=== PATIENT | male | born 1960 | race Caucasian/White ===

== ENCOUNTER → 2016-08-29 | Outpatient (CLI) | payer BC ==
[~2016-08-29] MED LIST: LOSA100T65 PO; ONDA4TAB10 SL; PANT1TAB48 PO; VTMD1000 PO
[2016-08-29 14:16] LABS: ESTIMATED AVERAGE GLUCOSE 148 mg/dl; HA1C FLAG Normal (Normal)
[2016-08-29 14:20] LABS: ALT/SGPT 33 U/L (12-78); BLOOD UREA NITROGEN 11 mg/dl (7-18); BUN/CREATININE RATIO 13.6 (10-20); CALCIUM 9.1 mg/dl (8.5-10.1); CARBON DIOXIDE 24 mmol/L (21-32); CHLORIDE 107 mmol/L (98-107); CREATININE 0.84 mg/dl (0.60-1.40); GLUCOSE 114 mg/dl (70-99); POTASSIUM 3.9 mmol/L (3.5-5.1); SODIUM 141 mmol/L (136-145)
[2016-08-29 14:23] LABS: ALB/GLOB RATIO 0.9 (0.9-2); ALKALINE PHOSPHATASE 73 U/L (45-117); AST/SGOT 21 U/L (15-37)
== END | disposition home or self-care (01) ==
LOC: C.LABBC 09:14
PROVIDERS: ATTEND Family Medicine
DX: I10 Essential (primary) hypertension (principal); E11.9 Type 2 diabetes mellitus without complications

== ENCOUNTER → 2017-01-16 | Outpatient (CLI) | payer BC ==
[~2017-01-16] MED LIST changes: -ONDA4TAB10 SL
[2017-01-16 13:39] LABS: BASO % 0.4 %; BASO ABS # 0.03 K/uL (0-0.2); COMPLETE YES; EOS % 4.8 %; HEMATOCRIT 41.3 % (42-52); IG% 0.5 %; LYMPH % 28.1 %; LYMPH ABS # 2.33 K/uL (1.2-3.4); MEAN CELL VOLUME 90.8 fL (80-100); MEAN CORPUSCULAR HEMOGLOBIN 30.3 pg (25-34); MEAN CORPUSCULAR HGB CONC 33.4 g/dl (32-36); MEAN PLATELET VOLUME 10.6 fL (7.4-10.4); MONO % 11.6 %; NEUT % 54.6 %; PLATELET COUNT 254 K/uL (130-400); RED BLOOD COUNT 4.55 M/uL (4.7-6.1); WHITE BLOOD COUNT 8.29 K/uL (4.8-10.8)
[2017-01-16 13:52] LABS: ESTIMATED AVERAGE GLUCOSE 137 mg/dl; HA1C FLAG Normal (Normal)
[2017-01-16 13:55] LABS: BLOOD UREA NITROGEN 13 mg/dl (7-18); BUN/CREATININE RATIO 13.9 (10-20); C-REACTIVE PROTEIN < 0.29 mg/dl (0-0.29); CALCIUM 8.8 mg/dl (8.5-10.1); CARBON DIOXIDE 26 mmol/L (21-32); CHLORIDE 106 mmol/L (98-107); CREATININE 0.94 mg/dl (0.60-1.40); GLUCOSE 106 mg/dl (70-99); POTASSIUM 3.8 mmol/L (3.5-5.1); SODIUM 139 mmol/L (136-145)
[2017-01-16 13:58] LABS: ALKALINE PHOSPHATASE 72 U/L (45-117); ALT/SGPT 41 U/L (12-78); AST/SGOT 26 U/L (15-37)
== END | disposition home or self-care (01) ==
LOC: C.LABBC 09:28
PROVIDERS: ATTEND Physician Assistant
DX: K50.90 Crohn's disease, unspecified, without complications (principal)

== ENCOUNTER → 2017-03-13 | Outpatient (CLI) | payer BC ==
[2017-03-13 16:49] LABS: BASO % 0.3 %; BASO ABS # 0.03 K/uL (0-0.2); COMPLETE YES; IG% 0.3 %; LYMPH % 28.6 %; MEAN CELL VOLUME 90.1 fL (80-100); MEAN CORPUSCULAR HEMOGLOBIN 31.1 pg (25-34); MEAN CORPUSCULAR HGB CONC 34.5 g/dl (32-36); MEAN PLATELET VOLUME 10.7 fL (7.4-10.4); NEUT % 57.8 %; PLATELET COUNT 279 K/uL (130-400); RED BLOOD COUNT 4.44 M/uL (4.7-6.1); WHITE BLOOD COUNT 8.73 K/uL (4.8-10.8)
[2017-03-13 17:08] LABS: ALT/SGPT 32 U/L (12-78); BLOOD UREA NITROGEN 17 mg/dl (7-18); BUN/CREATININE RATIO 19.3 (10-20); C-REACTIVE PROTEIN 0.41 mg/dl (0-0.29); CARBON DIOXIDE 26 mmol/L (21-32); CHLORIDE 108 mmol/L (98-107); CREATININE 0.89 mg/dl (0.60-1.40); GLUCOSE 157 mg/dl (70-99); POTASSIUM 3.6 mmol/L (3.5-5.1); SODIUM 140 mmol/L (136-145)
[2017-03-13 17:16] LABS: ALB/GLOB RATIO 0.9 (0.9-2); ALKALINE PHOSPHATASE 77 U/L (45-117); AST/SGOT 21 U/L (15-37)
[2017-03-13 17:20] LABS: URINE PROTIEN/CREAT RATIO 0.1 (0-0.2); URINE TOTAL PROTEIN 17.5 mg/dl (0-11.9)
--- NOTE | 2017-03-26 14:00 | CODING QUERY MEDICAL NECESSITY ---
CQSUPPORTING DIAGNOSIS NEEDED A supporting diagnosis is required for the test/procedure performed on this patient in order for us to be reimbursed by the patient's insurance. Please provide a supporting diagnosis for the following test/procedure listed below next to the test name along with your signature. *If there is no additional diagnosis for this patient that would support the following test/procedure please document that below next to the test/procedure. Test(s)/Procedure(s) that require a supporting diagnosis: DOS 03/13/17 PROSTATE SPECIFIC TEST ORDERED BY DIEGO BERNABE Provider Signature: Date: Thank you Mamta Felton Health Information Management Once completed, please kindly fax back to [phone] For questions please call [phone]
== END | disposition home or self-care (01) ==
LOC: C.LABBC 14:03
PROVIDERS: ATTEND Pediatrics Pediatric Hematology-Oncology
DX: Z00.00 Encounter for general adult medical examination without abnormal findings (principal); E11.9 Type 2 diabetes mellitus without complications; K50.90 Crohn's disease, unspecified, without complications

== ENCOUNTER → 2017-06-22 | Outpatient (CLI) | payer BC ==
[~2017-06-22] MED LIST changes: +ADAL40KI SC; +ATOR-24 PO; +CHOL2000 PO; -PANT1TAB48 PO; +PRT/20 PO; -VTMD1000 PO
--- NOTE | 2017-06-22 12:14 | DIAGNOSTIC IMAGING REPORT ---
CHEST 2 VIEWS ROUTINE HISTORY: 57 years-old Male CROHN'S DISEASE, K50.90 follow-up study. No acute chest complaints. COMPARISON: Portable chest radiograph 02/18/2016 TECHNIQUE: PA and lateral views of the chest FINDINGS: Cardiomediastinal and hilar silhouettes are within normal limits. No pneumothorax, pleural effusion, focal airspace consolidation or overt pulmonary edema. Bones of the chest are grossly intact. Mild multilevel endplate spurring of the spine. IMPRESSION: No acute cardiopulmonary process. The above report was generated using voice recognition software. It may contain grammatical, syntax or spelling errors. Electronically signed by: Nahum Concepcion M.D. 06/22/2017 12:13 PM Dictated Date/Time: 06/22/2017 12:12 PM
[2017-06-22 13:55] LABS: BASO % 0.4 %; BASO ABS # 0.03 K/uL (0-0.2); COMPLETE YES; EOS % 4.7 %; HEMATOCRIT 40.3 % (42-52); IG% 0.5 %; LYMPH % 30.2 %; LYMPH ABS # 2.53 K/uL (1.2-3.4); MEAN CELL VOLUME 92.2 fL (80-100); MEAN CORPUSCULAR HEMOGLOBIN 30.4 pg (25-34); MEAN PLATELET VOLUME 10.8 fL (7.4-10.4); MONO % 9.3 %; NEUT % 54.9 %; PLATELET COUNT 274 K/uL (130-400); RED BLOOD COUNT 4.37 M/uL (4.7-6.1); WHITE BLOOD COUNT 8.38 K/uL (4.8-10.8)
[2017-06-22 14:43] LABS: ALT/SGPT 39 U/L (12-78); AST/SGOT 19 U/L (15-37); BLOOD UREA NITROGEN 13 mg/dl (7-18); BUN/CREATININE RATIO 11.8 (10-20); CALCIUM 9.2 mg/dl (8.5-10.1); CARBON DIOXIDE 24 mmol/L (21-32); CHLORIDE 109 mmol/L (98-107); CREATININE 1.08 mg/dl (0.60-1.40); GLUCOSE 182 mg/dl (70-99); POTASSIUM 3.9 mmol/L (3.5-5.1); SODIUM 141 mmol/L (136-145)
[2017-06-22 14:46] LABS: ALB/GLOB RATIO 0.9 (0.9-2); ALKALINE PHOSPHATASE 79 U/L (45-117); C-REACTIVE PROTEIN < 0.29 mg/dl (0-0.29)
== END | disposition home or self-care (01) ==
LOC: C.RADBC 11:47
PROVIDERS: ATTEND Physician Assistant
DX: K50.90 Crohn's disease, unspecified, without complications (principal)

== ENCOUNTER → 2017-09-21 | Outpatient (CLI) | payer BC ==
[2017-09-21 13:56] LABS: HEMOGLOBIN A1C 6.5 % (4.5-5.6)
[2017-09-21 14:55] LABS: ALBUMIN 3.4 gm/dl (3.4-5.0); BLOOD UREA NITROGEN 14 mg/dl (7-18); CALCIUM 9.1 mg/dl (8.5-10.1); CARBON DIOXIDE 26 mmol/L (21-32); CREATININE 0.85 mg/dl (0.60-1.40); GLUCOSE 107 mg/dl (70-99); POTASSIUM 4.1 mmol/L (3.5-5.1); SODIUM 140 mmol/L (136-145)
[2017-09-21 14:59] LABS: ALKALINE PHOSPHATASE 73 U/L (45-117); ALT/SGPT 37 U/L (12-78); AST/SGOT 23 U/L (15-37); CHOLESTEROL 100 mg/dl (0-200); LDL CHOLESTEROL CALCULATED 27 mg/dl; TOTAL PROTEIN 7.1 gm/dl (6.4-8.2)
== END | disposition home or self-care (01) ==
LOC: C.LABBC 11:30
PROVIDERS: ATTEND Physician Assistant Medical
DX: I10 Essential (primary) hypertension (principal); E11.9 Type 2 diabetes mellitus without complications; E78.5 Hyperlipidemia, unspecified

== ENCOUNTER → 2017-10-20 | Outpatient (CLI) | payer BC ==
[2017-10-20 16:49] LABS: BASO % 0.4 %; BASO ABS # 0.03 K/uL (0-0.2); EOS % 3.4 %; EOS ABS # 0.27 K/uL (0-0.5); HEMATOCRIT 41.4 % (42-52); IG# 0.02 K/uL (0.00-0.02); LYMPH % 26.8 %; LYMPH ABS # 2.11 K/uL (1.2-3.4); MEAN CELL VOLUME 91.4 fL (80-100); MEAN CORPUSCULAR HEMOGLOBIN 30.9 pg (25-34); MEAN CORPUSCULAR HGB CONC 33.8 g/dl (32-36); MEAN PLATELET VOLUME 11.1 fL (7.4-10.4); MONO % 9.8 %; MONO ABS # 0.77 K/uL (0.11-0.59); NEUT % 59.3 %; NEUT ABS # 4.68 K/uL (1.4-6.5); PLATELET COUNT 265 K/uL (130-400); RED CELL DISTRIBUTION WIDTH CV 12.5 % (11.5-14.5); RED CELL DISTRIBUTION WIDTH SD 41.8 fL (36.4-46.3); WHITE BLOOD COUNT 7.88 K/uL (4.8-10.8)
[2017-10-20 16:58] LABS: ALBUMIN 3.6 gm/dl (3.4-5.0); ALT/SGPT 40 U/L (12-78); AST/SGOT 27 U/L (15-37); BLOOD UREA NITROGEN 15 mg/dl (7-18); CALCIUM 8.8 mg/dl (8.5-10.1); CARBON DIOXIDE 23 mmol/L (21-32); CREATININE 0.95 mg/dl (0.60-1.40); GLUCOSE 136 mg/dl (70-99); POTASSIUM 3.8 mmol/L (3.5-5.1); SODIUM 139 mmol/L (136-145)
[2017-10-20 17:06] LABS: ALKALINE PHOSPHATASE 86 U/L (45-117); TOTAL PROTEIN 7.6 gm/dl (6.4-8.2)
[2017-10-23 13:07] LABS: QUANTIF MITOGEN-NIL >10.00 IU/ML; QUANTIFERON NEGATIVE (NEGATIVE); QUANTIFERON NIL 0.02 IU/ML
== END | disposition home or self-care (01) ==
LOC: C.LABBC 14:25
PROVIDERS: ATTEND Physician Assistant
DX: K50.90 Crohn's disease, unspecified, without complications (principal)

== ENCOUNTER → 2017-11-16 | Outpatient (CLI) | payer BC | END | disposition home or self-care (01) | LOC: C.MAMM 07:54 | PROVIDERS: ATTEND Physician Assistant | DX: M85.852 Other specified disorders of bone density and structure, left thigh (principal); K50.90 Crohn's disease, unspecified, without complications ==

== ENCOUNTER 2019-01-09 11:23 | Inpatient (IN) ==
[2019-01-09] MEDS ORDERED: ONDANSETRON INJ 2 MG/ML 2 ML VIAL IV STA (11:56)
[2019-01-09 12:29] LABS: Hematocrit (blood only) 43.5 % (42-52); Hemoglobin 15.4 g/dL (14.0-18.0); Mean Corpuscular Hgb Conc 35.4 g/dL (32-36); Mean Corpuscular Volume 87.7 fL (80-100); Mean Platelet Volume 10.2 fL (7.4-10.4); Platelet Count 361 K/uL (130-400); RDW Coefficient of Variation 12.1 % (11.5-14.5); RDW Standard Deviation 39.3 fL (36.4-46.3); Red Blood Count 4.96 M/uL (4.7-6.1); White Blood Count 22.17 K/uL (4.8-10.8)
[2019-01-09] MEDS: SODIUM CHLORIDE 0.9% 1000ML 1,000 ML IV SCH ×3 (12:38→18:13)
[2019-01-09 12:47] LABS: Albumin Level 3.2 gm/dl (3.4-5.0); BUN Creatinine Ratio 18.5 (10-20); C Reactive Protein 7.84 mg/dl (0-0.29); Calcium 9.3 mg/dl (8.5-10.1); Creatinine Clr Calc Pharmacy 57.5 ml/min; Est GFR (African American) 61.6; Est GFR (Non-African American) 53.1; Potassium 3.7 mmol/L (3.5-5.1)
[2019-01-09 12:49] LABS: Albumin Globulin Ratio 0.7 (0.9-2); Bilirubin,Total 0.6 mg/dl (0.2-1); Globulin 4.8 gm/dl (2.5-4.0)
[2019-01-09 13:28] LABS: Basophils # (auto) 0.08 K/uL (0-0.2); Basophils % (auto) 0.4 %; Eosinophils % (auto) 1.4 %; Immature Granulocytes # (auto) 1.38 K/uL (0.00-0.02); Immature Granulocytes % (auto) 6.2 %; Lymphocytes # (auto) 2.51 K/uL (1.2-3.4); Lymphocytes % (auto) 11.3 %; Monocytes # (auto) 2.49 K/uL (0.11-0.59); Monocytes % (auto) 11.2 %; Neutrophils # (auto) 15.41 K/uL (1.4-6.5); Neutrophils % (auto) 69.5 %
--- NOTE | 2019-01-09 14:01 | Emergency Department Note ---
Entered by Heladio Yuan acting as a scribe for Emmett Henriquez M.D. History of Present Illness General Chief complaint: Diarrhea Stated complaint: DIARRHEA,BLOODY STOOL,CRAMPING Source: patient History of Present Illness Onset (ago): week(s) 1 Location: abdomen (lower) Pain Consistency: + other (persistent) Quality: + other (abdominal cramping, diarrhea with occasional blood) Relieved By: not by medication (Cipro, Flagyl) Associated symptoms: + other (nausea without vomiting) The patient is a 58 year old male with a history of Crohns disease who presents to the Emergency Room with complaints of persistent lower abdominal cramping and diarrhea for the past week. The patient reports that he was evaluated in the ER four days ago for his symptoms. He was hydrated with fluids and was started on Cipro and Flagyl. He reports that there has been no improvement with the antibiotics, and his diarrhea has been worsening. He states that he has had diarrhea about 20 times daily, and he has now developed blood in his bowel movements. He reports that this morning he had 3 bloody bowel movements, and upon arrival to the ER he had another without blood. The patient also reports lower abdominal cramping as well as nausea and dry-heaving without vomiting. He states that he is having difficulty staying hydrated. He notes that he was lightheaded four days ago. He denies any fevers. He states that his last Crohns flare was in 2015. He reports that there was a 10-week period earlier this year when he was unable to take his usual Humira. He states that he has a colonoscopy scheduled for tomorrow. Home Medications Home Medications Medication Instructions Recorded Confirmed Type adalimumab [Humira] 40 mg SUBCUT WK 01/05/19 01/09/19 History atorvastatin [Lipitor] 40 mg PO QAM 01/05/19 01/09/19 History cholecalciferol (vitamin D3) 1,000 unit PO QAM 01/05/19 01/09/19 History [Vitamin D3] ciprofloxacin HCl [Cipro] 500 mg PO BID 10 Days #20 tab 01/05/19 01/09/19 Rx pantoprazole [Protonix] 40 mg PO QAM 01/05/19 01/09/19 History telmisartan 80 mg PO QAM 01/05/19 01/09/19 History metformin 500 mg PO QPM 01/09/19 01/09/19 History Allergies Allergy/AdvReac Type Severity Reaction Status Date / Time aspirin Allergy Unknown "DOES NOT Verified 01/09/19 12:19 TAKE BECAUSE OF BLEEDING" banana Allergy Unknown itching Verified 01/09/19 12:19 metformin Allergy STOMACH Verified 01/09/19 12:19 CRAMPS AND DIARRHEA lisinopril AdvReac Mild dry Verified 01/09/19 12:19 scratchy throat with cough ramipril AdvReac Mild dry Verified 01/09/19 12:19 scratchy throat with cough Past Med/Surg History Medical History Obesity (BMI 30.0-34.9) Crohns disease CURRENTLY HAVING DIARRHEA GERD (gastroesophageal reflux disease) History of renal stone Hx of Guillain-Kingsland syndrome RESIDUAL EFFECT BALANCE ISSUES AND CANNOT STAND STILL Hyperlipidemia Hypertension Surgical History Hx of abdominal surgery X3 - CURRENTLY HAS "J POUCH" Hx of appendectomy Hx of tonsillectomy Family History Other No significant family history Social History Preferred Language: Citizen Of [place] Communication Ability: Effective 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 and A total of 10 systems reviewed and were otherwise negative Physical Exam Vital Signs Vital Signs - 24 hr 01/09/19 11:26 01/09/19 14:01 Temperature 36.9 C Temperature Source Oral Sepsis Recent Fever Within 48 Hours No Sepsis New/Unexplained Change in Mental Status No Sepsis Action Taken by Nursing No Action Required Pulse Rate 100 H Pulse Rate [Apical] 91 H Respiratory Rate 16 18 Respiratory Effort / Characteristics Non-Labored Respiratory Depth Normal Blood Pressure 117/79 Blood Pressure [Left Arm] 95/66 L Blood Pressure Mean 91 Blood Pressure Mean [Left Arm] 75 Pulse Oximetry 96 98 Oxygen Delivery Method Room Air GENERAL: Awake, alert, in no distress HENT: Normocephalic, atraumatic. Mucous membranes are dry. EYES: Normal conjunctiva. Sclera non-icteric. NECK: Supple. No nuchal rigidity. RESPIRATORY: Clear to auscultation. Normal respiratory effort. CARDIAC: Normal rate. Normal rhythm. Extremities warm and well perfused. GI: Soft, non-distended. Minimal lower abdominal tenderness to palpation. No rebound or guarding. RECTAL: Hemoccult positive. MUSCULOSKELETAL: Atraumatic. Chest examination reveals no tenderness. LOWER EXTREMITIES: Calves are equal size bilaterally and non-tender. No edema NEURO: Normal sensorium. No sensory or motor deficits noted. No facial droop. SKIN: Warm and dry. No rash or jaundice noted. Course 1148: The patient was evaluated in room A9B. A complete history and physical examination were performed. 1348: I consulted Dr. Jerrell MORALES, who is in agreement with IV steroids. 1353: I consulted Dr. Manuel [facility] Hospitalist. The patient will be reevaluated for hospitalization. Administered Medications Discontinued Medications Sodium Chloride (Nss 1000ml) 1,000 mls @ 999 mls/hr IV .Q1H1M JACOB Stop: 01/09/19 14:00 Last Infusion: 01/09/19 13:33 Dose: 0 mls/hr Documented by: [id number] Admin: 01/09/19 12:38 Dose: 999 mls/hr Documented by: [id number] Methylprednisolone (Solumedrol) 40 mg IV NOW STA Stop: 01/09/19 13:51 Last Admin: 01/09/19 14:00 Dose: 40 mg Documented by: [id number] Ondansetron HCl (Zofran) 4 mg IV NOW STA Stop: 01/09/19 11:57 Last Admin: 01/09/19 12:37 Dose: 4 mg Documented by: [id number] Medical Decision Making Differential Diagnosis Differential diagnosis includes: appendicitis, diverticulitis, PUD, biliary pathology, UTI, pancreatitis, obstruction, mesenteric ischemia, aortic pathology, infections, inflammatory bowel disease, renal colic, as well as others were entertained. Medical Records Attestation: I reviewed the patient's medical records. Home Medications Current Medication List: was personally reviewed by me Laboratory Data Attestation: I reviewed the patient's lab results. Result diagrams: 01/09/19 12:15 06/23/19 12:15 Lab Results 01/09/19 01/09/19 01/09/19 Range/Units 12:15 12:15 12:15 WBC 22.17 H (4.8-10.8) K/uL RBC 4.96 (4.7-6.1) M/uL Hgb 15.4 (14.0-18.0) g/dL Hct 43.5 (42-52) % MCV 87.7 (80-100) fL MCH 31.0 (25-34) pg MCHC 35.4 (32-36) g/dL RDW Std Deviation 39.3 (36.4-46.3) fL RDW Coeff of Selina 12.1 (11.5-14.5) % Plt Count 361 (130-400) K/uL MPV 10.2 (7.4-10.4) fL Immature Gran % (Auto) 6.2 % Neut % (Auto) 69.5 % Lymph % (Auto) 11.3 % [place] % (Auto) 11.2 % Eos % (Auto) 1.4 % Baso % (Auto) 0.4 % Immature Gran # (Auto) 1.38 H (0.00-0.02) K/uL Neut # (Auto) 15.41 H (1.4-6.5) K/uL Lymph # (Auto) 2.51 (1.2-3.4) K/uL [place] # (Auto) 2.49 H (0.11-0.59) K/uL Eos # (Auto) 0.30 (0-0.5) K/uL Baso # (Auto) 0.08 (0-0.2) K/uL ESR 75 H (0-14) mm/hr Sodium 132 L (136-145) mmol/L Potassium 3.7 (3.5-5.1) mmol/L Chloride 99 (98-107) mmol/L Carbon Dioxide 22 (21-32) mmol/L Anion Gap 11.0 (3-11) BUN 27 H (7-18) mg/dl Creatinine 1.44 H (0.6-1.4) mg/dl Est Cr Clr Drug Dosing 57.5 ml/min Est GFR ( Amer) 61.6 Est GFR (Non-Af Amer) 53.1 BUN/Creatinine Ratio 18.5 (10-20) Glucose 157 H (70-99) mg/dl POC Lactic Acid Dave (0.90-1.70) mmol/L Calcium 9.3 (8.5-10.1) mg/dl Total Bilirubin 0.6 (0.2-1) mg/dl AST 20 (15-37) U/L ALT 31 (12-78) U/L Alkaline Phosphatase 94 (45-117) U/L C-Reactive Protein 7.84 H (0-0.29) mg/dl Total Protein 8.0 (6.4-8.2) gm/dl Albumin 3.2 L (3.4-5.0) gm/dl Globulin 4.8 H (2.5-4.0) gm/dl Albumin/Globulin Ratio 0.7 L (0.9-2) Lipase 162 (73-393) U/L Urine Color Urine Appearance (Clear) Urine pH (4.5-7.5) Ur Specific [place] (1.000-1.030) Urine Protein (Negative) Urine Glucose (UA) (Negative) Urine Ketones (Negative) Urine Blood (Negative) Urine Nitrite (Negative) Urine Bilirubin (Negative) Urine Urobilinogen (Negative) Ur Leukocyte Esterase (Negative) Urine WBC (Auto) (0-5) /hpf Urine RBC (Auto) (0-4) /hpf U Hyaline Cast (Auto) (0-5) /lpf U Epithel Cells (Auto) (0-5) /lpf Urine Bacteria (Auto) (Negative) Ur Renal Epithelial Cell 01/09/19 01/09/19 Range/Units 12:23 14:00 WBC (4.8-10.8) K/uL RBC (4.7-6.1) M/uL Hgb (14.0-18.0) g/dL Hct (42-52) % MCV (80-100) fL MCH (25-34) pg MCHC (32-36) g/dL RDW Std Deviation (36.4-46.3) fL RDW Coeff of Selina (11.5-14.5) % Plt Count (130-400) K/uL MPV (7.4-10.4) fL Immature Gran % (Auto) % Neut % (Auto) % Lymph % (Auto) % [place] % (Auto) % Eos % (Auto) % Baso % (Auto) % Immature Gran # (Auto) (0.00-0.02) K/uL Neut # (Auto) (1.4-6.5) K/uL Lymph # (Auto) (1.2-3.4) K/uL [place] # (Auto) (0.11-0.59) K/uL Eos # (Auto) (0-0.5) K/uL Baso # (Auto) (0-0.2) K/uL ESR (0-14) mm/hr Sodium (136-145) mmol/L Potassium (3.5-5.1) mmol/L Chloride (98-107) mmol/L Carbon Dioxide (21-32) mmol/L Anion Gap (3-11) BUN (7-18) mg/dl Creatinine (0.6-1.4) mg/dl Est Cr Clr Drug Dosing ml/min Est GFR ( Amer) Est GFR (Non-Af Amer) BUN/Creatinine Ratio (10-20) Glucose (70-99) mg/dl POC Lactic Acid Dave 1.61 (0.90-1.70) mmol/L Calcium (8.5-10.1) mg/dl Total Bilirubin (0.2-1) mg/dl AST (15-37) U/L ALT (12-78) U/L Alkaline Phosphatase (45-117) U/L C-Reactive Protein (0-0.29) mg/dl Total Protein (6.4-8.2) gm/dl Albumin (3.4-5.0) gm/dl Globulin (2.5-4.0) gm/dl Albumin/Globulin Ratio (0.9-2) Lipase (73-393) U/L Urine Color Yellow Urine Appearance Cloudy A (Clear) Urine pH 5.5 (4.5-7.5) Ur Specific [place] 1.014 (1.000-1.030) Urine Protein 1+ H (Negative) Urine Glucose (UA) Negative (Negative) Urine Ketones Negative (Negative) Urine Blood Negative (Negative) Urine Nitrite Negative (Negative) Urine Bilirubin Negative (Negative) Urine Urobilinogen Negative (Negative) Ur Leukocyte Esterase Negative (Negative) Urine WBC (Auto) 5-10 H (0-5) /hpf Urine RBC (Auto) 0-4 (0-4) /hpf U Hyaline Cast (Auto) 1-5 (0-5) /lpf U Epithel Cells (Auto) 5-10 H (0-5) /lpf Urine Bacteria (Auto) 1+ H (Negative) Ur Renal Epithelial Cell Not Reportable ECG Data Attestation: I personally reviewed and interpreted this ECG as follows: Indication: other (GI bleeding) Rate (beats per minute): 97 Rhythm: normal sinus Findings: + other (normal intervals); no PVC, no ST depression and no ST elevation Blood Pressure Blood Pressure Findings: Normal blood pressure Blood Pressure Disposition: did not require urgent referral MDM Narrative Patient is a 58-year-old gentleman with a history of Crohn's disease prior proctocolectomy with J-pouch evaluated here on Thursday for diarrheal symptoms. Imaging at that point showed some evidence of bowel thickening concerning for possible pouchitis or enteritis. This was discussed with his telephone solicitor. He received IV fluids and started on Cipro and Flagyl. No steroids were started at that time. Patient states that he continues to have significant abdominal cramping and diarrhea has noticed redness of blood when he has bowel movements. Afebrile upon arrival here. Prior stool testing and C. difficile testing was negative. Patient denies fever or trauma. Denies syncope. States that having several episodes of bloody bowel movements this morning. Last bowel movement was not bloody. Patient states he is scheduled for a colonoscopy tomorrow. There was a break in his compliance with Humira to be getting a year secondary to insurance issues that resolved several months ago. Patient's lactate not significant elevated but leukocytosis worsening today from 16 -> 22. No significant anemia or thrombocytopenia but evidence of Hemoccult positive stool. Not on anticoagulants or antiplatelet medication. P atient declined initial pain medication. Patient has had prior admission for acute blood loss anemia requiring transfusion proximal he 4 years ago. Hemoglobin stable today but plantar markers elevated consistent with Crohn's flare. 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 Patient later related that his GI doctor ordered 40 mg of prednisone from Thursday but he was unable to make it to the pharmacy until today due to his illness and has not taken any yet. Patient is requesting IV steroids. Discussed with the GI doctor welding machine operator electron beam. Patient also states he is scheduled to have a outpatient colonoscopy done tomorrow afternoon. Patient is very concerned about going home given given the bleeding and he weakness he is feeling. Discussed with the on-call GI doctor and hospitalist. We will put on 40 mg of methylprednisone at this time. Should do bowel prep tonight. Hydrated via IV. Impression & Plan Crohn's disease, DULCE MARIA (acute kidney injury) Discharge Plan Visit Data Chief Complaint: Diarrhea Stated Complaint: DIARRHEA,BLOODY STOOL,CRAMPING ED Provider: Emmett Henriquez Discharge Problem: Crohn's disease, DULCE MARIA (acute kidney injury) Patient Disposition: Being Evaluated by Hospitalist Forms Stand Alone Forms: My [facility] Prescriptions Prescriptions: No Action atorvastatin [Lipitor] 40 mg Tablet 40 mg PO QAM RF: 0 pantoprazole [Protonix] 20 mg Tablet,Delayed Release (Dr/Ec) 40 mg PO QAM RF: 0 cholecalciferol (vitamin D3) [Vitamin D3] 1,000 unit Capsule 1,000 unit PO QAM RF: 0 Humira 10 mg/0.2 mL Syringe Kit 40 mg subcut WK RF: 0 telmisartan 20 mg Tablet 80 mg PO QAM RF: 0 ciprofloxacin HCl [Cipro] 500 mg tablet 500 mg PO BID 10 Days Qty: 20 RF: 0 metformin 500 mg 500 mg PO QPM RF: 0 Referrals Referrals: Emiliana Osborn PA-C [Primary Care Provider] - Discharge Problem: Crohn's disease Qualifiers: Gastrointestinal tract location: unspecified location Digestive disease complication type: with rectal bleeding Qualified Code(s): K50.911 - Crohn's disease, unspecified, with rectal bleeding The scribe's documentation has been prepared under my direction and personally reviewed by me in its entirety. I confirm that the note above accurately reflects all work, treatment, procedures, and medical decision making performed by me.
--- NOTE | 2019-01-09 14:08 | History & Physical Report ---
Date of Service January 09, 2019 Assessment & Plan (1) Crohn's colitis: (2) Crohn's disease: - Admit to med surg - GI consultation Had planned on outpatient colonoscopy tomorrow Pt brought bowel prep with him - Clear liquid diet until seen by GI, Case will defer colonoscopy and bowel prep to their team - will make NPO after midnight in the event colonoscopy tomorrow - Pt pain tolerable currently, can use IV ms for pain if needed. - Was administered Solu-Medrol 40 mg IV in the ER, will continue on prednisone 40 mg daily and taper down gradually over next 4 weeks. - Uses Humira 40 mg subcu weekly as outpatient, last taken this morning. He has been using Humira for past 3 years per report and works well. Insurance denied coverage in July where he missed approximately 10 weeks of medication however did not have relapse of sx. Resumed in September with weekly injections. (3) DULCE MARIA (acute kidney injury): - Creatinine = 1.44, baseline appears to be ~0.8 - Follow a.m. PRP - NSS at 125 ml/hr (4) HTN (hypertension): - Hold telmisartan 80 mg QAm for now, can resume per day team. BP borderline low currently, likely secondary to volume depletion. (5) Hyponatremia: - Sodium 132, likely to improve with normal saline - Follow am prp (6) Obesity (BMI 30.0-34.9): - Diet and exercise to be encouraged - BMI of 32.8 (7) DVT prophylaxis: -Teds, no chemical ppx secondary to above, ambulatory History of Present Illness Primary Care Provider: Emiliana Osborn PA-C This is a 58 yo male with past medical history of Crohn's disease, Guillain Santiago, ulcerative colitis, HTN, hyponatremia, and DULCE MARIA who presents to the hospital with acute onset of diarrhea and abdominal pain. The sx initially started on 01/02/19. He was evaluated in the ER on He was here in the ER on 12/18 04/07 for similar complaints and underwent CT of the abd/pelvis which showed extensive small bowel wall thickening, interestingly it also showed a solid 7 mm LLL pulmonary nodule (which can be followed up upon at later date), as well as circumferential bladder wall thickening. He was given RX for cipro and flagyl. Pt was seen in GI office on 01/07/19 by Nani Portillo and was told to continue cipro but stopped flagyl due to having dry heaves, a metal taste in his mouth, and increased diarrhea which may have been due to the PO contrast he had with CT scan while in the ER. Pt had A1C checked recently which was 7.1, and was instructed to start metformin, but has not taken this due to the Crohns flare. The patient notes that Ap, 01/07/19, he began to experience more left sided abdominal pain, diarrhea more than 20x per day, and then stools went from being dark to have streaking of bright red blood. He admits to dry heaves, no vomiting. He has a bowel prep with him along which he was planning on starting tonight for colonscopy which was scheduled as an outpatient for tomorrow with Dr. Bird to determine pouchititis vs active Crohns disease. Allergies Allergy/AdvReac Type Severity Reaction Status Date / Time aspirin Allergy Unknown "DOES NOT Verified 01/09/19 12:19 TAKE BECAUSE OF BLEEDING" banana Allergy Unknown itching Verified 01/09/19 12:19 metformin Allergy STOMACH Verified 01/09/19 12:19 CRAMPS AND DIARRHEA lisinopril AdvReac Mild dry Verified 01/09/19 12:19 scratchy throat with cough ramipril AdvReac Mild dry Verified 01/09/19 12:19 scratchy throat with cough Home Medications Home Medications Medication Instructions Recorded Confirmed Type adalimumab [Humira] 40 mg SUBCUT WK 01/05/19 01/09/19 History atorvastatin [Lipitor] 40 mg PO QAM 01/05/19 01/09/19 History cholecalciferol (vitamin D3) 1,000 unit PO QAM 01/05/19 01/09/19 History [Vitamin D3] ciprofloxacin HCl [Cipro] 500 mg PO BID 10 Days #20 tab 01/05/19 01/09/19 Rx pantoprazole [Protonix] 40 mg PO QAM 01/05/19 01/09/19 History telmisartan 80 mg PO QAM 01/05/19 01/09/19 History metformin 500 mg PO QPM 01/09/19 01/09/19 History Past Med/Surg History Medical History Obesity (BMI 30.0-34.9) Crohns disease CURRENTLY HAVING DIARRHEA GERD (gastroesophageal reflux disease) History of renal stone Hx of Guillain-Rodney syndrome RESIDUAL EFFECT BALANCE ISSUES AND CANNOT STAND STILL Hyperlipidemia Hypertension Surgical History Hx of abdominal surgery X3 - CURRENTLY HAS "J POUCH" Hx of appendectomy Hx of tonsillectomy Family History Other No significant family history Social History Preferred Language: [place] Communication Ability: Effective 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 Beliefs That Will Affect Care: None Current Living Situation: Alone Other Information That Helps Us Care for You: No Feels Safe at Home: Yes Safety Concerns: Feels Safe At This Time Smoking Status: Never smoker Do You Dip or Chew Tobacco: No Second Hand Exposure: No Tobacco Cessation Education Requested by Patient: No Hx Alcohol Use: No Hx Substance Use: No Review of Systems Review of Systems: Constitutional: No fever, sweats or chills Eyes: No diplopia, no worsening or blurred vision ENT: normal hearing, no trouble swallowing Respiratory: No cough, sputum, dyspnea at rest or on exertion Cardiovascular: No chest pain, tightness or palpitations Abdomen: As per HPI. Musculoskeletal: No joint pain, calf pain, swelling Neurologic: No weakness, numbness/tingling, or balance problems Psychiatric: No anxiety or depression Skin: No rash or itch Physical Exam Physical Exam: General: awake, alert, no apparent distress, + obese Head: Normocephalic, atraumatic ENT: PERRL, EOMI, no pharyngeal exudate, mucous membranes moist Chest: Clear to auscultation, on room air, no adventitious breath sounds Cardiac: Regular rate and rhythm, no murmur, no JVD, normal peripheral pulses, good capillary refill Abdominal: NABS x 4 quadrants, soft, nondistended, + tenderness suprapubically and in the LLQ, no rebound, guarding or tenderness Extremities: Normal inspection, no peripheral edema or erythema, calfs nontender to palpation Psych: Normal mood and affect Neuro: AAO x 3, no motor deficits, speech is clear Results & Data Vital Signs (Past 12 Hours) Vital Signs Temp Pulse Pulse Resp BP BP Pulse Ox 01/09/19 14:01 91 H 18 95/66 L 98 01/09/19 11:26 36.9 C 100 H 16 117/79 96 Code Status & VTE Plan Code Status DNR- discussed with the pt at bedside. Supervising Physician Co-Signing Physician Notes The patient was seen and examined by me and I agree with the assessment and plan done by Edith Abdi PA-C. The patient is being admitted with exacerbation of Crohn's disease and acute kidney injury. Metformin is on hold. IV fluids have been ordered. Lungs are clear. Heart rhythm is regular. Abdomen is nondistended with active bowel sounds. He is tender in the lower quadrants without overt rebound or guarding. White blood cell count is elevated as expected. Recent C. difficile toxin assay is negative. Creatinine 1.4 which should improve with IV fluids. Serial labs ordered. GI consultation pending. Continue steroid therapy PG Care Time/CCT Total # of Minutes Spent Total Time Spent with Patient: Total time spent is greater than 50% in coordination of care (as documented) at patient's floor/unit and/or counseling patient: (1) Crohn's disease Digestive disease complication type: with rectal bleeding Gastrointestinal tract location: unspecified location Qualified Code(s): K50.911 - Crohn's disease, unspecified, with rectal bleeding (2) Crohn's colitis Digestive disease complication type: without complication Qualified Code(s): K50.10 - Crohn's disease of large intestine without complications
[2019-01-09 14:27] LABS: Appearance Urine Cloudy (Clear); Bilirubin Urine Negative (Negative); Blood Urine Negative (Negative); Color Urine Yellow; Glucose Urine UA Negative (Negative); Ketones Urine Negative (Negative); Leukocyte Esterase Urine Negative (Negative); Nitrite Urine Negative (Negative); Protein Urine 1+ (Negative); Specific Gravity Urine 1.014 (1.000-1.030); Urobilinogen Urine Negative (Negative); pH Urine 5.5 (4.5-7.5)
[2019-01-09 14:41] LABS: Bacteria Urine Automated 1+ (Negative); RBC Urine Automated 0-4 /hpf (0-4)
--- NOTE | 2019-01-09 15:34 | History & Physical Report ---
Date of Service January 09, 2019 History of Present Illness Chief Complaint: Diarrhea - somewhat blood tinged Primary Care Provider: Emiliana Osborn PA-C 58 yo male with crohn's colitis s/p colectomy with j pouch admitted now for diarrhea with aliyah of blood and leukocytosis. He followed with Dr. Bird's group- most recently saw Nani on Thursday after a recent ER visit one week ago. ER visit one week ago was for diarrhea- CT showed small bowel inflammation, dc'd home on cipro, flagyl which he took for 5 days, c diff was negative. He saw Nani on Thursday in follow-up, stopped Flagyl due to side effects, was to continue Cipro thru today. He was scheduled for an outpatient colon tomorrow with Dr. Bird and has his prep with him (SuPrep) Came to the er for more frequent loose stools, somewhat blood tinged. He is not willing to go home. Hemodynamically stabe in the ER. Labs sig for an elevated wbc count, mild jean. When seen on the floor, he reports he is still having diarrhea - not really increased in frequency. No other complaints. Willing to do the prep - prep is in bags at his bedside. Allergies Allergy/AdvReac Type Severity Reaction Status Date / Time aspirin Allergy Unknown "DOES NOT Verified 01/09/19 12:19 TAKE BECAUSE OF BLEEDING" banana Allergy Unknown itching Verified 01/09/19 12:19 metformin Allergy STOMACH Verified 01/09/19 12:19 CRAMPS AND DIARRHEA lisinopril AdvReac Mild dry Verified 01/09/19 12:19 scratchy throat with cough ramipril AdvReac Mild dry Verified 01/09/19 12:19 scratchy throat with cough Home Medications Home Medications Medication Instructions Recorded Confirmed Type adalimumab [Humira] 40 mg SUBCUT WK 01/05/19 01/09/19 History atorvastatin [Lipitor] 40 mg PO QAM 01/05/19 01/09/19 History cholecalciferol (vitamin D3) 1,000 unit PO QAM 01/05/19 01/09/19 History [Vitamin D3] ciprofloxacin HCl [Cipro] 500 mg PO BID 10 Days #20 tab 01/05/19 01/09/19 Rx pantoprazole [Protonix] 40 mg PO QAM 01/05/19 01/09/19 History telmisartan 80 mg PO QAM 01/05/19 01/09/19 History metformin 500 mg PO QPM 01/09/19 01/09/19 History Past Med/Surg History Medical History Obesity (BMI 30.0-34.9) Crohns disease CURRENTLY HAVING DIARRHEA GERD (gastroesophageal reflux disease) History of renal stone 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 BALANCE ISSUES AND CANNOT STAND STILL Hyperlipidemia Hypertension Surgical History Hx of abdominal surgery X3 - CURRENTLY HAS "J POUCH" Hx of appendectomy Hx of tonsillectomy Family History Other No significant family history Social History Preferred Language: Yi Communication Ability: Effective 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 Beliefs That Will Affect Care: None Current Living Situation: Alone Other Information That Helps Us Care for You: No Feels Safe at Home: Yes Safety Concerns: Feels Safe At This Time Smoking Status: Never smoker Do You Dip or Chew Tobacco: No Second Hand Exposure: No Tobacco Cessation Education Requested by Patient: No Hx Alcohol Use: No Hx Substance Use: No Review of Systems All systems reviewed & are unremarkable except as noted in HPI & below Physical Exam Physical Exam: Well nourished male in nad Eyes: PERRL, conjunctivae normal, anicteric sclerae Respiratory: Normal breathing pattern and excursion of his lungs Gastrointestinal (Abdomen): normal bowel sounds, soft, nontender, no hepatosplenomegaly Skin: naomi upper chest Neurologic: PERRL, EOMI, accommodation nl, no face palsy, no dysarthria Results & Data Vital Signs (Past 12 Hours) Vital Signs Temp Pulse Pulse Resp BP BP Pulse Ox 01/09/19 15:25 83 24 95/66 L 93 01/09/19 14:01 91 H 18 95/66 L 98 01/09/19 11:26 36.9 C 100 H 16 117/79 96 Labs reviewed - leukocytosis, slight bun/cr elevation Last CT reviewed from one week ago Supervising Physician Co-Signing Physician Notes 58 yo male with crohn's coliis s/p j pouch on outpatient [facility]. Recent ER visit with imaging suggestive of small bowel inflammation, c diff negative emilie a w few days ago, treated with cipro/flagyl. Now admitted for diarrhea- somewhat blood tinged, prior to starting bowel prep for outpatient colon tomorrow Worsening bowel movements- ? crohn's flare, check esr, crp, repeat c diff and stool culture. Would emprically start bowel prep for colon already that was scheduled for tomorrow afternoon with Dr. Bird (he has the bowel prep at his bedside- Suprep). I think it is okay for him to use this prep in accordance with hospital policies of using prep from home. If c diff returns +, then colon may have to be delayed. This consult was seen for Dr. Bird.
[2019-01-09] MEDS ORDERED: ONDANSETRON INJ 2 MG/ML 2 ML VIAL IV PRN (15:43)
[2019-01-09] MEDS ORDERED: ACETAMINOPHEN 325 MG TAB PO PRN (15:43)
[2019-01-09] MEDS ORDERED: Nursing to Pharmacy Communication ONE (18:15)
[2019-01-09] MEDS: SUPREP PO SCH (19:16)
[2019-01-10] MEDS: SODIUM CHLORIDE 0.9% 1000ML 1,000 ML IV SCH ×3 (01:12→21:25)
[2019-01-10 05:48] LABS: Hematocrit (blood only) 38.2 % (42-52); Hemoglobin 13.3 g/dL (14.0-18.0); Mean Corpuscular Hgb Conc 34.8 g/dL (32-36); Mean Corpuscular Volume 88.4 fL (80-100); Mean Platelet Volume 9.9 fL (7.4-10.4); Platelet Count 315 K/uL (130-400); RDW Coefficient of Variation 12.1 % (11.5-14.5); RDW Standard Deviation 39.2 fL (36.4-46.3); Red Blood Count 4.32 M/uL (4.7-6.1); White Blood Count 22.75 K/uL (4.8-10.8)
[2019-01-10] MEDS: SUPREP PO SCH (06:06)
[2019-01-10 06:18] LABS: Albumin Globulin Ratio 0.7 (0.9-2); Albumin Level 2.7 gm/dl (3.4-5.0); BUN Creatinine Ratio 22.1 (10-20); Bilirubin,Total 0.4 mg/dl (0.2-1); Calcium 8.5 mg/dl (8.5-10.1); Est GFR (African American) 109.2; Est GFR (Non-African American) 94.3; Globulin 4.1 gm/dl (2.5-4.0); Potassium 4.4 mmol/L (3.5-5.1); Total Protein 6.8 gm/dl (6.4-8.2)
[2019-01-10] MEDS: predniSONE 20 MG TAB PO SCH (09:00)
[2019-01-10] MEDS: ATORVASTATIN 40 MG TAB PO SCH (09:01)
[2019-01-10] MEDS: CHOLECALCIFEROL 1,000 UNITS TAB PO SCH (09:02)
[2019-01-10] MEDS: PANTOprazole 40 MG TAB PO SCH (09:02)
--- NOTE | 2019-01-10 09:03 | Anesthesiology Consultation ---
Date of Service January 10, 2019 Assessment & Plan (1) Encounter for pre-operative examination: Chart Review Chart Review: Acceptable Risk for Surgery History Surgery Operation Date: 01/10/19 15:30 Proposed Procedures p Colonoscopy Dr. Pelon Bird, DO Height/Weight Height: 5 ft 5 in Weight: 89.2 kg Allergies Allergy/AdvReac Type Severity Reaction Status Date / Time aspirin Allergy Unknown "DOES NOT Verified 01/09/19 12:19 TAKE BECAUSE OF BLEEDING" banana Allergy Unknown itching Verified 01/09/19 12:19 metformin Allergy STOMACH Verified 01/09/19 12:19 CRAMPS AND DIARRHEA lisinopril AdvReac Mild dry Verified 01/09/19 12:19 scratchy throat with cough ramipril AdvReac Mild dry Verified 01/09/19 12:19 scratchy throat with cough Medications Home Medications Medication Instructions Recorded Confirmed Last Taken adalimumab [Humira] 40 mg SUBCUT WK 01/05/19 01/09/19 01/09/19 atorvastatin [Lipitor] 40 mg PO QAM 01/05/19 01/09/19 01/05/19 cholecalciferol (vitamin D3) 1,000 unit PO QAM 01/05/19 01/09/19 01/09/19 [Vitamin D3] ciprofloxacin HCl [Cipro] 500 mg PO BID 10 Days #20 tab 01/05/19 01/09/19 01/09/19 pantoprazole [Protonix] 40 mg PO QAM 01/05/19 01/09/19 01/09/19 telmisartan 80 mg PO QAM 01/05/19 01/09/19 01/09/19 metformin 500 mg PO QPM 01/09/19 01/09/19 Unknown Active Medications Generic Name Dose Route Start Last Admin Trade Name Freq PRN Reason Stop Dose Admin Atorvastatin Calcium 40 mg 01/10/19 09:00 01/10/19 09:01 Lipitor PO 02/09/19 08:59 Not Given QAM JACOB Sodium Chloride 1,000 mls @ 125 mls/hr 01/09/19 15:45 01/10/19 08:59 Nss 1000ml IV 02/08/19 15:44 125 mls/hr .Q8H JACOB Administration Miscellaneous 1 ea 01/09/19 16:00 01/10/19 08:59 Order Awaiting Action N/A 07/23/19 15:59 Not Given QS JACOB Pantoprazole Sodium 40 mg 01/10/19 09:00 01/10/19 09:02 Protonix PO 02/09/19 08:59 40 mg QAM JACOB Administration Prednisone 40 mg 01/10/19 09:00 01/10/19 09:00 Prednisone PO 02/09/19 08:59 40 mg QAM JACOB Administration Vitamin D 1,000 units 01/10/19 09:00 01/10/19 09:02 Vitamin D3 PO 02/09/19 08:59 1,000 units QAM JACOB Administration Past Medical History Medical History Obesity (BMI 30.0-34.9) Crohns disease CURRENTLY HAVING DIARRHEA GERD (gastroesophageal reflux disease) History of renal stone Hx of Guillain-[place] syndrome RESIDUAL EFFECT BALANCE ISSUES AND CANNOT STAND STILL Hyperlipidemia Hypertension Past Family History Family History Other No significant family history Past Surgical History Surgical History Hx of abdominal surgery X3 - CURRENTLY HAS "J POUCH" Hx of appendectomy Hx of tonsillectomy Social History Smoking Status: Never smoker Do You Dip or Chew Tobacco: No Hx Alcohol Use: No Hx Substance Use: No substance use type: does not use Physical Exam Vital Signs Last Vital Signs Temp 36.6 C 01/10/19 07:08 Pulse 63 01/10/19 07:08 Resp 16 01/10/19 07:08 BP 123/79 01/10/19 07:08 Pulse Ox 94 01/10/19 07:08 Testing Laboratory Results 01/10/19 05:26 01/10/19 05:26 Urine Color Yellow 01/09/19 14:00 Urine Appearance Cloudy (Clear) A 01/09/19 14:00 Urine pH 5.5 (4.5-7.5) 01/09/19 14:00 Ur Specific [place] 1.014 (1.000-1.030) 01/09/19 14:00 Urine Protein 1+ (Negative) H 01/09/19 14:00 Urine Glucose (UA) Negative (Negative) 01/09/19 14:00 Urine Ketones Negative (Negative) 01/09/19 14:00 Urine Nitrite Negative (Negative) 01/09/19 14:00 Ur Leukocyte Esterase Negative (Negative) 01/09/19 14:00 Urine WBC (Auto) 5-10 /hpf (0-5) H 01/09/19 14:00 Urine RBC (Auto) 0-4 /hpf (0-4) 01/09/19 14:00 U Hyaline Cast (Auto) 1-5 /lpf (0-5) 01/09/19 14:00 U Epithel Cells (Auto) 5-10 /lpf (0-5) H 01/09/19 14:00 Urine Bacteria (Auto) 1+ (Negative) H 01/09/19 14:00 Electrocardiogram Date: 01/09/19 Findings: + NSR @ (97)
--- NOTE | 2019-01-10 09:55 | History & Physical Bridge Note ---
Date of Service January 10, 2019 History & Physical Bridge Note I have examined the patient, reviewed the History & Physical and in the interval since the performance of the History & Physical I have noted the following changes of clinical significance: no changes noted Patient reports rectal bleeding throughout the weekend. Completed prep. Has been NPO. Proceed with colonoscopy today to assess whether this is active Crohn's Disease of the small bowel vs pouchitis. Continue IV steroids, Continue Cipro. Further recommendations regarding long-term IBD management pending results of colonoscopy today. Supervising Physician Co-Signing Physician Notes Agree with CHRISTOPHER Arcos as above Abd: Soft, NT, ND, +BS Continue current therapy Proceed with colonoscopy
[2019-01-10] MEDS: CIPROFLOXACIN / D5W 200 MG/100 ML BAG IV SCH ×2 (10:29→21:24)
--- NOTE | 2019-01-10 13:18 | Hospitalist Progress Note ---
Date of Service January 10, 2019 Assessment & Plan (1) Crohn's disease: - Ongoing diarrhea which may be multifactorial - reports symptoms largely started after Metformin initiation which commonly causes GI upset and reports worsening symptoms with Flagyl; However also with blood stool and CT findings this could be a Crohn's exacerbation; Hgb is slightly reduced but partially could be dilution and will monitor and remains asymptomatic; C. diff negative - Placed NPO at current time pending colonoscopy - Currently no pain and will monitor - Utilizes Humira weekly with last dose on 01/09; Started Prednisone 40 mg daily and will continue pending GI input - GI following - discussed with Nani Portillo PA-C this AM - awaiting colonoscopy at this time Present on Admission?: Yes (2) DULCE MARIA (acute kidney injury): - Likely pre-renal in setting of GI losses - peaked at 1.44 and currently at baseline on 0.89 (baseline around 0.8) - Can continue IVF at current time pending diet advancement but may reduce rate down to more maintenance Present on Admission?: Yes (3) HTN (hypertension): - Can resume Telmisartan and monitor renal function/BP - did have some lower readings yesterday (systolic 90) but stable today Present on Admission?: Yes (4) Hyponatremia: - Improving - likely from losses - asymptomatic and will continue to monitor labs Present on Admission?: Yes (5) Type 2 diabetes mellitus: - Recently started on Metformin but ongoing GI symptoms - states he had this medication in the past and had GI issues - normally does improve once stabilized on it but may need to consider an alternative option - A1c is 7.1 - diet and exercise could essentially improve this as well - So far BSGs stable and will monitor (6) Obesity (BMI 30.0-34.9): - Diet and exercise to be encouraged - BMI of 32.8 (7) DVT prophylaxis: SCDs Disposition: Pending colonoscopy findings and improvement with diarrheal condition Subjective Pt reports feeling a bit better today. Not having abdominal pain. Completed his bowel prep but continues with BRBPR. Slight drop in Hgb but asymptomatic and likely some component of dilution. Remains with leukocytosis but afebrile. Sinus rhythm on monitor. Planning on colonoscopy this afternoon Review of Systems Constitutional: no fever and no chills Eyes: no worsening vision Ear, Nose, Mouth, Throat: no sore throat Respiratory: no cough and no dyspnea Cardiovascular: no chest pain, no palpitations and no edema Gastrointestinal: + diarrhea/loose stools and + blood in stools; no abdominal pain, no nausea, no vomiting and no constipation Genitourinary: no dysuria Musculoskeletal: no body aches Integumentary: no rash Physical Exam Constitutional: WD/WN, vitals as above Eyes: + anicteric sclerae ENMT: Ears: no hearing impairment Neck: trachea midline Respiratory: normal respiratory effort, lungs clear to auscultation Cardiovascular: RRR, no murmur, no edema Gastrointestinal (Abdomen): Inspection/Auscultation: + abdomen distended and normal bowel sounds Percussion/Palpation: abdomen nontender Musculoskeletal: Head/Neck/Chest: normocephalic and head atraumatic Skin: no rashes, warm and dry Neurologic: moves all extremities Psychiatric: A+Ox3, euthymic affect Results & Data Vital Signs (Past 12 Hours) Vital Signs Temp Pulse Pulse Resp BP BP Pulse Ox 01/10/19 11:24 36.7 C 75 18 122/79 95 01/10/19 07:08 36.6 C 63 16 123/79 94 01/10/19 04:38 36.5 C 65 18 124/72 96 PG Care Time/CCT Total # of Minutes Spent Total Time Spent with Patient: Total time spent is greater than 50% in coordination of care (as documented) at patient's floor/unit and/or counseling patient: (1) Crohn's disease Digestive disease complication type: with rectal bleeding Gastrointestinal tract location: unspecified location Qualified Code(s): K50.911 - Crohn's disease, unspecified, with rectal bleeding
--- NOTE | 2019-01-10 15:48 | Anesthesiology Progress Note ---
Date of Service January 10, 2019 Anesthesia Post Procedure Vital Signs Vital Signs: Temp Pulse Pulse Pulse Pulse Resp BP 01/10/19 15:35 76 16 01/10/19 14:17 36.7 C 70 16 125/69 01/10/19 11:24 36.7 C 75 18 01/10/19 07:08 36.6 C 63 16 123/79 01/10/19 04:38 36.5 C 65 18 124/72 01/09/19 23:36 36.5 C 75 20 147/95 H 01/09/19 23:14 69 01/09/19 19:43 36.9 C 93 H 20 128/74 BP Pulse Ox 01/10/19 15:35 98/55 L 95 01/10/19 14:17 93 01/10/19 11:24 122/79 95 01/10/19 07:08 94 01/10/19 04:38 96 01/09/19 23:36 95 01/09/19 23:14 01/09/19 19:43 94 Transfer of Care Handoff Completed per policy Notes Mental Status: alert / awake / arousable and participated in evaluation Nausea / Vomiting: adequately controlled Pain: adequately controlled Airway Patency, RR, SpO2: stable & adequate BP & HR: stable & adequate Hydration State: stable & adequate Anesthetic Complications: no major complications apparent and Pt Satisfied with anesthetic care
--- NOTE | 2019-01-10 16:02 | GI REPORT ---
Patient Name: Khoa Hale Procedure Date: 01/10/2019 3:07 PM Date of : 1960 Admit Type: Inpatient Age: 58 Gender: Male Attending MD: Roly Bird DO Procedure: Colonoscopy Providers: Roly Bird DO Referring MD: Raul Powell Indications: Chronic diarrhea Medicines: Monitored Anesthesia Care Complications: No immediate complications. Estimated Blood Loss: Estimated blood loss: none. Procedure: Pre-Anesthesia Assessment: - Prior to the procedure, a History and Physical was performed, and patient medications and allergies were reviewed. The patient's tolerance of previous anesthesia was also reviewed. The risks and benefits of the procedure and the sedation options and risks were discussed with the patient. All questions were answered, and informed consent was obtained. Prior Anticoagulants: The patient has taken no previous anticoagulant or antiplatelet agents. ASA Grade Assessment: III - A patient with severe systemic disease. After reviewing the risks and benefits, the patient was deemed in satisfactory condition to undergo the procedure. After I obtained informed consent, the scope was passed under direct vision. Throughout the procedure, the patient's blood pressure, pulse, and oxygen saturations were monitored continuously. The scope was introduced through the anus and advanced to the ileocolonic anastomosis. The terminal ileum was photographed. Findings: The perianal and digital rectal examinations were normal. There was evidence of a prior end-to-side ileo-anal anastomosis in the rectal pouch. This was patent and was characterized by friable mucosa, a hemorrhagic appearance and ulceration. The anastomosis was traversed. Biopsies were taken with a cold forceps for histology. A scattered area of mucosa in the terminal ileum was severely ulcerated. Biopsies were taken with a cold forceps for histology. Impression: - Patent end-to-side ileo-anal anastomosis, characterized by friable mucosa, a hemorrhagic appearance and ulceration. Biopsied. - Ulcerated mucosa in the terminal ileum. Biopsied. Recommendation: - Return patient to [facility] for ongoing care. - Clear liquid diet. - Continue present medications. - Await pathology results. Roly Bird DO 01/10/2019 4:02:18 PM This report has been signed electronically. Note Initiated On: 01/10/2019 3:07 PM Number of Addenda: 0 I attest to the content of the Intraoperative Record and orders documented therein, exceptions below {[id number]}
[2019-01-11] MEDS: SODIUM CHLORIDE 0.9% 1000ML 1,000 ML IV SCH (05:50)
[2019-01-11 05:59] LABS: Hematocrit (blood only) 35.2 % (42-52); Hemoglobin 11.7 g/dL (14.0-18.0); Mean Corpuscular Hgb Conc 33.2 g/dL (32-36); Mean Corpuscular Volume 90.7 fL (80-100); Mean Platelet Volume 9.8 fL (7.4-10.4); Platelet Count 302 K/uL (130-400); RDW Coefficient of Variation 12.2 % (11.5-14.5); RDW Standard Deviation 40.2 fL (36.4-46.3); Red Blood Count 3.88 M/uL (4.7-6.1); White Blood Count 19.04 K/uL (4.8-10.8)
[2019-01-11 06:22] LABS: Albumin Level 2.5 gm/dl (3.4-5.0); BUN Creatinine Ratio 21.4 (10-20); Calcium 8.7 mg/dl (8.5-10.1); Creatinine Clr Calc Pharmacy 92.9 ml/min; Est GFR (African American) 109.2; Est GFR (Non-African American) 94.3
[2019-01-11 06:25] LABS: Albumin Globulin Ratio 0.7 (0.9-2); Bilirubin,Total 0.3 mg/dl (0.2-1); Globulin 3.4 gm/dl (2.5-4.0); Total Protein 5.9 gm/dl (6.4-8.2)
--- NOTE | 2019-01-11 07:27 | Anesthesiology Progress Note ---
Date of Service January 11, 2019 Anesthesia Post Procedure Vital Signs Vital Signs: Temp Pulse Pulse Resp BP BP Pulse Ox 01/11/19 07:00 36.6 C 65 18 116/70 98 01/10/19 23:52 36.6 C 61 18 119/74 95 01/10/19 17:00 36.8 C 76 18 125/75 94 01/10/19 16:05 73 18 111/87 98 01/10/19 15:50 70 18 105/74 97 01/10/19 15:35 76 16 98/55 L 95 01/10/19 14:17 36.7 C 70 16 125/69 93 01/10/19 11:24 36.7 C 75 18 122/79 95 Notes Mental Status: alert / awake / arousable and participated in evaluation Patient Amnestic to Procedure: Yes Nausea / Vomiting: adequately controlled Pain: adequately controlled Airway Patency, RR, SpO2: stable & adequate BP & HR: stable & adequate Hydration State: stable & adequate Anesthetic Complications: no major complications apparent and Pt Satisfied with anesthetic care
[2019-01-11] MEDS: CHOLECALCIFEROL 1,000 UNITS TAB PO SCH (08:08)
[2019-01-11] MEDS: PANTOprazole 40 MG TAB PO SCH (08:08)
[2019-01-11] MEDS: ATORVASTATIN 40 MG TAB PO SCH (08:08)
[2019-01-11] MEDS: predniSONE 20 MG TAB PO SCH (08:09)
[2019-01-11] MEDS: TELMISARTAN 40 MG TAB PO SCH (08:10)
[2019-01-11] MEDS: CIPROFLOXACIN / D5W 200 MG/100 ML BAG IV SCH (08:10)
--- NOTE | 2019-01-11 10:19 | Gastroenterology Progress Note ---
Date of Service January 11, 2019 Assessment & Plan (1) Crohn's ileitis: -Patient can likely go home tomorrow if he remains stable -Upon discharge, will need an 8 week Prednisone taper, beginning at 40 mg daily and decreasing by 5 mg weekly x 8 weeks. -Keep outpatient appointment on 01/13 for further discussion about transition to Entyvio or Stelara. Humira will be discontinued. Patient is more interested in Stelara given the ease of injections as he travels often for work and struggled with infusions in the past when he was on Remicade. -Supportive care per primary team Thank you for allowing us to participate in the care of this patient. If you should have any further questions or concerns, do not hesitate to contact us. Present on Admission?: Yes Supervising Physician Co-Signing Physician Notes Agree with CHRISTOPHER Arcos as above Abd: Soft, NT, ND,+BS Decreased BM's approximately 6 over the past 24 hours Still passing blood though it has decreased Continue Prednisone therapy Will start Stelara in replacement of Humira Subjective Patient is a 58 yo male hospitalized with an exacerbation of his Crohn's Disease. He underwent a colonoscopy on 01/11/2019 that indicated severe ulceration of his terminal ileum. He reports his stools are forming up but he has noticed rectal bleeding. He reports 1 bowel movement every 3 hours. He understands that he will need to switch therapies for his long-term treatment. He is frustrated with his insurance company for the 10 week delay in receiving his Humira at the beginning of 2018. He denies further issues. He is up and out of bed, walking the hallways. Vitals are stable as are his labs. H/H at present is 11.7/35.2. WBC count 19.04, though he has been on steroid therapy. Review of Systems Constitutional: no fever and no chills Respiratory: no cough and no dyspnea Cardiovascular: no chest pain Gastrointestinal: + diarrhea/loose stools; no abdominal pain rectal bleeding Physical Exam Constitutional: WD/WN, vitals as above Respiratory: normal respiratory effort, lungs clear to auscultation Cardiovascular: RRR, no murmur, no edema Chest (Breasts): normal inspection/palpation of breasts Gastrointestinal (Abdomen): normal bowel sounds, soft, nontender, no hepatosplenomegaly Results & Data Vital Signs (Past 12 Hours) Vital Signs Temp Pulse Resp BP Pulse Ox 01/11/19 08:05 73 143/83 H 01/11/19 07:00 36.6 C 65 18 116/70 98 01/10/19 23:52 36.6 C 61 18 119/74 95
--- NOTE | 2019-01-11 12:43 | Hospitalist Progress Note ---
Date of Service January 11, 2019 Assessment & Plan (1) Crohn's disease: - Colonoscopy supports active crohn's flair which may have been induced due to break in Humira treatment due to insurance limitations - Continues with diarrhea but reducing in frequency; maybe some component of medications causing symptoms initially - reports symptoms largely started after Metformin initiation which commonly causes GI upset and reports worsening symptoms with Flagyl; Hgb is slightly reduced but partially could be dilution and will monitor and remains asymptomatic; C. diff negative - Will advance to low fiber/fat diet and monitor tolerance - Currently no pain and will monitor - Utilizes Humira weekly with last dose on 01/09; Started Prednisone 40 mg daily and planning on approx. 8 week taper with reduction by 5 mg weekly - GI following - discussed with Nani Portillo PA-C this AM - planning on out patient F/U on with Dr. Bird (2) DULCE MARIA (acute kidney injury): - Likely pre-renal in setting of GI losses - peaked at 1.44 and currently at baseline (baseline around 0.8) (3) HTN (hypertension): - Can resume Telmisartan and monitor renal function/BP - did have some lower readings on admission (systolic 90) but stable since (4) Hyponatremia: - Improving - likely from losses - asymptomatic and will continue to monitor labs (5) Type 2 diabetes mellitus: - Recently started on Metformin but ongoing GI symptoms - states he had this medication in the past and had GI issues - normally does improve once stabilized on it but may need to consider an alternative option - A1c is 7.1 - diet and exercise could essentially improve this as well - So far BSGs stable and will monitor (6) Obesity (BMI 30.0-34.9): - Diet and exercise to be encouraged - BMI of 32.8 (7) DVT prophylaxis: SCDs Disposition: Pending improvement with diarrheal condition; possibly home tomorrow Subjective Reports that he is doing a bit better today. Having liquid stool about every 3 hours but they are beginning to have some formed stool. Tolerating a clear liquid diet and will advance him today. Hgb slightly reduced from admission but asymptomatic and no indication for transfusion and will monitor. Verbalizes no new complaints today. Is ambulating the halls. Review of Systems Constitutional: no fever and no chills Ear, Nose, Mouth, Throat: no sore throat and no hoarseness Respiratory: no cough and no dyspnea Cardiovascular: no chest pain, no palpitations, no lightheadedness and no edema Gastrointestinal: + diarrhea/loose stools and + blood in stools; no abdominal pain, no nausea, no vomiting and no constipation Genitourinary: no dysuria Integumentary: no rash Physical Exam Constitutional: WD/WN, vitals as above Eyes: + anicteric sclerae ENMT: Ears: no hearing impairment Neck: trachea midline Respiratory: normal respiratory effort, lungs clear to auscultation Cardiovascular: RRR, no murmur, no edema Gastrointestinal (Abdomen): Inspection/Auscultation: + abdomen distended and normal bowel sounds Percussion/Palpation: abdomen nontender Musculoskeletal: Head/Neck/Chest: normocephalic and head atraumatic Skin: no rashes, warm and dry Neurologic: moves all extremities Psychiatric: A+Ox3, euthymic affect Results & Data Vital Signs (Past 12 Hours) Vital Signs Temp Pulse Resp BP Pulse Ox 01/11/19 08:05 73 143/83 H 01/11/19 07:00 36.6 C 65 18 116/70 98 PG Care Time/CCT Total # of Minutes Spent Total Time Spent with Patient: Total time spent is greater than 50% in coordination of care (as documented) at patient's floor/unit and/or counseling patient: (1) Crohn's disease Digestive disease complication type: with rectal bleeding Gastrointestinal tract location: unspecified location Qualified Code(s): K50.911 - Crohn's disease, unspecified, with rectal bleeding
[2019-01-12 05:42] LABS: Hematocrit (blood only) 34.1 % (42-52); Hemoglobin 11.6 g/dL (14.0-18.0); Mean Corpuscular Volume 90.5 fL (80-100); Mean Platelet Volume 9.7 fL (7.4-10.4); Platelet Count 305 K/uL (130-400); RDW Standard Deviation 39.8 fL (36.4-46.3); Red Blood Count 3.77 M/uL (4.7-6.1); White Blood Count 16.57 K/uL (4.8-10.8)
[2019-01-12 06:09] LABS: Albumin Level 2.7 gm/dl (3.4-5.0); BUN Creatinine Ratio 19.6 (10-20); Calcium 8.4 mg/dl (8.5-10.1); Creatinine Clr Calc Pharmacy 76.5 ml/min; Est GFR (African American) 87.2; Est GFR (Non-African American) 75.3; Potassium 4.1 mmol/L (3.5-5.1)
[2019-01-12 06:12] LABS: Albumin Globulin Ratio 0.8 (0.9-2); Bilirubin,Total 0.2 mg/dl (0.2-1); Globulin 3.5 gm/dl (2.5-4.0); Total Protein 6.2 gm/dl (6.4-8.2)
[2019-01-12] MEDS: ATORVASTATIN 40 MG TAB PO SCH (07:57)
[2019-01-12] MEDS: PANTOprazole 40 MG TAB PO SCH (07:57)
[2019-01-12] MEDS: CHOLECALCIFEROL 1,000 UNITS TAB PO SCH (07:57)
[2019-01-12] MEDS: TELMISARTAN 40 MG TAB PO SCH (07:57)
[2019-01-12] MEDS: predniSONE 20 MG TAB PO SCH (07:57)
--- NOTE | 2019-01-12 09:09 | Gastroenterology Progress Note ---
Date of Service January 12, 2019 Assessment & Plan (1) Crohn's ileitis: 1) Continue 8 week Prednisone taper upon discharge. Would begin at 40 mg daily and decrease by 5 mg per week x 8 weeks. Would recommend concurrent therapy with a calcium & vitamin D supplement due to bone health concerns while taking a long course of corticosteroid therapy. 2) Proceed with follow-up visit in our office tomorrow 01/13/19 at 9:30 AM to discuss transition of biologic therapy from [facility] to a different. Thank you for allowing us to participate in the care of this patient. If you should have any further questions or concerns, do not hesitate to contact us at [email or web address] [phone] or [phone]. Present on Admission?: Yes Supervising Physician Co-Signing Physician Notes Agree with CHRISTOPHER Arcos as above Abd: Soft, NT, ND Continue prednisone taper Will start Stelara as an outpatient Followup in our office as scheduled Subjective Patient is a 58 yo male hospitalized with an exacerbation of Crohn's Disease. He is improving. His stools are forming and decreasing in frequency. Rectal Bleeding has dramatically reduced. His H/H remained stable from yesterday at 11.6/34.1. He denies any new complaints. He is tolerating a diet well. He is currently on a Prednisone taper. Review of Systems Constitutional: no fever and no chills Respiratory: no cough and no dyspnea Cardiovascular: no chest pain Gastrointestinal: no abdominal pain and no bloating loose and formed stools, rectal bleeding reduced Musculoskeletal: no back pain Integumentary: no rash Results & Data Vital Signs (Past 12 Hours) Vital Signs Temp Pulse Resp BP Pulse Ox 01/12/19 07:20 36.4 C L 51 L 18 136/74 99 01/11/19 22:19 36.8 C 55 L 18 142/79 H 94
[2019-01-12] MEDS ORDERED: CALCIUM 600MG + VIT D 400 IU TAB PO SCH (09:15)
--- NOTE | 2019-01-12 16:16 | Discharge Summary ---
Date of Service January 12, 2019 Admission HPI Per Admitting Provider 58 yo male with crohn's colitis s/p colectomy with j pouch admitted now for diarrhea with aliyah of blood and leukocytosis. He followed with Dr. Bird's group- most recently saw Nani on Thursday after a recent ER visit one week ago. ER visit one week ago was for diarrhea- CT showed small bowel inflammation, dc'd home on cipro, flagyl which he took for 5 days, c diff was negative. He saw Nani on Thursday in follow-up, stopped Flagyl due to side effects, was to continue Cipro thru today. He was scheduled for an outpatient colon tomorrow with Dr. Bird and has his prep with him (SuPrep) Came to the er for more frequent loose stools, somewhat blood tinged. He is not willing to go home. Hemodynamically stabe in the ER. Labs sig for an elevated wbc count, mild dulce maria. When seen on the floor, he reports he is still having diarrhea - not really increased in frequency. No other complaints. Willing to do the prep - prep is in bags at his bedside. Principal Diagnosis Crohn's Disease Exacerbation Discharge Exam Constitutional WD/WN, vitals as above Eyes + anicteric sclerae ENMT Ears: no hearing impairment Neck trachea midline Respiratory normal respiratory effort, lungs clear to auscultation Cardiovascular RRR, no murmur, no edema Gastrointestinal (Abdomen) Inspection/Auscultation: + abdomen distended and normal bowel sounds Percussion/Palpation: abdomen soft; abdomen nontender Musculoskeletal Head/Neck/Chest: normocephalic and head atraumatic Skin no rashes, warm and dry Neurologic moves all extremities Psychiatric A+Ox3, euthymic affect Discharge Data Allergies Allergy/AdvReac Type Severity Reaction Status Date / Time aspirin Allergy Unknown "DOES NOT Verified 01/18/19 11:21 TAKE BECAUSE OF BLEEDING" banana Allergy Unknown itching Verified 01/18/19 11:21 metformin Allergy STOMACH Verified 01/18/19 11:21 CRAMPS AND DIARRHEA lisinopril AdvReac Mild dry Verified 01/18/19 11:21 scratchy throat with cough ramipril AdvReac Mild dry Verified 01/18/19 11:21 scratchy throat with cough Consultations 01/09/19 13:59 ED Decision to Admit Stat 01/09/19 15:43 Consult Case Management - Discharge Planning Routine Consult Gastroenterology Routine Procedures Performed Operation Date: 01/10/19 14:15 Actual Procedures p Colonoscopy Biopsy Cytology - Roly Bird, DO Hospital Course (1) Crohn's disease: - Colonoscopy supports active crohn's flair which may have been induced due to break in Humira treatment due to insurance limitations - Continues with diarrhea but reducing in frequency and beginning to have some formation to stool, bloody stool reducing and hemoglobin remaining stable; maybe some component of medications causing symptoms initially - reports symptoms largely started after Metformin initiation which commonly causes GI upset and reports worsening symptoms with Flagyl; C. diff negative - Tolerating a low fat/fiber diet - Currently no pain - Utilizes Humira weekly with last dose on 01/09; Started Prednisone 40 mg daily and planning on approx. 8 week taper with reduction by 5 mg weekly - GI followed -- planning on outpatient F/U on with Dr. Bird (2) DULCE MARIA (acute kidney injury): - Likely pre-renal in setting of GI losses - peaked at 1.44 and currently at baseline (baseline around 0.8) (3) HTN (hypertension): - Can resume Telmisartan (4) Hyponatremia: - Improving - likely from losses - asymptomatic (5) Type 2 diabetes mellitus: - Recently started on Metformin but ongoing GI symptoms - states he had this medication in the past and had GI issues - normally does improve once stabilized on it but may need to consider an alternative option - A1c is 7.1 - diet and exercise could essentially improve this as well - So far BSGs stable even on steroids - patient to discuss with PCP about alternatives to initiate when GI symptoms improve (6) Obesity (BMI 30.0-34.9): - Diet and exercise to be encouraged - BMI of 32.8 Total Time Total Time Spent Total Time Spent (In Minutes): Greater than 30 minutes Discharge Plan Discharge Items Patient Disposition: Home - Self-Care Reason For Visit: CHRONS FLARE,DULCE MARIA,HYPONATREMIA Discharge Diagnosis: Crohns Exacerbation Discharge Goals: Decrease discomfort, Improve function and Prevent disease Activity: Resume your previous activity Non-emergency contact: Primary Care Provider Call non-emergency contact if: you have any medication questions, your symptoms worsen and you have a fever Follow-up/Referrals: Emiliana Osborn PA-C [Primary Care Provider] - 01/18/19 11:00 am (follow up appointment wiht your primary care physician) Diet: Low Fiber Addtl Provider Instructions: Crohn's Disease: - You will need to continue a Prednisone taper to help calm the inflammation in your intestines -- Take Prednisone 40 mg x 3 more days starting tomorrow since you had a dose today. Then you will reduce by 5 mg each week -- 40 mg x 3 days, 35 mg x 7 days, 30 mg x 7 days, 25 mg x 7 days, 20 mg x 7 days, 15 mg x 7 days, 10 mg x 7 days, then 5 mg x 7 days - Recommend to follow a low fiber and low carb diet for a few weeks. - You have a follow-up with Dr. Bird tomorrow and they will discuss further medications and switching your Humira - You may continue to have some loose stool or even some blood in your stool. If this seems to get worse talk with your doctor Diabetes: - Recommend to talk with you doctor about possibly a different medication for your sugars that is less likely to cause blood sugar issues. For now would recommend to eat a carb consistent diet and since you will be on steroids this can cause a bump in your sugars. However, your sugars have been good here in the hospital. - But recommend to stay active and even a 5 lbs weight loss can make a difference with sugar control for those with type 2 diabetes. Prescriptions: New Caltrate 600-D Plus Minerals 600 mg calcium- 800 unit-50 mg Tablet 1 tab PO BID 30 Days Qty: 60 RF: 0 prednisone 10 mg tablet 10 mg PO UD Qty: 110 RF: 0 Continued atorvastatin [Lipitor] 40 mg Tablet 40 mg PO QAM RF: 0 pantoprazole [Protonix] 20 mg Tablet,Delayed Release (Dr/Ec) 40 mg PO QAM RF: 0 cholecalciferol (vitamin D3) [Vitamin D3] 1,000 unit Capsule 1,000 unit PO QAM RF: 0 telmisartan 20 mg Tablet 80 mg PO QAM RF: 0 Discontinued ciprofloxacin HCl [Cipro] 500 mg tablet 500 mg PO BID 10 Days Qty: 20 RF: 0 metformin 500 mg 500 mg PO QPM RF: 0 Stand-Alone Forms: [facility] Discharge Orders: Discharge Order (Routine); Ordered 01/12/19 Ordered By: Candice Rodriguez Admission Data Admit Date/Time: 01/09/19 14:44 Attending Provider: Raul Powell Admit Provider: Say Manuel Primary Care Provider: Emiliana Osborn Other Providers: Roly Bird Service: Medical Other Interventions: Discharge Summary Assessment (RN) Last Done: 01/12/19 11:03 DC Date/Time DO NOT enter until pt leaves facility: 01/12/19 14:47 Supervising Physician Co-Signing Physician Notes Attending note: patient seen and examined with Candice Rodriguez PA-C on day of discharge. I agree with her discharge summary. The patient was feeling much better, no diarrhea, no abdominal pain. Discussed plan for prolonged Prednisone taper, he voiced understanding. He already had appt with Dr. Bird the next day to discuss which biologic agent to use. Eating well, no vomiting. Ambulating around the halls. - Crohn's flare: improved greatly with Prednisone d/c on Prednisone 40mg with plan to taper every week by 5mg follow up closely with Dr. Bird low fiber diet C diff was negative
== END 2019-01-12 14:47 | disposition home or self-care (01) | DRG 386 ==
LOC: ED 11:23 → SUATTDRO 14:44 → 2N 14:44 → 4E 01-11 22:04
DX: E87.1 Hypo-osmolality and hyponatremia; N17.9 Acute kidney failure, unspecified; Z68.32 Body mass index [BMI] 32.0-32.9, adult; T39.4X6A Underdosing of antirheumatics, not elsewhere classified, initial encounter; Z66 Do not resuscitate; Z88.6 Allergy status to analgesic agent; Z59.8 Other problems related to housing and economic circumstances; Z90.49 Acquired absence of other specified parts of digestive tract; Z88.8 Allergy status to other drugs, medicaments and biological substances; K50.011 Crohn's disease of small intestine with rectal bleeding; Z91.018 Allergy to other foods; I10 Essential (primary) hypertension; Y63.6 Underdosing and nonadministration of necessary drug, medicament or biological substance; E11.9 Type 2 diabetes mellitus without complications; Z79.84 Long term (current) use of oral hypoglycemic drugs; E66.9 Obesity, unspecified; Z79.899 Other long term (current) drug therapy; D72.829 Elevated white blood cell count, unspecified; Z91.138 Patient's unintentional underdosing of medication regimen for other reason

== ENCOUNTER 2020-05-26 13:13 | Inpatient (IN) ==
[2020-05-26] MEDS ORDERED: SODIUM CHLORIDE 0.9% 1000ML 1,000 ML IV ONE (13:59)
[2020-05-26 14:07] LABS: Basophils # (auto) 0.02 K/uL (0-0.2); Basophils % (auto) 0.2 %; Eosinophils # (auto) 0.06 K/uL (0-0.5); Eosinophils % (auto) 0.5 %; Hemoglobin 14.3 g/dL (14.0-18.0); Immature Granulocytes # (auto) 0.04 K/uL (0.00-0.02); Immature Granulocytes % (auto) 0.3 %; Lymphocytes % (auto) 20.3 %; Mean Corpuscular Hemoglobin 31.4 pg (25-34); Mean Corpuscular Volume 92.1 fL (80-100); Mean Platelet Volume 10.5 fL (7.4-10.4); Monocytes % (auto) 11.8 %; Neutrophils # (auto) 7.93 K/uL (1.4-6.5); Neutrophils % (auto) 66.9 %; Platelet Count 266 K/uL (130-400); RDW Coefficient of Variation 12.5 % (11.5-14.5); RDW Standard Deviation 42.1 fL (36.4-46.3); Red Blood Count 4.56 M/uL (4.7-6.1); White Blood Count 11.85 K/uL (4.8-10.8)
--- NOTE | 2020-05-26 14:07 | Emergency Department Note ---
History of Present Illness General Chief complaint: Abdominal Pain Stated complaint: SHARP ABDOMINAL PAIN Time Seen by Provider: 05/26/20 13:21 History of Present Illness Maximum Pain Intensity: 6 This patient is a 60-year-old male who presents the emergency department complaining of left lower quadrant abdominal pain that has been sharp, stabbing and constant in nature for the last day. Movement seems to make the pain worse. He has not taken anything for pain. He denies any nausea. Last bowel movement was yesterday and reportedly normal. He denies any blood in his stool. No f ever. No urinary symptoms. The patient has a history of Crohn's disease. He had a partial colectomy performed at [facility] in 2002. Home Medications Home Medications Medication Instructions Recorded Confirmed Type pantoprazole 20 mg tablet,delayed 40 mg PO QAM #90 tab 06/22/19 05/26/20 Rx release diclofenac sodium 1 % topical gel 2 gm TOP QID gm 07/01/19 05/26/20 History cholecalciferol (vitamin D3) 25 2,000 unit PO QAM cap 03/23/20 05/26/20 History mcg (1,000 unit) capsule rosuvastatin 20 mg PO QAM 05/26/20 05/26/20 History telmisartan 80 mg PO QAM 05/26/20 05/26/20 History ustekinumab [Stelara] 90 mg SUBCUT Q8WK 05/26/20 05/26/20 History Allergies Allergy/AdvReac Type Severity Reaction Status Date / Time aspirin Allergy Unknown "DOES NOT Verified 05/26/20 14:37 TAKE BECAUSE OF BLEEDING" banana Allergy Unknown itching Verified 05/26/20 14:37 metformin Allergy STOMACH Verified 05/26/20 14:37 CRAMPS AND DIARRHEA lisinopril AdvReac Mild dry Verified 05/26/20 14:37 scratchy throat with cough ramipril AdvReac Mild dry Verified 05/26/20 14:37 scratchy throat with cough Past Med/Surg History Medical History Anemia Crohns disease Diabetes mellitus Dupuytren's contracture Dyslipidemia GERD (gastroesophageal reflux disease) History of renal stone Hx of Guillain-[place] syndrome RESIDUAL EFFECT BALANCE ISSUES AND CANNOT STAND STILL Hypertension Left-sided tinnitus Sensorineural hearing loss (SNHL) of left ear with restricted hearing of right ear Small bowel obstruction Syncope and collapse Type 2 diabetes mellitus Ulnar nerve neuropathy Vitamin D deficiency Surgical History H/O resection of large bowel Hx of abdominal surgery X3 - CURRENTLY HAS "J POUCH" Hx of appendectomy Hx of tonsillectomy Family History Other No family history of adverse response to anesthesia No family history of bleeding disorder No significant family history Denies family history of Breast cancer Social History Smoking Status: Never smoker Second Hand Exposure: No; Hx Alcohol Use: No Hx Substance Use: No Preferred Language: German Communication Ability: Effective Visual Impairment: Limited 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 Beliefs That Will Affect Care: None marital status: Single Current Living Situation: Alone current occupational status: employed Feels Safe at Home: Yes Childhood Exposure to Second-Hand Smoke: Yes caffeine: Yes Dental Care, Regularly: No Physical Activity Frequency: Daily Physical Activity Frequency Comment: WORK Seatbelt Use: always Sunscreen Use: No Assistive Devices: None Review of Systems A total of 10 systems reviewed and were otherwise negative Physical Exam Vital Signs Vital Signs - 24 hr 05/26/20 13:17 05/26/20 14:32 05/26/20 15:41 Temperature 37.2 C Temperature Source Oral Pulse Rate 91 H Pulse Rate [Left Finger] 78 73 Respiratory Rate 20 18 18 Blood Pressure 172/104 H Blood Pressure [Left Arm] 172/102 H 163/98 H Blood Pressure Mean 126 Blood Pressure Mean [Left Arm] 125 119 Blood Pressure Position Sitting Pulse Oximetry 95 96 97 Oxygen Delivery Method Room Air Room Air Sepsis Recent Fever Within 48 Hours No Sepsis New/Unexplained Change in Mental Status No Sepsis Action Taken by Nursing No Action Required 05/26/20 16:36 05/26/20 18:30 Temperature Temperature Source Pulse Rate Pulse Rate [Left Finger] 74 75 Respiratory Rate 18 18 Blood Pressure Blood Pressure [Left Arm] 141/88 H 150/84 H Blood Pressure Mean Blood Pressure Mean [Left Arm] 105 106 Blood Pressure Position Pulse Oximetry 95 95 Oxygen Delivery Method Room Air Room Air Sepsis Recent Fever Within 48 Hours Sepsis New/Unexplained Change in Mental Status Sepsis Action Taken by Nursing Constitutional WD/WN, vitals as above Eyes EOM intact bilaterally ENMT external ear and nose normal, oropharynx normal Neck trachea midline Respiratory normal respiratory effort, lungs clear to auscultation Cardiovascular RRR, no murmur, no edema Gastrointestinal (Abdomen) Tenderness to palpation noted in the left lower quadrant. No guarding or rebound tenderness. Bowel sounds present in all 4 quadrants Musculoskeletal no cyanosis or clubbing, extremities motor strength 5/5 Skin no rashes, warm and dry Neurologic Alert and oriented x3. No focal motor deficits. Psychiatric Acting appropriately Course Course Patient was seen and examined Vital signs including blood pressure were reviewed medications list was verified with patient Labs were obtained, and a saline lock was established The patient declined pain medications. He was ordered fluids and imaging. The case was discussed with my supervising physician His imaging was performed and reviewed The case was discussed with the hospitalist in addition to surgery. Surgery evaluated the patient. He did have a significant episode of emesis. I do not comfortable sending the patient home. He will be evaluated by Hospitalist service likely patient management. Consultations Consultation #1: Dr. Garcia Consultation #3: Dr. Mac Administered Medications Heparin Sodium (Porcine) (Heparin Sod 5,000 Unit/0.5 Ml Vial) 5,000 units SQ Q12 JACOB Stop: 06/25/20 20:59 Last Admin: 05/26/20 21:58 Dose: 5,000 units Documented by: [id number] Sodium Chloride (Nss 1000ml) 1,000 mls @ 80 mls/hr IV .[id number] JACOB Stop: 06/25/20 20:59 Last Admin: 05/26/20 21:57 Dose: 80 mls/hr Documented by: [id number] Discontinued Medications Sodium Chloride (Nss 1000ml) 1,000 mls @ 999 mls/hr IV .[id number] ONE Stop: 05/26/20 14:59 Last Infusion: 05/26/20 15:40 Dose: 0 mls/hr Documented by: [id number] Admin: 05/26/20 14:31 Dose: 999 mls/hr Documented by: [id number] Ioversol (Ioversol 100ml) 93 ml IV ONCE ONE Stop: 05/26/20 17:03 Last Admin: 05/26/20 17:05 Dose: 93 ml Documented by: [id number] Medical Decision Making Medical Records Attestation: I reviewed the patient's medical records. Home Medications Current Medication List: was personally reviewed by me Laboratory Data Attestation: I reviewed the patient's lab results. Result diagrams: 05/26/20 13:45 05/26/20 13:45 Lab Results 05/26/20 05/26/20 05/26/20 Range/Units 13:45 13:45 13:46 WBC 11.85 H (4.8-10.8) K/uL RBC 4.56 L (4.7-6.1) M/uL Hgb 14.3 (14.0-18.0) g/dL Hct 42.0 (42-52) % MCV 92.1 (80-100) fL MCH 31.4 (25-34) pg MCHC 34.0 (32-36) g/dL RDW Std Deviation 42.1 (36.4-46.3) fL RDW Coeff of Selina 12.5 (11.5-14.5) % Plt Count 266 (130-400) K/uL MPV 10.5 H (7.4-10.4) fL Immature Gran % (Auto) 0.3 % Neut % (Auto) 66.9 % Lymph % (Auto) 20.3 % [place] % (Auto) 11.8 % Eos % (Auto) 0.5 % Baso % (Auto) 0.2 % Neut # (Auto) 7.93 H (1.4-6.5) K/uL Lymph # (Auto) 2.40 (1.2-3.4) K/uL [place] # (Auto) 1.40 H (0.11-0.59) K/uL Eos # (Auto) 0.06 (0-0.5) K/uL Baso # (Auto) 0.02 (0-0.2) K/uL Immature Gran # (Auto) 0.04 H (0.00-0.02) K/uL Sodium 141 (136-145) mmol/L Potassium 3.8 (3.5-5.1) mmol/L Chloride 108 H (98-107) mmol/L Carbon Dioxide 27 (21-32) mmol/L Anion Gap 6.0 (3-11) BUN 11 (7-18) mg/dl Creatinine 0.85 (0.6-1.4) mg/dl Est Cr Clr Drug Dosing 96.3 ml/min Est GFR ( Amer) 109.8 Est GFR (Non-Af Amer) 94.7 BUN/Creatinine Ratio 13.5 (10-20) Glucose 132 H (70-99) mg/dl Calcium 8.9 (8.5-10.1) mg/dl Total Bilirubin 0.8 (0.2-1) mg/dl AST 24 (15-37) U/L ALT 46 (12-78) U/L Alkaline Phosphatase 67 (45-117) U/L Total Protein 7.6 (6.4-8.2) gm/dl Albumin 3.6 (3.4-5.0) gm/dl Globulin 4.0 (2.5-4.0) gm/dl Albumin/Globulin Ratio 0.9 (0.9-2) Lipase 127 (73-393) U/L Urine Color Yellow Urine Appearance Clear (Clear) Urine pH 6.0 (4.5-7.5) Ur Specific [place] 1.010 (1.000-1.030) Urine Protein Negative (Negative) Urine Glucose (UA) Negative (Negative) Urine Ketones Negative (Negative) Urine Blood Negative (Negative) Urine Nitrite Negative (Negative) Urine Bilirubin Negative (Negative) Urine Urobilinogen Negative (Negative) Ur Leukocyte Esterase Negative (Negative) Imaging Data Attestation: I personally reviewed and interpreted this imaging study as follows: Radiologist's Impression: CT abdomen pelvis with IV and oral contrast IMPRESSION: 1. Postsurgical changes of a proctocolectomy with ileal pouch anal anastomosis 2. Small bowel obstruction with a central pelvic transition zone. 3. Mild mesenteric edema and interloop fluid associated with the bowel obstruction. No pneumatosis. No portal venous gas. 4. Cholelithiasis 5. Hepatic steatosis ACT 112: Negative or not required by law. Electronically signed by: Jacek Merritt M.D. 05/26/2020 5:28 PM Dictated: 05/26/201721 Transcribed: 05/26/201721 [facility] Narrative Differential diagnosis: Crohn's flare, bowel obstruction, diverticulitis, ureteral stone, infectious etiology, among others This patient is a 60-year-old male who presents emergency department with left lower quadrant abdominal pain. He has a history of Crohn's. On exam, he was afebrile and nontoxic in appearance.. Vital signs were stable. He was tender in the left lower quadrant. Work-up was performed. Given his history, I was concerned of possible bowel obstruction versus Crohn's flare versus diverticulitis. Labs reveal mild leukocytosis. CT was performed consistent with a small bowel obstruction. He did have a episode of emesis in the emergency department. The case was discussed with my supervising physician. He suggested consulting with surgery in addition to the hospitalist. The patient was evaluated by surgery in the emergency department. Conservative measures at this point are recommended. An NG tube was performed. He will be evaluated by the hospitalist service for likely inpatient management. The patient was comfortable with this plan remained stable in the emergency department. Impression & Plan Small bowel obstruction Discharge Plan Visit Data Chief Complaint: Abdominal Pain Stated Complaint: SHARP ABDOMINAL PAIN ED Provider: Sagar Taylor ED Midlevel Provider: Leonor Hedrick Discharge Problem: Small bowel obstruction Patient Disposition: Admitted As Inpatient Discharge Instructions Interventions: ED Discharge Assessment Last Done: 05/26/20 20:58
[2020-05-26 14:15] LABS: Albumin Level 3.6 gm/dl (3.4-5.0); BUN Creatinine Ratio 13.5 (10-20); Calcium 8.9 mg/dl (8.5-10.1); Creatinine Clr Calc Pharmacy 96.3 ml/min; Est GFR (African American) 109.8; Est GFR (Non-African American) 94.7; Potassium 3.8 mmol/L (3.5-5.1)
[2020-05-26 14:18] LABS: Albumin Globulin Ratio 0.9 (0.9-2); Bilirubin,Total 0.8 mg/dl (0.2-1); Total Protein 7.6 gm/dl (6.4-8.2)
[2020-05-26 14:19] LABS: Appearance Urine Clear (Clear); Bilirubin Urine Negative (Negative); Blood Urine Negative (Negative); Color Urine Yellow; Glucose Urine UA Negative (Negative); Ketones Urine Negative (Negative); Leukocyte Esterase Urine Negative (Negative); Nitrite Urine Negative (Negative); Protein Urine Negative (Negative); Urobilinogen Urine Negative (Negative)
[2020-05-26] MEDS ORDERED: IOVERSOL 100ml IV ONE (17:02)
--- NOTE | 2020-05-26 17:29 | CT Scan Report ---
CT abd pelvis oral and IV con CLINICAL HISTORY: LLQ pain hx Crohn's disease COMPARISON STUDY: 01/05/2019 TECHNIQUE: Patient was scanned in a dynamic helical fashion during intravenous administration of 93 c c of Optiray 320 A dose lowering technique was utilized adhering to the principles of ALARA. CT DOSE: 930.85 mGy.cm FINDINGS: Lower chest: There is a 7 mm solid left lower lobe pulmonary nodule, unchanged from the prior study. Liver: There is hepatic steatosis. No focal masses are visualized. Gallbladder: Cholelithiasis. No gallbladder wall thickening. Spleen: Normal in size and attenuation. Pancreas: Unremarkable. Adrenal glands: Unremarkable. Kidneys: There is symmetric renal cortical enhancement. The kidneys are normal in size without hydron ephrosis. Bowel: There are postsurgical changes of a proctocolectomy with ileal pouch anal anastomosis. There a re dilated small bowel loops with multiple air-fluid levels. The distal most small bowel is of normal caliber. The findings are indicative of a small bowel obstruction. There is a small amount of interl oop mesenteric fluid. Peritoneum: There is no free air. There is a tiny fat-containing umbilical hernia. Vasculature: The abdominal aorta is normal in course and caliber. Adenopathy: None. Pelvic viscera: The bladder, and pelvic viscera are unremarkable. Skeletal structures: No destructive osseous lesions are seen. IMPRESSION: 1. Postsurgical changes of a proctocolectomy with ileal pouch anal anastomosis 2. Small bowel obstruction with a central pelvic transition zone. 3. Mild mesenteric edema and interloop fluid associated with the bowel obstruction. No pneumatosis. N o portal venous gas. 4. Cholelithiasis 5. Hepatic steatosis ACT 112: Negative or not required by law. Electronically signed by: Jacek Merritt M.D. 05/26/2020 5:28 PM
--- NOTE | 2020-05-26 19:03 | Surgery Consultation ---
Date of Consultation May 26, 2020 Assessment & Plan (1) Small bowel obstruction: 60-year-old male with history of Crohn's disease and multiple abdominal surgeries including J-pouch, now with apparent small bowel obstruction versus Crohn's flare. No surgical intervention at this time Admission to medicine, discussed case with GI Hold off on NG tube for now, will place if failure to improve or continued vomiting Given his surgical history and Crohn's disease, if he needed surgical inte rvention we would recommend transfer to a tertiary center Surgery will continue to follow while in house (2) Crohns disease: (3) Hx of abdominal surgery: (4) Obesity (BMI 30.0-34.9): (5) HTN (hypertension): (6) Dyslipidemia: (7) Type 2 diabetes mellitus: (8) GERD (gastroesophageal reflux disease): History of Present Illness History of Present Illness 60-year-old male with history of Crohn's disease including ex lap for lysis of adhesions for small bowel obstruction back in 1972 as well as a colectomy with J-pouch at [place] in the . He started having abdominal pain at 330 yesterday afternoon that progressively got worse. He felt like he wanted to vomit but did not. He came to the emergency department and only vomited after trying to drink the oral contrast for the CT scan. His last bowel movement was yesterday and was loose. He normally has 4-5 bowel movements per day. He was in some distress as they attempted to place an NG tube which caused him to gag severely. Otherwise not in any distress at this time. Allergies Allergy/AdvReac Type Severity Reaction Status Date / Time aspirin Allergy Unknown "DOES NOT Verified 05/26/20 14:37 TAKE BECAUSE OF BLEEDING" banana Allergy Unknown itching Verified 05/26/20 14:37 metformin Allergy STOMACH Verified 05/26/20 14:37 CRAMPS AND DIARRHEA lisinopril AdvReac Mild dry Verified 05/26/20 14:37 scratchy throat with cough ramipril AdvReac Mild dry Verified 05/26/20 14:37 scratchy throat with cough Home Medications Home Medications Medication Instructions Recorded Confirmed Type pantoprazole 20 mg tablet,delayed 40 mg PO QAM #90 tab 06/22/19 05/26/20 Rx release diclofenac sodium 1 % topical gel 2 gm TOP QID gm 07/01/19 05/26/20 History cholecalciferol (vitamin D3) 25 2,000 unit PO QAM cap 03/23/20 05/26/20 History mcg (1,000 unit) capsule rosuvastatin 20 mg PO QAM 05/26/20 05/26/20 History telmisartan 80 mg PO QAM 05/26/20 05/26/20 History ustekinumab [Stelara] 90 mg SUBCUT Q8WK 05/26/20 05/26/20 History Patient History Medical History (Updated 05/26/20 @ 19:07 by Harjinder Garcia DO, FACS) Anemia Crohns disease Diabetes mellitus Dupuytren's contracture Dyslipidemia GERD (gastroesophageal reflux disease) History of renal stone Hx of Guillain-[place] syndrome RESIDUAL EFFECT BALANCE ISSUES AND CANNOT STAND STILL Hypertension Left-sided tinnitus Sensorineural hearing loss (SNHL) of left ear with restricted hearing of right ear Small bowel obstruction Syncope and collapse Type 2 diabetes mellitus Ulnar nerve neuropathy Vitamin D deficiency Surgical History (Updated 05/26/20 @ 19:07 by Harjinder Garcia DO, FACS) H/O resection of large bowel Hx of abdominal surgery X3 - CURRENTLY HAS "J POUCH" Hx of appendectomy Hx of tonsillectomy Family History Other No family history of adverse response to anesthesia No family history of bleeding disorder No significant family history Denies family history of Breast cancer Social History Smoking Status: Never smoker Second Hand Exposure: No; Hx Alcohol Use: No Hx Substance Use: No Preferred Language: Spanish Communication Ability: Effective Visual Impairment: Limited Hearing Ability: Normal 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 Beliefs That Will Affect Care: None marital status: Single Current Living Situation: Alone current occupational status: employed Feels Safe at Home: Yes Childhood Exposure to Second-Hand Smoke: Yes caffeine: Yes Dental Care, Regularly: No Physical Activity Frequency: Daily Physical Activity Frequency Comment: WORK Seatbelt Use: always Sunscreen Use: No Assistive Devices: Glasses Review of Systems Review of Systems: All systems reviewed & are unremarkable except as noted in HPI & below Physical Exam Constitutional: WD/WN, vitals as above + obese Eyes: PERRL, conjunctivae normal, anicteric sclerae ENMT: external ear and nose normal, oropharynx normal Neck: trachea midline, no thyromegaly Respiratory: normal respiratory effort, lungs clear to auscultation Cardiovascular: RRR, no murmur, no edema Gastrointestinal (Abdomen): Inspection/Auscultation: + abdomen distended and + abdominal surgical scar Percussion/Palpation: + abdomen tender (Minimal tenderness to palpation) and abdomen soft; no guarding, abdomen not rigid and no hernia Musculoskeletal: no cyanosis or clubbing, extremities motor strength 5/5 Skin: no rashes, warm and dry Neurologic: PERRL, EOMI, accommodation nl, no face palsy, no dysarthria Psychiatric: A+Ox3, euthymic affect Lymphatic: no cervical or axillary lymphadenopathy Results & Data ([facility]) Vital Signs (Past 12 Hours) Vital Signs Temp Pulse Pulse Resp BP BP Pulse Ox 05/26/20 18:30 75 18 150/84 H 95 05/26/20 16:36 74 18 141/88 H 95 05/26/20 15:41 73 18 163/98 H 97 05/26/20 14:32 78 18 172/102 H 96 05/26/20 13:17 37.2 C 91 H 20 172/104 H 95 Laboratory Results Laboratory Results - last 24 hr 05/26/20 05/26/20 05/26/20 13:45 13:45 13:46 WBC 11.85 H RBC 4.56 L Hgb 14.3 Hct 42.0 MCV 92.1 MCH 31.4 MCHC 34.0 RDW Std Deviation 42.1 RDW Coeff of Selina 12.5 Plt Count 266 MPV 10.5 H Immature Gran % (Auto) 0.3 Neut % (Auto) 66.9 Lymph % (Auto) 20.3 [place] % (Auto) 11.8 Eos % (Auto) 0.5 Baso % (Auto) 0.2 Neut # (Auto) 7.93 H Lymph # (Auto) 2.40 [place] # (Auto) 1.40 H Eos # (Auto) 0.06 Baso # (Auto) 0.02 Immature Gran # (Auto) 0.04 H Sodium 141 Potassium 3.8 Chloride 108 H Carbon Dioxide 27 Anion Gap 6.0 BUN 11 Creatinine 0.85 Est Cr Clr Drug Dosing 96.3 Est GFR ( Amer) 109.8 Est GFR (Non-Af Amer) 94.7 BUN/Creatinine Ratio 13.5 Glucose 132 H Calcium 8.9 Total Bilirubin 0.8 AST 24 ALT 46 Alkaline Phosphatase 67 Total Protein 7.6 Albumin 3.6 Globulin 4.0 Albumin/Globulin Ratio 0.9 Lipase 127 Urine Color Yellow Urine Appearance Clear Urine pH 6.0 Ur Specific Hope 1.010 Urine Protein Negative Urine Glucose (UA) Negative Urine Ketones Negative Urine Blood Negative Urine Nitrite Negative Urine Bilirubin Negative Urine Urobilinogen Negative Ur Leukocyte Esterase Negative Diagnostic Findings CT abd pelvis oral and IV con CLINICAL HISTORY: LLQ pain hx Crohn's disease COMPARISON STUDY: 01/05/2019 TECHNIQUE: Patient was scanned in a dynamic helical fashion during intravenous administration of 93 cc of Optiray 320 A dose lowering technique was utilized adhering to the principles of ALARA. CT DOSE: 930.85 mGy.cm FINDINGS: Lower chest: There is a 7 mm solid left lower lobe pulmonary nodule, unchanged from the prior study. Liver: There is hepatic steatosis. No focal masses are visualized. Gallbladder: Cholelithiasis. No gallbladder wall thickening. Spleen: Normal in size and attenuation. Pancreas: Unremarkable. Adrenal glands: Unremarkable. Kidneys: There is symmetric renal cortical enhancement. The kidneys are normal in size without hydronephrosis. Bowel: There are postsurgical changes of a proctocolectomy with ileal pouch anal anastomosis. There are dilated small bowel loops with multiple air-fluid levels. The distal most small bowel is of normal caliber. The findings are indicative of a small bowel obstruction. There is a small amount of interloop mesenteric fluid. Peritoneum: There is no free air. There is a tiny fat-containing umbilical hernia. Vasculature: The abdominal aorta is normal in course and caliber. Adenopathy: None. Pelvic viscera: The bladder, and pelvic viscera are unremarkable. Skeletal structures: No destructive osseous lesions are seen. IMPRESSION: 1. Postsurgical changes of a proctocolectomy with ileal pouch anal anastomosis 2. Small bowel obstruction with a central pelvic transition zone. 3. Mild mesenteric edema and interloop fluid associated with the bowel obstruction. No pneumatosis. No portal venous gas. 4. Cholelithiasis 5. Hepatic steatosis PG Care Time/CCT Total # of Minutes Spent Total Time Spent with Patient: Total time spent is greater than 50% in coordination of care (as documented) at patient's floor/unit and/or counseling patient: Coding Level of Care Code 93258 Inpt Consult Level 3 Diagnoses Small bowel obstruction K56.609 Crohns disease K50.90 Hx of abdominal surgery Z98.890 Obesity (BMI 30.0-34.9) E66.9 HTN (hypertension) I10 Dyslipidemia E78.5 Type 2 diabetes mellitus E11.9 GERD (gastroesophageal reflux disease) K21.9
--- NOTE | 2020-05-26 19:24 | History & Physical Report ---
Date of Service May 26, 2020 Assessment & Plan (1) Small bowel obstruction: Seen on CT a/p on admission. Patient was seen in conjunction with general surgery team. - Couldn't tolerate NG tube in the ER; GS was ok waiting 24 hours to see how the patient does without one. - Strict NPO - KUB in the AM - Pain control - Consult GI - No surgery presently needed. If he does need surgery, will need transfer to [place]. Patient preference to remain at [facility] for now and attempt conservative management. (2) Crohns disease: S/p multiple resections. CT a/p didn't indicate significant flare. - Holding steroids at this time. - GI consulted (3) Type 2 diabetes mellitus: A1c was 7.1% in 03/2020. - Not on home meds. - Sliding scale insulin (4) HTN (hypertension): BP is 150/85. - Hold home telmisartan - Hydralazine PRN (5) GERD (gastroesophageal reflux disease): - PPI IV while NPO (6) DVT prophylaxis: Heparin 5000 units Q12h History of Present Illness Primary Care Provider: Emiliana Osborn PA-C 60yo M w/ hx UC who presents with small bowel obstruction. His last BM was about noon yesterday. He usually has about 5 soft BMs per day. None since then. He had severe, periumbilical sharp pain without radiation along with acute onset nausea and emesis. He presented to the ED where he had some improvement with pain medication. NG tube was attempted, but he could not tolerate it. Allergies Allergy/AdvReac Type Severity Reaction Status Date / Time aspirin Allergy Unknown "DOES NOT Verified 05/26/20 14:37 TAKE BECAUSE OF BLEEDING" banana Allergy Unknown itching Verified 05/26/20 14:37 metformin Allergy STOMACH Verified 05/26/20 14:37 CRAMPS AND DIARRHEA lisinopril AdvReac Mild dry Verified 05/26/20 14:37 scratchy throat with cough ramipril AdvReac Mild dry Verified 05/26/20 14:37 scratchy throat with cough Home Medications Home Medications Medication Instructions Recorded Confirmed Type pantoprazole 20 mg tablet,delayed 40 mg PO QAM #90 tab 06/22/19 05/26/20 Rx release diclofenac sodium 1 % topical gel 2 gm TOP QID gm 07/01/19 05/26/20 History cholecalciferol (vitamin D3) 25 2,000 unit PO QAM cap 03/23/20 05/26/20 History mcg (1,000 unit) capsule rosuvastatin 20 mg PO QAM 05/26/20 05/26/20 History telmisartan 80 mg PO QAM 05/26/20 05/26/20 History ustekinumab [Stelara] 90 mg SUBCUT Q8WK 05/26/20 05/26/20 History Past Med/Surg History Medical History Anemia Crohns disease Diabetes mellitus Dupuytren's contracture Dyslipidemia GERD (gastroesophageal reflux disease) History of renal stone Hx of Guillain-[place] syndrome RESIDUAL EFFECT BALANCE ISSUES AND CANNOT STAND STILL Hypertension Left-sided tinnitus Sensorineural hearing loss (SNHL) of left ear with restricted hearing of right ear Small bowel obstruction Syncope and collapse Type 2 diabetes mellitus Ulnar nerve neuropathy Vitamin D deficiency Surgical History H/O resection of large bowel Hx of abdominal surgery X3 - CURRENTLY HAS "J POUCH" Hx of appendectomy Hx of tonsillectomy Family History Other No family history of adverse response to anesthesia No family history of bleeding disorder No significant family history Denies family history of Breast cancer Social History Smoking Status: Never smoker Second Hand Exposure: No; Hx Alcohol Use: No Hx Substance Use: No Preferred Language: Belarusian Communication Ability: Effective Visual Impairment: Limited Hearing Ability: Normal 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 Beliefs That Will Affect Care: None marital status: Single Current Living Situation: Alone current occupational status: employed Feels Safe at Home: Yes Childhood Exposure to Second-Hand Smoke: Yes caffeine: Yes Dental Care, Regularly: No Physical Activity Frequency: Daily Physical Activity Frequency Comment: WORK Seatbelt Use: always Sunscreen Use: No Assistive Devices: Glasses Review of Systems Review of Systems: All systems reviewed & are unremarkable except as noted in HPI & below Physical Exam Constitutional: WD/WN, vitals as above Eyes: EOM intact bilaterally; no conjunctival abnormality ENMT: external ear and nose normal, oropharynx normal Neck: trachea midline, no thyromegaly normal visual inspection Respiratory: normal respiratory effort, lungs clear to auscultation no respiratory distress Cardiovascular: RRR, no murmur, no edema Gastrointestinal (Abdomen): Inspection/Auscultation: + abdomen distended and + hypoactive bowel sounds Percussion/Palpation: + abdomen tender (Periumbilical) and abdomen soft; no guarding and abdomen not rigid Musculoskeletal: no cyanosis or clubbing, extremities motor strength 5/5 Skin: no rashes, warm and dry Neurologic: moves all extremities and awake Psychiatric: Orientation: alert, oriented to person and cooperative Results & Data Results & Data ([facility]) Vital Signs (Past 12 Hours) Vital Signs Temp Pulse Pulse Resp BP BP Pulse Ox 05/26/20 18:30 75 18 150/84 H 95 05/26/20 16:36 74 18 141/88 H 95 05/26/20 15:41 73 18 163/98 H 97 05/26/20 14:32 78 18 172/102 H 96 05/26/20 13:17 37.2 C 91 H 20 172/104 H 95 Code Status & VTE Plan VTE Prophylaxis Plan VTE Prophylaxis will be ordered: Yes PG Care Time/CCT Total # of Minutes Spent Total Time Spent with Patient: Total time spent is greater than 50% in coordination of care (as documented) at patient's floor/unit and/or counseling patient: Coding Level of Care Code 58710 Initial Inpt Care Lvl 3 Diagnoses Small bowel obstruction K56.609 Crohns disease K50.90 Type 2 diabetes mellitus E11.9 HTN (hypertension) I10 GERD (gastroesophageal reflux disease) K21.9 DVT prophylaxis Z29.9
[2020-05-26] MEDS ORDERED: ONDANSETRON INJ 2 MG/ML 2 ML VIAL IV PRN (21:00)
[2020-05-26] MEDS ORDERED: ACETAMINOPHEN 1,000 MG/100 ML VIAL IV PRN (21:00)
[2020-05-26] MEDS ORDERED: MoRPHine SULFATE 4 MG/ML 1 ML CARP\\VIAL IV PRN (21:00)
[2020-05-26] MEDS: SODIUM CHLORIDE 0.9% 1000ML 1,000 ML IV SCH (21:57)
[2020-05-26] MEDS: HEPARIN SOD 5,000 UNIT/0.5 ML VIAL SQ SCH (21:58)
[2020-05-27 07:22] LABS: Hematocrit (blood only) 42.4 % (42-52); Hemoglobin 13.7 g/dL (14.0-18.0); Mean Corpuscular Hemoglobin 30.6 pg (25-34); Mean Corpuscular Hgb Conc 32.3 g/dL (32-36); Mean Corpuscular Volume 94.9 fL (80-100); Mean Platelet Volume 10.8 fL (7.4-10.4); Platelet Count 263 K/uL (130-400); RDW Coefficient of Variation 12.8 % (11.5-14.5); RDW Standard Deviation 43.8 fL (36.4-46.3); Red Blood Count 4.47 M/uL (4.7-6.1); White Blood Count 9.92 K/uL (4.8-10.8)
[2020-05-27 07:50] LABS: BUN Creatinine Ratio 19.8 (10-20); Calcium 8.8 mg/dl (8.5-10.1); Creatinine Clr Calc Pharmacy 100.9 ml/min; Est GFR (Non-African American) 96.6; Potassium 3.6 mmol/L (3.5-5.1)
--- NOTE | 2020-05-27 08:24 | Gastrointestinal Consultation ---
Date of Consultation May 27, 2020 Assessment & Plan (1) Small bowel obstruction: Patient admitted with signs and symptoms suggestive of a small bowel obstruction. This is likely related to his prior surgical history. Of note the distended bowel not seem to be near the prior ileorectal anastomosis based on the CT report. Recommendations Continue with conservative therapy to include IV hydration n.p.o. status Consider Daily KUB If symptoms worsen would recommend an NG tube decompression Coverage to resume with the patient's regular GI group on Thursday Please call with any questions or concerns (2) Crohn's disease: History of Present Illness Reason for Consultation: Abdominal pain Attending Physician: Andre Barreto MD History of Present Illness The patient is a 60-year-old male with a past medical history notable for inflammatory bowel disease who presented to the emergency room for evaluation of abdominal pain. He has a long history of Crohn's disease and underwent a subtotal colectomy with pouch formation many years ago. He was last seen by in December 2018 during admission where they thought he may have an underlying inflammatory bowel disease flare. At that time he was placed on to a short course of steroids. The patient is maintained as an outpatient on [facility]. This morning the patient notes that his abdominal pain is starting to improve significantly, he did pass a small amount of flatus but has yet to pass any stool. Allergies Allergy/AdvReac Type Severity Reaction Status Date / Time aspirin Allergy Unknown "DOES NOT Verified 05/26/20 14:37 TAKE BECAUSE OF BLEEDING" banana Allergy Unknown itching Verified 05/26/20 14:37 metformin Allergy STOMACH Verified 05/26/20 14:37 CRAMPS AND DIARRHEA lisinopril AdvReac Mild dry Verified 05/26/20 14:37 scratchy throat with cough ramipril AdvReac Mild dry Verified 05/26/20 14:37 scratchy throat with cough Home Medications Home Medications Medication Instructions Recorded Confirmed Type pantoprazole 20 mg tablet,delayed 40 mg PO QAM #90 tab 06/22/19 05/26/20 Rx release diclofenac sodium 1 % topical gel 2 gm TOP QID gm 07/01/19 05/26/20 History cholecalciferol (vitamin D3) 25 2,000 unit PO QAM cap 03/23/20 05/26/20 History mcg (1,000 unit) capsule rosuvastatin 20 mg PO QAM 05/26/20 05/26/20 History telmisartan 80 mg PO QAM 05/26/20 05/26/20 History ustekinumab [Stelara] 90 mg SUBCUT Q8WK 05/26/20 05/26/20 History Patient History Medical History Anemia Crohns disease Diabetes mellitus Dupuytren's contracture Dyslipidemia GERD (gastroesophageal reflux disease) History of renal stone Hx of Guillain-[place] syndrome RESIDUAL EFFECT BALANCE ISSUES AND CANNOT STAND STILL Hypertension Left-sided tinnitus Sensorineural hearing loss (SNHL) of left ear with restricted hearing of right ear Small bowel obstruction Syncope and collapse Type 2 diabetes mellitus Ulnar nerve neuropathy Vitamin D deficiency Surgical History H/O resection of large bowel Hx of abdominal surgery X3 - CURRENTLY HAS "J POUCH" Hx of appendectomy Hx of tonsillectomy Family History Other No family history of adverse response to anesthesia No family history of bleeding disorder No significant family history Denies family history of Breast cancer Social History Smoking Status: Never smoker Second Hand Exposure: No; Hx Alcohol Use: No Hx Substance Use: No Preferred Language: Latvian Communication Ability: Effective Visual Impairment: Limited Hearing Ability: Normal [employer] Required: No Beliefs That Will Affect Care: None marital status: Single Current Living Situation: Alone current occupational status: employed Feels Safe at Home: Yes Childhood Exposure to Second-Hand Smoke: Yes caffeine: Yes Dental Care, Regularly: No Physical Activity Frequency: Daily Physical Activity Frequency Comment: WORK Seatbelt Use: always Sunscreen Use: No Assistive Devices: None Review of Systems Constitutional: + malaise; no sweats and no weight loss Eyes: no diplopia Ear, Nose, Mouth, Throat: no tinnitus and no dizziness Respiratory: no change in sputum and no hemoptysis Cardiovascular: no chest pain with activity and no dyspnea at rest Gastrointestinal: + abdominal pain and + early satiety; no vomiting Genitourinary: no urinary frequency Musculoskeletal: no radicular pain Neurologic: no falls Psychiatric: no hopelessness Endocrine: no polydipsia Hematologic / Lymphatic: no coagulopathy Physical Exam Constitutional: well developed and well nourished; no acute distress Eyes: PERRL, conjunctivae normal, anicteric sclerae ENMT: external ear and nose normal, oropharynx normal Neck: trachea midline, no thyromegaly Respiratory: normal respiratory effort, lungs clear to auscultation Cardiovascular: Rate/Rhythm: regular rate Heart Sounds: no murmur Gastrointestinal (Abdomen): Inspection/Auscultation: + abdomen distended Percussion/Palpation: + abdomen tender; no guarding Skin: no rashes, warm and dry Results & Data ([facility]) Vital Signs (Past 12 Hours) Vital Signs Temp Pulse Resp BP Pulse Ox 05/27/20 08:04 36.9 C 73 16 132/80 95 05/26/20 23:50 36.9 C 88 14 133/84 93 05/26/20 21:00 37 C 83 16 148/97 H 95 05/26/20 20:47 82 17 152/99 H 94 Laboratory Results Laboratory Results - last 24 hr 05/26/20 05/26/20 05/26/20 13:45 13:45 13:46 WBC 11.85 H RBC 4.56 L Hgb 14.3 Hct 42.0 MCV 92.1 MCH 31.4 MCHC 34.0 RDW Std Deviation 42.1 RDW Coeff of Selina 12.5 Plt Count 266 MPV 10.5 H Immature Gran % (Auto) 0.3 Neut % (Auto) 66.9 Lymph % (Auto) 20.3 [place] % (Auto) 11.8 Eos % (Auto) 0.5 Baso % (Auto) 0.2 Neut # (Auto) 7.93 H Lymph # (Auto) 2.40 [place] # (Auto) 1.40 H Eos # (Auto) 0.06 Baso # (Auto) 0.02 Immature Gran # (Auto) 0.04 H Sodium 141 Potassium 3.8 Chloride 108 H Carbon Dioxide 27 Anion Gap 6.0 BUN 11 Creatinine 0.85 Est Cr Clr Drug Dosing 96.3 Est GFR ( Amer) 109.8 Est GFR (Non-Af Amer) 94.7 BUN/Creatinine Ratio 13.5 Glucose 132 H POC Glucose Calcium 8.9 Magnesium Total Bilirubin 0.8 AST 24 ALT 46 Alkaline Phosphatase 67 Total Protein 7.6 Albumin 3.6 Globulin 4.0 Albumin/Globulin Ratio 0.9 Lipase 127 Urine Color Yellow Urine Appearance Clear Urine pH 6.0 Ur Specific [place] 1.010 Urine Protein Negative Urine Glucose (UA) Negative Urine Ketones Negative Urine Blood Negative Urine Nitrite Negative Urine Bilirubin Negative Urine Urobilinogen Negative Ur Leukocyte Esterase Negative 05/27/20 05/27/20 05/27/20 00:10 06:16 06:49 WBC 9.92 RBC 4.47 L Hgb 13.7 L Hct 42.4 MCV 94.9 MCH 30.6 MCHC 32.3 RDW Std Deviation 43.8 RDW Coeff of Selina 12.8 Plt Count 263 MPV 10.8 H Immature Gran % (Auto) Neut % (Auto) Lymph % (Auto) [place] % (Auto) Eos % (Auto) Baso % (Auto) Neut # (Auto) Lymph # (Auto) [place] # (Auto) Eos # (Auto) Baso # (Auto) Immature Gran # (Auto) Sodium Potassium Chloride Carbon Dioxide Anion Gap BUN Creatinine Est Cr Clr Drug Dosing Est GFR ( Amer) Est GFR (Non-Af Amer) BUN/Creatinine Ratio Glucose POC Glucose 146 H 166 H Calcium Magnesium Total Bilirubin AST ALT Alkaline Phosphatase Total Protein Albumin Globulin Albumin/Globulin Ratio Lipase Urine Color Urine Appearance Urine pH Ur Specific [place] Urine Protein Urine Glucose (UA) Urine Ketones Urine Blood Urine Nitrite Urine Bilirubin Urine Urobilinogen Ur Leukocyte Esterase 05/27/20 06:49 WBC RBC Hgb Hct MCV MCH MCHC RDW Std Deviation RDW Coeff of Selina Plt Count MPV Immature Gran % (Auto) Neut % (Auto) Lymph % (Auto) [place] % (Auto) Eos % (Auto) Baso % (Auto) Neut # (Auto) Lymph # (Auto) [place] # (Auto) Eos # (Auto) Baso # (Auto) Immature Gran # (Auto) Sodium 142 Potassium 3.6 Chloride 108 H Carbon Dioxide 28 Anion Gap 6.0 BUN 16 Creatinine 0.81 Est Cr Clr Drug Dosing 100.9 Est GFR ( Amer) 112.0 Est GFR (Non-Af Amer) 96.6 BUN/Creatinine Ratio 19.8 Glucose 153 H POC Glucose Calcium 8.8 Magnesium 2.0 Total Bilirubin AST ALT Alkaline Phosphatase Total Protein Albumin Globulin Albumin/Globulin Ratio Lipase Urine Color Urine Appearance Urine pH Ur Specific [place] Urine Protein Urine Glucose (UA) Urine Ketones Urine Blood Urine Nitrite Urine Bilirubin Urine Urobilinogen Ur Leukocyte Esterase Diagnostic Findings CT abd pelvis oral and IV con CLINICAL HISTORY: LLQ pain hx Crohn's disease COMPARISON STUDY: 01/05/2019 TECHNIQUE: Patient was scanned in a dynamic helical fashion during intravenous administration of 93 cc of Optiray 320 A dose lowering technique was utilized adhering to the principles of ALARA. CT DOSE: 930.85 mGy.cm FINDINGS: Lower chest: There is a 7 mm solid left lower lobe pulmonary nodule, unchanged from the prior study. Liver: There is hepatic steatosis. No focal masses are visualized. Gallbladder: Cholelithiasis. No gallbladder wall thickening. Spleen: Normal in size and attenuation. Pancreas: Unremarkable. Adrenal glands: Unremarkable. Kidneys: There is symmetric renal cortical enhancement. The kidneys are normal in size without hydronephrosis. Bowel: There are postsurgical changes of a proctocolectomy with ileal pouch anal anastomosis. There are dilated small bowel loops with multiple air-fluid levels. The distal most small bowel is of normal caliber. The findings are indicative of a small bowel obstruction. There is a small amount of interloop mesenteric fluid. Peritoneum: There is no free air. There is a tiny fat-containing umbilical hernia. Vasculature: The abdominal aorta is normal in course and caliber. Adenopathy: None. Pelvic viscera: The bladder, and pelvic viscera are unremarkable. Skeletal structures: No destructive osseous lesions are seen. IMPRESSION: 1. Postsurgical changes of a proctocolectomy with ileal pouch anal anastomosis 2. Small bowel obstruction with a central pelvic transition zone. 3. Mild mesenteric edema and interloop fluid associated with the bowel obstruction. No pneumatosis. No portal venous gas. 4. Cholelithiasis 5. Hepatic steatosis
--- NOTE | 2020-05-27 09:07 | Hospitalist Progress Note ---
Date of Service May 27, 2020 Assessment & Plan (1) Small bowel obstruction: * Seen on CT a/p on admission. * Couldn't tolerate NG tube in the ER; GS was ok waiting 24 hours to see how the patient does without one. Continue to hold unless he would continue to vomit * Continue NPO * Pain control and antiemetics for nausea * Supportive care/electrolyte replacement -- currently LR @80cc/hr and will increase to 125cc/hr given low UOP recorded. Of note, patient without urinary symptoms at this time * GI and General Surgery on consult -- appreciate assistance. Patient usually follows with Dr. Bird locally * KUB in AM No surgery presently needed. If he does need surgery, will need transfer to [place]. Patient preference to remain at [facility] for now and attempt conservative management. (2) Crohns disease: * S/p multiple resections. CT a/p didn't indicate significant flare. * Holding steroids at this time. Next dose Stelara not due until end of the month. * Follows with Nani Portillo/Dr. Bird locally -- will be available tomorrow if needed * GI consulted as above (3) Type 2 diabetes mellitus: * A1c was 7.1% in 03/2020 however patient not on any medications as outpatient * Sliding scale insulin while inpatient and consider adding agent at discharge for control * BSGs have been acceptable, continue to monitor (4) HTN (hypertension): * BP currently stable at 132/80. Elevated on admission likely secondary to pain * Home telmisartan on hold as patient NPO * Will add hydralazine IV prn SBP >180 or DBP >100 * Continue to monitor (5) GERD (gastroesophageal reflux disease): * On protonix 40mg daily outpatient * Given patient, NPO will add protonix 40mg IV daily and resume home dose when taking PO again (6) DVT prophylaxis: * Heparin 5000 units Q12h Dispo: continue supportive treatment. KUB in AM. If patient worsens or needs surgical intervention would need transferred to [facility] facility ([place] pref given hx) Admission and Anticipated Discharge Date Admission Date: May 26, 2020 Subjective Patient evaluated this morning. Had previously been doing laps around the halls to help get bowels moving. On Stelara for hx Crohns and had multiple surgeries in past, most resent in [place]. Next dose of Stelara not due until end of the month, approx Jun 16. Unable to tolerate NGT in ER and would like to avoid if possible. He does note that he did have episode of emesis this morning, large and mostly watery. He states "I don't think there could be much left". DId have additional episode last evening but nothing since this morning. Lower abdominal pain significantly improved. No gas or BM yet but does feel something rumbling. Discussed we will repeat KUB in the AM and his usually GI provider Dr. Bird will be available. No fever, chills, chest pain, shortness of breath or dysuria at this time. Would not like anything for pain currently. Review of Systems Review of Systems: All systems reviewed & are unremarkable except as noted in HPI & below Physical Exam Constitutional: WD/WN, vitals as above + obese; no acute distress Eyes: + anicteric sclerae; no eyelid abnormality ENMT: mmm Neck: normal visual inspection and trachea midline Respiratory: normal respiratory effort, lungs clear to auscultation no res piratory distress Auscultation: no crackles and no wheezes Cardiovascular: RRR, no murmur, no edema Heart Sounds: no murmur Gastrointestinal (Abdomen): Inspection/Auscultation: + abdomen distended, + abdominal surgical scar and + hypoactive bowel sounds (although with increased BS RUQ/RLQ) Percussion/Palpation: abdomen soft; abdomen nontender ( improved from yesterday), no guarding, abdomen not rigid and no hernia Musculoskeletal: Head/Neck/Chest: normocephalic and head atraumatic moves all extremities Skin: warm, dry Neurologic: PERRL, EOMI, accommodation nl, no face palsy, no dysarthria moves all extremities and awake Psychiatric: Orientation: alert, oriented x 3 and cooperative Lymphatic: no cervical or axillary lymphadenopathy Results & Data Results & Data ([facility]) Vital Signs (Past 12 Hours) Vital Signs Temp Pulse Resp BP Pulse Ox 05/27/20 08:04 36.9 C 73 16 132/80 95 05/26/20 23:50 36.9 C 88 14 133/84 93 Laboratory Results 05/27/20 05/27/20 05/27/20 Range/Units 12:01 06:49 06:49 WBC 9.92 (4.8-10.8) K/uL RBC 4.47 L (4.7-6.1) M/uL Hgb 13.7 L (14.0-18.0) g/dL Hct 42.4 (42-52) % MCV 94.9 (80-100) fL MCH 30.6 (25-34) pg MCHC 32.3 (32-36) g/dL RDW Std Deviation 43.8 (36.4-46.3) fL RDW Coeff of Selina 12.8 (11.5-14.5) % Plt Count 263 (130-400) K/uL MPV 10.8 H (7.4-10.4) fL Sodium 142 (136-145) mmol/L Potassium 3.6 (3.5-5.1) mmol/L Chloride 108 H (98-107) mmol/L Carbon Dioxide 28 (21-32) mmol/L Anion Gap 6.0 (3-11) BUN 16 (7-18) mg/dl Creatinine 0.81 (0.6-1.4) mg/dl Est Cr Clr Drug Dosing 100.9 ml/min Est GFR ( Amer) 112.0 Est GFR (Non-Af Amer) 96.6 BUN/Creatinine Ratio 19.8 (10-20) Glucose 153 H (70-99) mg/dl POC Glucose 119 H (70-99) mg/dl Calcium 8.8 (8.5-10.1) mg/dl Magnesium 2.0 (1.8-2.4) mg/dl Total Bilirubin (0.2-1) mg/dl AST (15-37) U/L ALT (12-78) U/L Alkaline Phosphatase (45-117) U/L Total Protein (6.4-8.2) gm/dl Albumin (3.4-5.0) gm/dl Globulin (2.5-4.0) gm/dl Albumin/Globulin Ratio (0.9-2) Lipase (73-393) U/L Urine Color Urine Appearance (Clear) Urine pH (4.5-7.5) Ur Specific [place] (1.000-1.030) Urine Protein (Negative) Urine Glucose (UA) (Negative) Urine Ketones (Negative) Urine Blood (Negative) Urine Nitrite (Negative) Urine Bilirubin (Negative) Urine Urobilinogen (Negative) Ur Leukocyte Esterase (Negative) 05/27/20 05/27/20 05/26/20 Range/Units 06:16 00:10 13:46 WBC (4.8-10.8) K/uL RBC (4.7-6.1) M/uL Hgb (14.0-18.0) g/dL Hct (42-52) % MCV (80-100) fL MCH (25-34) pg MCHC (32-36) g/dL RDW Std Deviation (36.4-46.3) fL RDW Coeff of Selina (11.5-14.5) % Plt Count (130-400) K/uL MPV (7.4-10.4) fL Sodium (136-145) mmol/L Potassium (3.5-5.1) mmol/L Chloride (98-107) mmol/L Carbon Dioxide (21-32) mmol/L Anion Gap (3-11) BUN (7-18) mg/dl Creatinine (0.6-1.4) mg/dl Est Cr Clr Drug Dosing ml/min Est GFR ( Amer) Est GFR (Non-Af Amer) BUN/Creatinine Ratio (10-20) Glucose (70-99) mg/dl POC Glucose 166 H 146 H (70-99) mg/dl Calcium (8.5-10.1) mg/dl Magnesium (1.8-2.4) mg/dl Total Bilirubin (0.2-1) mg/dl AST (15-37) U/L ALT (12-78) U/L Alkaline Phosphatase (45-117) U/L Total Protein (6.4-8.2) gm/dl Albumin (3.4-5.0) gm/dl Globulin (2.5-4.0) gm/dl Albumin/Globulin Ratio (0.9-2) Lipase (73-393) U/L Urine Color Yellow Urine Appearance Clear (Clear) Urine pH 6.0 (4.5-7.5) Ur Specific [place] 1.010 (1.000-1.030) Urine Protein Negative (Negative) Urine Glucose (UA) Negative (Negative) Urine Ketones Negative (Negative) Urine Blood Negative (Negative) Urine Nitrite Negative (Negative) Urine Bilirubin Negative (Negative) Urine Urobilinogen Negative (Negative) Ur Leukocyte Esterase Negative (Negative) 05/26/20 Range/Units 13:45 WBC (4.8-10.8) K/uL RBC (4.7-6.1) M/uL Hgb (14.0-18.0) g/dL Hct (42-52) % MCV (80-100) fL MCH (25-34) pg MCHC (32-36) g/dL RDW Std Deviation (36.4-46.3) fL RDW Coeff of Selina (11.5-14.5) % Plt Count (130-400) K/uL MPV (7.4-10.4) fL Sodium 141 (136-145) mmol/L Potassium 3.8 (3.5-5.1) mmol/L Chloride 108 H (98-107) mmol/L Carbon Dioxide 27 (21-32) mmol/L Anion Gap 6.0 (3-11) BUN 11 (7-18) mg/dl Creatinine 0.85 (0.6-1.4) mg/dl Est Cr Clr Drug Dosing 96.3 ml/min Est GFR ( Amer) 109.8 Est GFR (Non-Af Amer) 94.7 BUN/Creatinine Ratio 13.5 (10-20) Glucose 132 H (70-99) mg/dl POC Glucose (70-99) mg/dl Calcium 8.9 (8.5-10.1) mg/dl Magnesium (1.8-2.4) mg/dl Total Bilirubin 0.8 (0.2-1) mg/dl AST 24 (15-37) U/L ALT 46 (12-78) U/L Alkaline Phosphatase 67 (45-117) U/L Total Protein 7.6 (6.4-8.2) gm/dl Albumin 3.6 (3.4-5.0) gm/dl Globulin 4.0 (2.5-4.0) gm/dl Albumin/Globulin Ratio 0.9 (0.9-2) Lipase 127 (73-393) U/L Urine Color Urine Appearance (Clear) Urine pH (4.5-7.5) Ur Specific [place] (1.000-1.030) Urine Protein (Negative) Urine Glucose (UA) (Negative) Urine Ketones (Negative) Urine Blood (Negative) Urine Nitrite (Negative) Urine Bilirubin (Negative) Urine Urobilinogen (Negative) Ur Leukocyte Esterase (Negative) PG Care Time/CCT Total # of Minutes Spent Total Time Spent with Patient: Total time spent is greater than 50% in coordination of care (as documented) at patient's floor/unit and/or counseling patient: Coding Level of Care Code 88266 Subseq Hosp Care Lvl 2 Diagnoses Small bowel obstruction K56.609 Crohns disease K50.90 Type 2 diabetes mellitus E11.9 HTN (hypertension) I10 GERD (gastroesophageal reflux disease) K21.9 DVT prophylaxis Z29.9
[2020-05-27] MEDS: SODIUM CHLORIDE 0.9% 1000ML 1,000 ML IV SCH ×2 (09:13→19:54)
[2020-05-27] MEDS: HEPARIN SOD 5,000 UNIT/0.5 ML VIAL SQ SCH ×2 (09:14→20:12)
--- NOTE | 2020-05-27 10:08 | Surgery Progress Note ---
Date of Service May 27, 2020 Assessment & Plan (1) Small bowel obstruction: 60-year-old male with history of Crohn's disease and J-pouch, admitted with small bowel obstruction. He did vomit multiple times overnight, but states he is feeling better this morning. Continue nonoperative management If continues to vomit then we would recommend NG tube KUB tomorrow If patient were to need surgical intervention, we would recommend transfer to a tertiary center given his Crohn's disease and history of multiple abdominal surgeries including J-pouch Surgery will follow (2) Crohn's disease: (3) Hx of abdominal surgery: (4) Type 2 diabetes mellitus: (5) Obesity (BMI 30.0-34.9): (6) HTN (hypertension): (7) Dyslipidemia: (8) GERD (gastroesophageal reflux disease): Admission and Anticipated Discharge Date Admission Date: May 26, 2020 Subjective 60-year-old male with history of Crohn's disease and multiple abdominal surgeries include J-pouch, admitted overnight with small bowel obstruction. He is feeling better this morning with less pain and bloating. However he did vomit multiple times overnight. They failed to place an NG tube in the emergency department last night due to patient intolerance to procedure. He has been ambulating. Physical Exam Constitutional: WD/WN, vitals as above + obese Eyes: PERRL, conjunctivae normal, anicteric sclerae ENMT: external ear and nose normal, oropharynx normal Neck: trachea midline, no thyromegaly Respiratory: normal respiratory effort, lungs clear to auscultation Cardiovascular: RRR, no murmur, no edema Gastrointestinal (Abdomen): Inspection/Auscultation: + abdomen distended and + abdominal surgical scar Percussion/Palpation: abdomen soft; abdomen nontender (Nontender, improved from yesterday), no guarding, abdomen not rigid and no hernia Musculoskeletal: no cyanosis or clubbing, extremities motor strength 5/5 Skin: no rashes, warm and dry Neurologic: PERRL, EOMI, accommodation nl, no face palsy, no dysarthria Psychiatric: A+Ox3, euthymic affect Lymphatic: no cervical or axillary lymphadenopathy Results & Data ([facility]) Vital Signs (Past 12 Hours) Vital Signs Temp Pulse Resp BP Pulse Ox 05/27/20 08:04 36.9 C 73 16 132/80 95 05/26/20 23:50 36.9 C 88 14 133/84 93 PG Care Time/CCT Total # of Minutes Spent Total Time Spent with Patient: Total time spent is greater than 50% in coordination of care (as documented) at patient's floor/unit and/or counseling patient: Coding Level of Care Code 59339 Inpt Consult Level 2 Diagnoses Small bowel obstruction K56.609 Crohn's disease K50.90 Hx of abdominal surgery Z98.890 Type 2 diabetes mellitus E11.9 Obesity (BMI 30.0-34.9) E66.9 HTN (hypertension) I10 Dyslipidemia E78.5 GERD (gastroesophageal reflux disease) K21.9
[2020-05-27] MEDS ORDERED: PROMETHAZINE HCL 6.25 MG in SODIUM CHLORIDE 0.9% 50 ML IV PRN (12:31)
[2020-05-27] MEDS ORDERED: hydrALAZINE HCL 20 MG/ML VIAL IV PRN (14:16)
[2020-05-27] MEDS: PANTOprazole 40 MG in SYRINGE 0 ML IV SCH (16:14)
[2020-05-27] MEDS ORDERED: CARBOHYDRATES FOR HYPOGLYCEMIA PO PRN (17:30)
[2020-05-27] MEDS ORDERED: DEXTROSE 50% 50 ML SYRINGE IV PRN (17:30)
[2020-05-27] MEDS ORDERED: GLUCOSE 40% GEL 15 GM TUBE PO PRN (17:30)
[2020-05-27] MEDS ORDERED: GLUCAGON FOR INJ 1 MG VIAL SQ PRN (17:30)
[2020-05-27] MEDS ORDERED: GLUCOSE 10 TABS/TUBE PO PRN (17:30)
[2020-05-27] MEDS ORDERED: INSULIN ASPART 100 UNITS/ML 3 ML PEN SC SCH (21:00)
[2020-05-28] MEDS: SODIUM CHLORIDE 0.9% 1000ML 1,000 ML IV SCH ×3 (04:02→20:03)
[2020-05-28] MEDS ORDERED: Nursing to Pharmacy Communication SCH ×2 (07:15→09:15)
[2020-05-28] MEDS ORDERED: INSULIN ASPART 100 UNITS/ML 3 ML PEN SC SCH (07:30)
[2020-05-28 07:45] LABS: Hematocrit (blood only) 38.3 % (42-52); Hemoglobin 12.4 g/dL (14.0-18.0); Mean Corpuscular Hemoglobin 30.7 pg (25-34); Mean Corpuscular Hgb Conc 32.4 g/dL (32-36); Mean Corpuscular Volume 94.8 fL (80-100); Mean Platelet Volume 10.1 fL (7.4-10.4); Platelet Count 228 K/uL (130-400); RDW Coefficient of Variation 12.6 % (11.5-14.5); RDW Standard Deviation 43.2 fL (36.4-46.3); Red Blood Count 4.04 M/uL (4.7-6.1); White Blood Count 8.21 K/uL (4.8-10.8)
--- NOTE | 2020-05-28 07:46 | XRay Report ---
XR KUB/Abdomen 1 view CLINICAL HISTORY: eval bowel/gas pattern, pt with SBO COMPARISON STUDY: 02/15/2016 FINDINGS: There are gas-filled small bowel loops which are the upper limits of normal in size. No def inite transition zones are visualized. IMPRESSION: Gaseous prominence of multiple small bowel loops which are the upper limits of normal in size. ACT 112: Negative or not required by law. Electronically signed by: Jacek Merritt M.D. 05/28/2020 7:45 AM
[2020-05-28 08:14] LABS: BUN Creatinine Ratio 27.3 (10-20); Calcium 8.1 mg/dl (8.5-10.1); Creatinine Clr Calc Pharmacy 106.1 ml/min; Est GFR (African American) 114.3; Est GFR (Non-African American) 98.6; Magnesium 1.9 mg/dl (1.8-2.4); Potassium 3.4 mmol/L (3.5-5.1)
[2020-05-28 08:18] LABS: Albumin Globulin Ratio 0.9 (0.9-2); Bilirubin,Total 0.8 mg/dl (0.2-1); Globulin 3.3 gm/dl (2.5-4.0); Total Protein 6.3 gm/dl (6.4-8.2)
--- NOTE | 2020-05-28 08:44 | Surgery Progress Note ---
Date of Service May 28, 2020 Assessment & Plan (1) Small bowel obstruction: Pt with h/o Crohn's and J-pouch here with SBO Patient reports overall improvement in his symptoms He has started passing flatus and having BM's Reports no further emesis from yesterday AM KUB today revealed gaseous prominence of multiple small bowel loops upper limits of normal Based on clinical exam will advance pt to clears this morning, encouraged patient to take it slow Admission and Anticipated Discharge Date Admission Date: May 26, 2020 Supervising Physician Co-Signing Physician Notes Patient seen and examined, agree with above. 60-year-old male with history of Crohn's disease and multiple abdominal surgeries including J-pouch presented with small bowel obstruction. Yesterday he started feeling better, still little soreness left lower quadrant and pelvis but this is improved. He has passed gas and had multiple liquid bowel movements. He is tolerating clear liquids. On exam he is minimally tender in the left lower quadrant suprapubic area, mildly distended, positive bowel sounds. KUB shows some dilated loops of bowel. We will continue to advance slowly as tolerated, patient will be discharged on a low fiber diet. Surgery will continue to follow. Subjective Patient states he is feeling much better, says 90% better than on admission. Denies any nausea/vomiting this AM, last emesis was yesterday AM. He has started passing BMs and flatus. Still with some left lower quadrant pain but it is improved. Physical Exam Physical Exam: awake/alert Respiratory: normal respiratory effort Gastrointestinal (Abdomen): Inspection/Auscultation: + abdomen distended (improving) Percussion/Palpation: + abdomen tender (mild discomfort in LLQ) and abdomen soft Results & Data ([facility]) Vital Signs (Past 12 Hours) Vital Signs Temp Pulse Resp BP BP Pulse Ox 05/28/20 07:51 36.5 C 68 19 127/79 93 05/28/20 02:54 37 C 80 16 140/82 94 PG Care Time/CCT Total # of Minutes Spent Total Time Spent with Patient: Total time spent is greater than 50% in coordination of care (as documented) at patient's floor/unit and/or counseling patient: Coding Level of Care Code 35553 Subseq Hosp Care Lvl 1 Diagnoses Small bowel obstruction K56.609
[2020-05-28] MEDS: HEPARIN SOD 5,000 UNIT/0.5 ML VIAL SQ SCH ×2 (09:08→22:09)
--- NOTE | 2020-05-28 09:55 | Gastroenterology Progress Note ---
Date of Service May 28, 2020 Assessment & Plan (1) Crohn's disease: (2) Small bowel obstruction: 1. Continue diet advancement per surgery recommendations. 2. Continue supportive care. 3. Ongoing outpatient GI follow up upon discharge. Admission and Anticipated Discharge Date Admission Date: May 26, 2020 Supervising Physician Co-Signing Physician Notes I personally evaluated the patient and agree with the findings as documented by TREY Oakley Exam: abd: soft, mild lower abdominal tenderness, nd advance diet as tolerated Subjective Khoa reports ongoing symptom improvement. Pain has resolved, reports residual left-sided tenderness to palpation only. N/V has resolved. Passing flatus and did have a bm last evening. KUB this morning with gaseous distention at upper normal limits. General surgery has advanced his diet to clear liquids. He tolerated this diet well. Review of Systems Review of Systems: All systems reviewed & are unremarkable except as noted in HPI & below Physical Exam Constitutional: WD/WN, vitals as above Respiratory: normal respiratory effort, lungs clear to auscultation Cardiovascular: RRR, no murmur, no edema Gastrointestinal (Abdomen): Inspection/Auscultation: + abdomen distended and normal bowel sounds Percussion/Palpation: + abdomen tender (LLQ) and abdomen soft Psychiatric: A+Ox3, euthymic affect Results & Data Results & Data ([facility]) Vital Signs (Past 12 Hours) Vital Signs Temp Pulse Resp BP BP Pulse Ox 05/28/20 07:51 36.5 C 68 19 127/79 93 05/28/20 02:54 37 C 80 16 140/82 94 Laboratory Results Abnormal lab results 05/27/20 05/27/20 05/28/20 Range/Units 12:01 19:46 02:51 RBC (4.7-6.1) M/uL Hgb (14.0-18.0) g/dL Hct (42-52) % Potassium (3.5-5.1) mmol/L Chloride (98-107) mmol/L BUN (7-18) mg/dl BUN/Creatinine Ratio (10-20) Glucose (70-99) mg/dl POC Glucose 119 H 111 H 109 H (70-99) mg/dl Calcium (8.5-10.1) mg/dl Total Protein (6.4-8.2) gm/dl Albumin (3.4-5.0) gm/dl 05/28/20 05/28/20 05/28/20 Range/Units 05:53 07:30 07:30 RBC 4.04 L (4.7-6.1) M/uL Hgb 12.4 L (14.0-18.0) g/dL Hct 38.3 L (42-52) % Potassium 3.4 L (3.5-5.1) mmol/L Chloride 111 H (98-107) mmol/L BUN 21 H (7-18) mg/dl BUN/Creatinine Ratio 27.3 H (10-20) Glucose 112 H (70-99) mg/dl POC Glucose 110 H (70-99) mg/dl Calcium 8.1 L (8.5-10.1) mg/dl Total Protein 6.3 L (6.4-8.2) gm/dl Albumin 3.0 L (3.4-5.0) gm/dl PG Care Time/CCT Total # of Minutes Spent Total Time Spent with Patient: Total time spent is greater than 50% in coordination of care (as documented) at patient's floor/unit and/or counseling patient: Coding Level of Care Code 92574 Subseq Hosp Care Lvl 3 Diagnoses Crohn's disease K50.90 Small bowel obstruction K56.609
[2020-05-28] MEDS: PANTOprazole 40 MG in SYRINGE 0 ML IV SCH (12:02)
[2020-05-28] MEDS: INSULIN ASPART 100 UNITS/ML 3 ML PEN SC SCH ×3 (13:40→22:10)
--- NOTE | 2020-05-28 19:18 | Hospitalist Progress Note ---
Date of Service May 28, 2020 Assessment & Plan (1) Small bowel obstruction: Patient with history of Crohn's disease Imaging on admission showed small bowel obstruction Repeat KUB today shows gaseous prominence in multiple small bowel loops which are upper limits of normal in size Patient with no nausea or vomiting. Started have flatus and liquid bowel movement Tolerating liquid diet No fever or chills (2) Crohn's disease: Gastroenterology consulted and following. Appreciate their input Patient is currently on a interleukin antagonist at home (Stelara) This is being held this hospital stay Restart at the direction of gastroenterology or on discharge Further outpatient work-up per gastroenterology note (3) GERD (gastroesophageal reflux disease): Continue pantoprazole (4) Type 2 diabetes mellitus: Hemoglobin A1c was 7.1 and 03/2020 Currently diet controlled at home Continue sliding scale insulin while inpatient Follow random glucose (5) HTN (hypertension): Telmisartan 80 mg p.o. daily at home Continue hydralazine for now Follow vital signs (6) DVT prophylaxis: Heparin 5000 units subcutaneously every 12 hours Admission and Anticipated Discharge Date Admission Date: May 26, 2020 Supervising Physician Co-Signing Physician Notes SBO, hx of Crohn's Conservative management Subjective Attending: Dr. 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 He has a history of Crohn's disease and presented on 05/26/2020 with small bowel obstruction. This was treated conservatively with bowel rest and NG tube. NG tube has been removed and patient is currently tolerating liquid diet. He denies any abdominal pain today. He has no fever or chills. He has been followed by surgery as well as gastroenterology. He currently is sitting up in chair and has no acute complaints. Review of Systems Review of Systems: All systems reviewed & are unremarkable except as noted in Subjective Physical Exam Physical Exam: GENERAL : No acute distress EYES: No icterus, gaze conjugate NOSE: No evidence of epistaxis MOUTH: No lesions or candidiasis NECK: Supple LUNGS: Some scattered bronchospasm. Patient has no crackles or rhonchi HEART: Regular, rate controlled ABDOMEN: Soft, NT, ND, BS Present. Abdomen is protuberant. No guarding or rebound tenderness. EXTREMITIES: Bilateral LE edema, pedal pulses intact and equal bilaterally NEURO: A&OX3 Results & Data Results & Data ([facility]) Vital Signs (Past 12 Hours) Vital Signs Temp Pulse Resp BP Pulse Ox 05/28/20 16:27 36.6 C 72 17 156/90 H 96 05/28/20 07:51 36.5 C 68 19 127/79 93 Laboratory Results 05/28/20 07:30 05/28/20 07:30 Diagnostic Findings XR KUB/Abdomen 1 view CLINICAL HISTORY: eval bowel/gas pattern, pt with SBO COMPARISON STUDY: 02/15/2016 FINDINGS: There are gas-filled small bowel loops which are the upper limits of normal in size. No definite transition zones are visualized. IMPRESSION: Gaseous prominence of multiple small bowel loops which are the upper limits of normal in size. ACT 112: Negative or not required by law. Electronically signed by: Jacek Merritt M.D. 05/28/2020 7:45 AM PG Care Time/CCT Total # of Minutes Spent Total Time Spent with Patient: Total time spent is greater than 50% in coordination of care (as documented) at patient's floor/unit and/or counseling patient: 20 minutes Coding Level of Care Code 46972 Subseq Hosp Care Lvl 2 Diagnoses Small bowel obstruction K56.609 Crohn's disease K50.90 GERD (gastroesophageal reflux disease) K21.9 Type 2 diabetes mellitus E11.9 HTN (hypertension) I10 DVT prophylaxis Z29.9 Time Spent (min) 20
[2020-05-28 22:56] VITALS: TEMP 98.1
[2020-05-29] MEDS: SODIUM CHLORIDE 0.9% 1000ML 1,000 ML IV SCH ×2 (03:23→12:11)
[2020-05-29 07:03] VITALS: PULSE 68; O2SAT 94
[2020-05-29 07:57] LABS: Hematocrit (blood only) 37.6 % (42-52); Mean Corpuscular Hgb Conc 31.9 g/dL (32-36); Mean Platelet Volume 10.6 fL (7.4-10.4); Platelet Count 240 K/uL (130-400); RDW Coefficient of Variation 12.4 % (11.5-14.5); RDW Standard Deviation 42.2 fL (36.4-46.3); White Blood Count 7.67 K/uL (4.8-10.8)
[2020-05-29] MEDS: INSULIN ASPART 100 UNITS/ML 3 ML PEN SC SCH ×2 (09:06→12:34)
[2020-05-29] MEDS: HEPARIN SOD 5,000 UNIT/0.5 ML VIAL SQ SCH (09:06)
[2020-05-29] MEDS: PANTOprazole 40 MG in SYRINGE 0 ML IV SCH (12:19)
--- NOTE | 2020-05-29 12:53 | Surgery Progress Note ---
Date of Service May 29, 2020 Assessment & Plan (1) Small bowel obstruction: resolving advancing diet will sign off Admission and Anticipated Discharge Date Admission Date: May 26, 2020 Supervising Physician Co-Signing Physician Notes Patient seen and examined, agree with above. History of Crohn's disease and J- pouch, admitted with bowel obstruction, now resolved. He tolerated a low fiber diet for lunch and is passing gas and having bowel movements. The pain he had on arrival is gone. Okay to discharge from general surgery standpoint, follow- up with GI, return precautions given, surgery will sign off. Subjective no pain or nausea, bowels moving, advancing to low fiber lunch Physical Exam Gastrointestinal (Abdomen): Inspection/Auscultation: abdomen not distended Percussion/Palpation: abdomen soft; abdomen nontender Results & Data ([facility]) Vital Signs (Past 12 Hours) Vital Signs Temp Pulse Resp BP Pulse Ox 05/29/20 07:02 36.7 C 68 18 156/90 H 94 PG Care Time/CCT Total # of Minutes Spent Total Time Spent with Patient: Total time spent is greater than 50% in coordination of care (as documented) at patient's floor/unit and/or counseling patient: Coding Level of Care Code 56125 Subseq Hosp Care Lvl 1 Diagnoses Small bowel obstruction K56.609
[2020-05-29 14:36] VITALS: BP 140/82
--- NOTE | 2020-06-06 07:45 | Discharge Summary ---
Date of Service May 29, 2020 Admission HPI Per Admitting Provider 60yo M w/ hx UC who presents with small bowel obstruction. His last BM was about noon yesterday. He usually has about 5 soft BMs per day. None since then. He had severe, periumbilical sharp pain without radiation along with acute onset nausea and emesis. He presented to the ED where he had some improvement with pain medication. NG tube was attempted, but he could not tolerate it. Principal Diagnosis Small Bowel Obstruction Discharge Exam GENERAL : No acute distress EYES: No icterus, gaze conjugate NOSE: No evidence of epistaxis MOUTH: No lesions or candidiasis NECK: Supple LUNGS: Some scattered bronchospasm. Patient has no crackles or rhonchi HEART: Regular, rate controlled ABDOMEN: Soft, NT, ND, BS Present. Abdomen is protuberant. No guarding or rebound tenderness. EXTREMITIES: Bilateral LE edema, pedal pulses intact and equal bilaterally NEURO: A&OX3 Discharge Data Allergies Allergy/AdvReac Type Severity Reaction Status Date / Time aspirin Allergy Unknown "DOES NOT Verified 05/26/20 14:37 TAKE BECAUSE OF BLEEDING" banana Allergy Unknown itching Verified 05/26/20 14:37 metformin Allergy STOMACH Verified 05/26/20 14:37 CRAMPS AND DIARRHEA lisinopril AdvReac Mild dry Verified 05/26/20 14:37 scratchy throat with cough ramipril AdvReac Mild dry Verified 05/26/20 14:37 scratchy throat with cough Consultations 05/26/20 18:33 ED Decision to Admit Stat 05/26/20 21:00 Consult Gastroenterology Routine Ordered Studies 05/26/20 13:59 CT abd pelvis oral and IV con Stat Hospital Course (1) Small bowel obstruction: Patient with history of Crohn's disease Imaging on admission showed small bowel obstruction Repeat KUB showed gaseous prominence in multiple small bowel loops which are upper limits of normal in size Patient with no nausea or vomiting. Slowly advancing diet for past few days, now on low fiber diet and tolerating this. will have patient followup with GI and PCP as an outpatient. (2) Crohn's disease: Gastroenterology consulted and following. Appreciate their input Patient is currently on a interleukin antagonist at home (Stelara) This is being held this hospital stay Restart at the direction of gastroenterology on discharge (3) GERD (gastroesophageal reflux disease): Continue pantoprazole (4) Type 2 diabetes mellitus: Hemoglobin A1c was 7.1 and 03/2020 Currently diet controlled at home Continue sliding scale insulin while inpatient Follow random glucose (5) HTN (hypertension): Telmisartan 80 mg p.o. daily at home Continue hydralazine for now Follow vital signs (6) DVT prophylaxis: Heparin 5000 units subcutaneously every 12 hours Total Time Total Time Spent Total Time Spent (In Minutes): 32 Total Time Includes: Examination of the Patient, Discharge Planning and Medication Reconciliation Discharge Plan Discharge Items Patient Disposition: Home - Self-Care Reason For Visit: SBO Discharge Diagnosis: Small bowel obstruction Activity: Resume your previous activity Non-emergency contact: Primary Care Provider Call non-emergency contact if: you have any medication questions Follow-up/Referrals: Emiliana Osborn PA-C [Primary Care Provider] - Diet: Low Fiber Addtl Attending Provider Instructions: Followup with GI and PCP within one month. Continue low fiber diet. Pending Studies at Discharge: No Stand-Alone Forms: My [facility] [employer], Work/School Release (Inpt), Smoking Cessation Medications and DC Order Prescriptions: Continued pantoprazole [Protonix] 20 mg tablet,delayed release (DR/EC) 40 mg PO QAM Qty: 90 RF: 3 diclofenac sodium 1 % gel 2 gm TOP QID RF: 0 cholecalciferol (vitamin D3) [Vitamin D3] 25 mcg (1,000 unit) capsule 2,000 unit PO QAM RF: 0 rosuvastatin 20 mg tablet 20 mg PO QAM RF: 0 Stelara 90 mg/mL syringe 90 mg subcut Q8WK RF: 0 No Action telmisartan 80 mg tablet 80 mg PO DAILY Qty: 90 RF: 3 Discharge Orders: Discharge Order (Routine); Ordered 05/29/20 Ordered By: Ronaldo Dejesus/Other Patient Handouts: Small Bowel Obstruction Admission Data Admit Date/Time: 05/26/20 19:17 Attending Provider: Ronaldo Link Admit Provider: Juno Mac Primary Care Provider: Emiliana Osborn Other Providers: Roly Bird ; Juno Mac Other Interventions: Discharge Summary Assessment (RN) Last Done: 05/29/20 14:33 Coding Level of Care Code D/C Day Management >30 mins Diagnoses Small bowel obstruction K56.609 Crohn's disease K50.90 GERD (gastroesophageal reflux disease) K21.9 Type 2 diabetes mellitus E11.9 HTN (hypertension) I10 DVT prophylaxis Z29.9 Time Spent (min) 32
== END 2020-05-29 15:36 | disposition home or self-care (01) | DRG 389 ==
LOC: ED 13:13 → 3N 19:17 → SUATTDRO 19:17 → 3N 20:58
DX: K50.90 Crohn's disease, unspecified, without complications; E78.5 Hyperlipidemia, unspecified; Z88.8 Allergy status to other drugs, medicaments and biological substances; Z68.30 Body mass index [BMI] 30.0-30.9, adult; I10 Essential (primary) hypertension; K56.699 Other intestinal obstruction unspecified as to partial versus complete obstruction; G65.0 Sequelae of Guillain-Barre syndrome; Z98.0 Intestinal bypass and anastomosis status; Z79.899 Other long term (current) drug therapy; Z79.82 Long term (current) use of aspirin; Z79.84 Long term (current) use of oral hypoglycemic drugs; E66.9 Obesity, unspecified; Z79.52 Long term (current) use of systemic steroids; E11.9 Type 2 diabetes mellitus without complications; H90.A22 Sensorineural hearing loss, unilateral, left ear, with restricted hearing on the contralateral side; Z86.2 Personal history of diseases of the blood and blood-forming organs and certain disorders involving the immune mechanism; K21.9 Gastro-esophageal reflux disease without esophagitis

== ENCOUNTER 2022-07-14 09:43 | Inpatient (IN) ==
[2022-07-14 11:24] LABS: Basophils # (auto) 0.04 K/uL (0-0.2); Basophils % (auto) 0.3 %; Hematocrit (blood only) 47.5 % (40.1-51.0); Hemoglobin 16.5 g/dl (14.0-18.0); Immature Granulocytes # (auto) 0.07 K/uL (0.00-0.02); Immature Granulocytes % (auto) 0.5 %; Lymphocytes # (auto) 1.42 K/uL (1.2-3.4); Lymphocytes % (auto) 10.4 %; Mean Corpuscular Hemoglobin 30.8 pg (25.0-34.0); Mean Corpuscular Hgb Conc 34.7 g/dL (32.0-36.0); Mean Corpuscular Volume 88.8 fL (80.0-100.0); Mean Platelet Volume 10.5 fL (9.4-12.4); Monocytes # (auto) 1.33 K/uL (0.24-0.82); Monocytes % (auto) 9.8 %; Neutrophils # (auto) 10.78 K/uL (1.4-6.5); Platelet Count 250 K/uL (130-400); RDW Coefficient of Variation 12.1 % (11.5-14.5); RDW Standard Deviation 39.2 fL (36.4-46.3); Red Blood Count 5.35 M/uL (4.63-6.08); White Blood Count 13.64 K/ul (4.8-10.8)
[2022-07-14 11:46] LABS: Alanine Aminotransferase 37 U/L (7-52); Albumin Level 4.3 gm/dl (3.4-5.0); Alkaline Phosphatase 52 U/L (34-104); Anion Gap 14 (3-11); Bilirubin,Total 0.8 mg/dl (0.2-1.0); Blood Urea Nitrogen 29 mg/dl (6-23); Calcium 10.5 mg/dl (8.5-10.1); Carbon Dioxide 23 mmol/L (21-32); Chloride 95 mmol/L (98-107); Creatinine Clr Calc Pharmacy 59.3 ml/min; Est GFR (African American) 66.5 ml/min; Est GFR (Non-African American) 57.4 ml/min; Globulin 4.1 gm/dl (2.5-4.0); Glucose 283 mg/dl (70-99(Fasting)); Lipase 26 U/L (11-82); Sodium 132 mmol/L (136-145); Total Protein 8.4 gm/dl (6.0-8.3)
[2022-07-14 13:02] LABS: Potassium 4.3 mmol/L (3.5-5.1)
[2022-07-14] MEDS ORDERED: SODIUM CHLORIDE 0.9% 1000ML 1,000 ML IV ONE (16:25)
--- NOTE | 2022-07-14 16:52 | Emergency Department Note ---
History of Present Illness General Chief complaint: Diarrhea Stated complaint: DIARRHEA, DEHYDRATION Time Seen by Provider: 07/14/22 16:32 History of Present Illness This is a 62-year-old male presenting to the emergency department for evaluation of diarrheal illness for the past 3 days. The patient does have a history of Crohn's disease and has had innumerable episodes of watery diarrhea over the past several days. He is trying to stay hydrated, but developed an ulceration in his mouth that is painful. He has not had fever or chills. He does follow with [facility] gastroenterology and did try to reach out to their office, however today is the observation day of , and the office is closed. The patient does not have significant abdominal pain, but is concerned for dehydration. He rates his overall discomfort an 8/10. No recent travel history or antibiotic use. No known exposure to disease. He does not identify aggravating or alleviating factors. Home Medications Medication Instructions Recorded Confirmed Type diclofenac sodium 1 % topical gel 2 gm topical QID PRN Pain 07/01/19 07/14/22 History cholecalciferol (vitamin D3) 50 50 mcg PO QAM 09/07/20 07/14/22 History mcg (2,000 unit) capsule (Vitamin D3) Stelara 90 mg/mL subcutaneous See Rx Instructions .Route 11/12/21 07/14/22 Rx syringe (ustekinumab) .COMPLEX #1 mL rosuvastatin 20 mg tablet 20 mg PO QAM #90 tabs 11/22/21 07/14/22 Rx Invokana 100 mg tablet 100 mg PO QAM #30 tabs 02/13/22 07/14/22 Rx (canagliflozin) telmisartan 80 mg tablet 80 mg PO QAM #90 tabs 06/02/22 07/14/22 Rx pantoprazole 20 mg tablet,delayed 20 mg PO QAM 07/14/22 07/14/22 History release Allergies Allergy/AdvReac Type Severity Reaction Status Date / Time lisinopril AdvReac Mild Dry Verified 06/23/22 08:14 scratchy throat with cough metformin AdvReac Mild STOMACH Verified 06/23/22 08:14 CRAMPS AND DIARRHEA ramipril AdvReac Mild Dry Verified 06/23/22 08:14 scratchy throat with cough aspirin AdvReac Unknown History of Verified 06/23/22 08:14 bleeding Past Med/Surg History Medical History Dyslipidemia GERD (gastroesophageal reflux disease) History of renal stone Hx of Guillain-Spencer syndrome RESIDUAL EFFECT BALANCE ISSUES AND CANNOT STAND STILL Hypertension Osteoarthritis Prediabetes Surgical History H/O resection of large bowel History of colonoscopy History of esophagogastroduodenoscopy (EGD) Hx of abdominal surgery X3 - CURRENTLY HAS "J POUCH" Hx of appendectomy Hx of tonsillectomy Family History Other No family history of adverse response to anesthesia No family history of bleeding disorder No significant family history Denies family history of Breast cancer Social History Smoking Status: Never smoker Second Hand Exposure: No; Hx Alcohol Use: No Hx Substance Use: No Preferred Language: Icelandic Communication Ability: Effective Visual Impairment: Limited Hearing Ability: Normal Paperhanger Required: No Beliefs That Will Affect Care: None marital status: Single Current Living Situation: Alone current occupational status: employed Feels Safe at Home: Yes Childhood Exposure to Second-Hand Smoke: Yes caffeine: Yes Dental Care, Regularly: No Physical Activity Frequency: Daily Physical Activity Frequency Comment: WORK Seatbelt Use: always Sunscreen Use: No Assistive Devices: Glasses Review of Systems A total of 10 systems reviewed and were otherwise negative Physical Exam Vital Signs Vital Signs - 24 hr 07/14/22 10:21 07/14/22 17:43 07/14/22 19:00 Temperature 37.1 C Temperature Source Oral Pulse Rate 106 H Pulse Rate [Finger] 88 82 Respiratory Rate 18 18 16 Respiratory Effort / Characteristics Non-Labored Spontaneous Non-Labored Spontaneous Respiratory Depth Normal Normal Respiratory Pattern Regular Blood Pressure 102/64 Blood Pressure [Right Arm] 110/68 112/72 Blood Pressure Mean 76 Blood Pressure Mean [Right Arm] 82 85 Blood Pressure Position [Right Arm] Lying Pulse Oximetry 95 97 97 Oxygen Delivery Method Room Air Room Air Sepsis Recent Fever Within 48 Hours No Sepsis New/Unexplained Change in Mental Status No Sepsis Action Taken by Nursing No Action Required 07/14/22 21:00 Temperature Temperature Source Pulse Rate Pulse Rate [Finger] 82 Respiratory Rate 18 Respiratory Effort / Characteristics Non-Labored Spontaneous Respiratory Depth Normal Respiratory Pattern Blood Pressure Blood Pressure [Right Arm] 112/73 Blood Pressure Mean Blood Pressure Mean [Right Arm] 86 Blood Pressure Position [Right Arm] Lying Pulse Oximetry 96 Oxygen Delivery Method Room Air Sepsis Recent Fever Within 48 Hours Sepsis New/Unexplained Change in Mental Status Sepsis Action Taken by Nursing VITALS: Vitals are noted on the nurse's note and reviewed by myself. Vital signs with mild tachycardia.. GENERAL: Well-developed, well-nourished, white male, who is in no acute distress and resting comfortably. Patient is cooperative with the examination. HEAD: Normocephalic atraumatic. MOUTH: Mucous membranes moist. Tonsils are not enlarged. Pharynx without erythema, blood, or exudate. Uvula midline. Airway patent. NECK: Supple without nuchal rigidity. No lymphadenopathy. No thyromegaly. Cervical spine is nontender. HEART: Regular rate and rhythm without murmurs gallops or rubs. LUNGS: Clear to auscultation bilaterally without wheezes, rales or rhonchi. No retractions or accessory muscle use. ABDOMEN: Positive normal bowel sounds x 4. Soft, nontender, without masses or organomegaly. No guarding or rebound tenderness. MUSCULOSKELETAL: No muscle atrophy, erythema, or edema noted. Full range of motion in all extremities. NEURO: Patient was alert and oriented to person place and time. CN II through XII grossly intact. Course Administered Medications Lactated Ringer's (Lr) 1,000 mls @ 125 mls/hr IV .Q8H [facility] Stop: 08/13/22 22:14 Last Admin: 07/14/22 22:26 Dose: 125 mls/hr Documented By: ILSA Discontinued Medications Sodium Chloride (Nss 1000ml) 1,000 mls @ 999 mls/hr IV .Q1H1M ONE Stop: 07/14/22 17:25 Last Infusion: 07/14/22 18:13 Dose: 0 mls/hr Documented By: Admin: 07/14/22 17:01 Dose: 999 mls/hr Documented By: YAW Sodium Chloride (Nss 1000ml) 1,000 mls @ 999 mls/hr IV .Q1H1M JACOB Stop: 07/14/22 18:40 Last Infusion: 07/14/22 19:00 Dose: 0 mls/hr Documented By: Admin: 07/14/22 17:51 Dose: 999 mls/hr Documented By: Infusion: 07/14/22 17:51 Dose: 999 mls/hr Documented By: Admin: 07/14/22 17:01 Dose: 999 mls/hr Documented By: YAW Prednisone (Prednisone 20 Mg Tab) 40 mg PO NOW STA Stop: 07/14/22 20:02 Last Admin: 07/14/22 20:12 Dose: 40 mg Documented By: YAW Medical Decision Making Differential Diagnosis Differential diagnosis: Etiologies such as biliary colic, cholecystitis, hepatitis, pancreatitis, cardiac disease, pancreatitis, gastritis, peptic ulcer disease, appendicitis, cystitis, diverticulitis, mesenteric ischemia, inflammatory bowel disease, ileus, bowel obstruction, testicular/adnexal torsion, aortic pathology, shingles, as well as others were considered Laboratory Data Result diagrams: 07/14/22 11:15 07/14/22 12:09 Lab Results 07/14/22 07/14/22 07/14/22 Range/Units 11:15 11:15 11:15 WBC 13.64 H (4.8-10.8) K/ul RBC 5.35 (4.63-6.08) M/uL Hgb 16.5 (14.0-18.0) g/dl Hct 47.5 (40.1-51.0) % MCV 88.8 (80.0-100.0) fL MCH 30.8 (25.0-34.0) pg MCHC 34.7 (32.0-36.0) g/dL RDW Std Deviation 39.2 (36.4-46.3) fL RDW Coeff of Selina 12.1 (11.5-14.5) % Plt Count 250 (130-400) K/uL MPV 10.5 (9.4-12.4) fL Immature Gran % (Auto) 0.5 % Neut % (Auto) 79.0 % Lymph % (Auto) 10.4 % Maury % (Auto) 9.8 % Eos % (Auto) 0.0 % Baso % (Auto) 0.3 % Neut # (Auto) 10.78 H (1.4-6.5) K/uL Lymph # (Auto) 1.42 (1.2-3.4) K/uL Maury # (Auto) 1.33 H (0.24-0.82) K/uL Eos # (Auto) 0.00 (0-0.50) K/uL Baso # (Auto) 0.04 (0-0.2) K/uL Immature Gran # (Auto) 0.07 H (0.00-0.02) K/uL ESR 59 H (0-20) mm/hr Sodium 132 L (136-145) mmol/L Potassium TNP Chloride 95 L (98-107) mmol/L Carbon Dioxide 23 (21-32) mmol/L Anion Gap 14 H (3-11) BUN 29 H (6-23) mg/dl Creatinine 1.32 (0.6-1.4) mg/dl Est Cr Clr Drug Dosing 59.3 ml/min Est GFR ( Amer) 66.5 ml/min Est GFR (Non-Af Amer) 57.4 ml/min BUN/Creatinine Ratio 22.0 H (10-20) Glucose 283 H (70-99(Fasting)) mg/dl Calcium 10.5 H (8.5-10.1) mg/dl Magnesium (1.7-2.4) mg/dl Total Bilirubin 0.8 (0.2-1.0) mg/dl AST TNP ALT 37 (7-52) U/L Alkaline Phosphatase 52 (34-104) U/L C-Reactive Protein (0-0.5) mg/dl Total Protein 8.4 H (6.0-8.3) gm/dl Albumin 4.3 (3.4-5.0) gm/dl Globulin 4.1 H (2.5-4.0) gm/dl Albumin/Globulin Ratio 1.0 (0.9-2) Lipase 26 (11-82) U/L Urine Color Urine Appearance (Clear) Urine pH (4.5-7.5) Ur Specific [place] (1.000-1.030) Urine Protein (Negative) Urine Glucose (UA) (Negative) Urine Ketones (Negative) Urine Blood (Negative) Urine Nitrite (Negative) Urine Bilirubin (Negative) Urine Urobilinogen (Negative) Ur Leukocyte Esterase (Negative) Urine WBC (Auto) (0-5) /hpf Urine RBC (Auto) (0-4) /hpf U Hyaline Cast (Auto) (0-5) /lpf U Epithel Cells (Auto) (0-5) /lpf Urine Bacteria (Auto) (Negative) Stl C. cayetanensis PCR (NotDetected) Stool Rotavirus A PCR (NotDetected) Stl Adenov F PCR (NotDetected) Stool Astrovirus (PCR) (NotDetected) Stool Campylobacter PCR (NotDetected) Stl C. diff Tox B Gene (Neg) Stool Cryptosporidium PCR (NotDetected) Stl E.coli Shiga Tox PCR (NotDetected) Stl Enterotoxigenic E PCR (NotDetected) Stool EPEC (PCR) (NotDetected) Stool EAEC (PCR) (NotDetected) Stl E. histolytica PCR (NotDetected) Stool Giardia Lamblia PCR (NotDetected) Stool Salmonella PCR (NotDetected) Stool Sapovirus (PCR) (NotDetected) Stl P. shigelloides PCR (NotDetected) Stl Shigella/EIEC PCR (NotDetected) St Y.enterocolitica PCR (NotDetected) Stool Vibrio (PCR) (NotDetected) Stl Vibrio cholerae PCR (NotDetected) Stl Norovirus GI/GII PCR (NotDetected) SARS-CoV-2, RNA, NAAT (NEGATIVE) 07/14/22 07/14/22 07/14/22 Range/Units 12:09 12:09 17:40 WBC (4.8-10.8) K/ul RBC (4.63-6.08) M/uL Hgb (14.0-18.0) g/dl Hct (40.1-51.0) % MCV (80.0-100.0) fL MCH (25.0-34.0) pg MCHC (32.0-36.0) g/dL RDW Std Deviation (36.4-46.3) fL RDW Coeff of Selina (11.5-14.5) % Plt Count (130-400) K/uL MPV (9.4-12.4) fL Immature Gran % (Auto) % Neut % (Auto) % Lymph % (Auto) % Maury % (Auto) % Eos % (Auto) % Baso % (Auto) % Neut # (Auto) (1.4-6.5) K/uL Lymph # (Auto) (1.2-3.4) K/uL Maury # (Auto) (0.24-0.82) K/uL Eos # (Auto) (0-0.50) K/uL Baso # (Auto) (0-0.2) K/uL Immature Gran # (Auto) (0.00-0.02) K/uL ESR (0-20) mm/hr Sodium (136-145) mmol/L Potassium 4.3 Chloride (98-107) mmol/L Carbon Dioxide (21-32) mmol/L Anion Gap (3-11) BUN (6-23) mg/dl Creatinine (0.6-1.4) mg/dl Est Cr Clr Drug Dosing ml/min Est GFR ( Amer) ml/min Est GFR (Non-Af Amer) ml/min BUN/Creatinine Ratio (10-20) Glucose (70-99(Fasting)) mg/dl Calcium (8.5-10.1) mg/dl Magnesium 2.2 (1.7-2.4) mg/dl Total Bilirubin (0.2-1.0) mg/dl AST 24 ALT (7-52) U/L Alkaline Phosphatase (34-104) U/L C-Reactive Protein 4.33 H (0-0.5) mg/dl Total Protein (6.0-8.3) gm/dl Albumin (3.4-5.0) gm/dl Globulin (2.5-4.0) gm/dl Albumin/Globulin Ratio (0.9-2) Lipase (11-82) U/L Urine Color Urine Appearance (Clear) Urine pH (4.5-7.5) Ur Specific [place] (1.000-1.030) Urine Protein (Negative) Urine Glucose (UA) (Negative) Urine Ketones (Negative) Urine Blood (Negative) Urine Nitrite (Negative) Urine Bilirubin (Negative) Urine Urobilinogen (Negative) Ur Leukocyte Esterase (Negative) Urine WBC (Auto) (0-5) /hpf Urine RBC (Auto) (0-4) /hpf U Hyaline Cast (Auto) (0-5) /lpf U Epithel Cells (Auto) (0-5) /lpf Urine Bacteria (Auto) (Negative) Stl C. cayetanensis PCR (NotDetected) Stool Rotavirus A PCR (NotDetected) Stl Adenov F 40/ PCR (NotDetected) Stool Astrovirus (PCR) (NotDetected) Stool Campylobacter PCR (NotDetected) Stl C. diff Tox B Gene (Neg) Stool Cryptosporidium PCR (NotDetected) Stl E.coli Shiga Tox PCR (NotDetected) Stl Enterotoxigenic E PCR (NotDetected) Stool EPEC (PCR) (NotDetected) Stool EAEC (PCR) (NotDetected) Stl E. histolytica PCR (NotDetected) Stool Giardia Lamblia PCR (NotDetected) Stool Salmonella PCR (NotDetected) Stool Sapovirus (PCR) (NotDetected) Stl P. shigelloides PCR (NotDetected) Stl Shigella/EIEC PCR (NotDetected) St Y.enterocolitica PCR (NotDetected) Stool Vibrio (PCR) (NotDetected) Stl Vibrio cholerae PCR (NotDetected) Stl Norovirus GI/GII PCR (NotDetected) SARS-CoV-2, RNA, NAAT POSITIVE A* (NEGATIVE) 07/14/22 07/14/22 07/14/22 Range/Units 17:45 17:45 17:45 WBC (4.8-10.8) K/ul RBC (4.63-6.08) M/uL Hgb (14.0-18.0) g/dl Hct (40.1-51.0) % MCV (80.0-100.0) fL MCH (25.0-34.0) pg MCHC (32.0-36.0) g/dL RDW Std Deviation (36.4-46.3) fL RDW Coeff of Selina (11.5-14.5) % Plt Count (130-400) K/uL MPV (9.4-12.4) fL Immature Gran % (Auto) % Neut % (Auto) % Lymph % (Auto) % Maury % (Auto) % Eos % (Auto) % Baso % (Auto) % Neut # (Auto) (1.4-6.5) K/uL Lymph # (Auto) (1.2-3.4) K/uL Maury # (Auto) (0.24-0.82) K/uL Eos # (Auto) (0-0.50) K/uL Baso # (Auto) (0-0.2) K/uL Immature Gran # (Auto) (0.00-0.02) K/uL ESR (0-20) mm/hr Sodium (136-145) mmol/L Potassium Chloride (98-107) mmol/L Carbon Dioxide (21-32) mmol/L Anion Gap (3-11) BUN (6-23) mg/dl Creatinine (0.6-1.4) mg/dl Est Cr Clr Drug Dosing ml/min Est GFR ( Amer) ml/min Est GFR (Non-Af Amer) ml/min BUN/Creatinine Ratio (10-20) Glucose (70-99(Fasting)) mg/dl Calcium (8.5-10.1) mg/dl Magnesium (1.7-2.4) mg/dl Total Bilirubin (0.2-1.0) mg/dl AST ALT (7-52) U/L Alkaline Phosphatase (34-104) U/L C-Reactive Protein (0-0.5) mg/dl Total Protein (6.0-8.3) gm/dl Albumin (3.4-5.0) gm/dl Globulin (2.5-4.0) gm/dl Albumin/Globulin Ratio (0.9-2) Lipase (11-82) U/L Urine Color Dark Yellow Urine Appearance Clear (Clear) Urine pH 5.0 (4.5-7.5) Ur Specific [place] 1.039 H (1.000-1.030) Urine Protein 1+ H (Negative) Urine Glucose (UA) 3+ H (Negative) Urine Ketones Trace H (Negative) Urine Blood Negative (Negative) Urine Nitrite Negative (Negative) Urine Bilirubin Negative (Negative) Urine Urobilinogen Negative (Negative) Ur Leukocyte Esterase Negative (Negative) Urine WBC (Auto) 1-5 (0-5) /hpf Urine RBC (Auto) 0-4 (0-4) /hpf U Hyaline Cast (Auto) 1-5 (0-5) /lpf U Epithel Cells (Auto) 10-20 H (0-5) /lpf Urine Bacteria (Auto) Negative (Negative) Stl C. cayetanensis PCR Not Detected (NotDetected) Stool Rotavirus A PCR Not Detected (NotDetected) Stl Adenov F 40/41 PCR Not Detected (NotDetected) Stool Astrovirus (PCR) Not Detected (NotDetected) Stool Campylobacter PCR Not Detected (NotDetected) Stl C. diff Tox B Gene Negative Cdiff Gene (Neg) Stool Cryptosporidium PCR Not Detected (NotDetected) Stl E.coli Shiga Tox PCR Not Detected (NotDetected) Stl Enterotoxigenic E PCR Not Detected (NotDetected) Stool EPEC (PCR) Not Detected (NotDetected) Stool EAEC (PCR) Not Detected (NotDetected) Stl E. histolytica PCR Not Detected (NotDetected) Stool Giardia Lamblia PCR Not Detected (NotDetected) Stool Salmonella PCR Not Detected (NotDetected) Stool Sapovirus (PCR) Not Detected (NotDetected) Stl P. shigelloides PCR Not Detected (NotDetected) Stl Shigella/EIEC PCR Not Detected (NotDetected) St Y.enterocolitica PCR Not Detected (NotDetected) Stool Vibrio (PCR) Not Detected (NotDetected) Stl Vibrio cholerae PCR Not Detected (NotDetected) Stl Norovirus GI/GII PCR Not Detected (NotDetected) SARS-CoV-2, RNA, NAAT (NEGATIVE) Imaging Data Radiologist's Impression: KUB X-Ray 07/14/22 16:42 KUB CLINICAL HISTORY: Diarrhea. Crohn's disease. FINDINGS: 2 AP supine abdominal radiographs are compared to study dated 05/28/2020 and correlated with abdominal CT dated 05/26/2020. There is a nonobstructive abdominal bowel gas pattern. Postsurgical change is seen in the right mid abdomen and the pelvis. No evidence of intraperitoneal free air is seen on these supine images. Calcified gallstones are noted in the right upper quadrant. The lung bases are clear as imaged. The bony structures appear intact. IMPRESSION: 1. Postsurgical change as above with no radiographic evidence of high-grade bowel obstruction. 2. Cholelithiasis. Electronically signed by: Sagar Morrissey M.D. 07/14/2022 5:25 PM MDM Narrative Physical exam and history were performed. Nursing notes, EMR, and Medication List were personally reviewed. Patient appears to have multiple episodes of diarrhea each day for the past several days. He does have a history of Crohn's disease, and per history has a history of small bowel obstruction in the past. Patient arrives during a period of very high ER volume and acuity with extended wait times. Nursing protocol orders have been performed and many of these are available for my review at the time of patient interaction. Patient's blood work is as above and was reviewed. He is with a slightly elevated white count of 13,000. He does not have significant anemia. Potassium is 4.3. Sed rate and CRP are both elevated. BUN is 29 and creatinine is 1.32, however the patient's baseline is typically around 0.8. Glucose is 283, which is much higher than his normal. He is not on insulin. Stool studies were gathered and are negative. KUB was reviewed by myself and radiology showing no obstructive process. COVID testing is POSITIVE. Case was reviewed with my attending. I did reach out to on-call gastroenterology, and it is difficult to determine if the patient has a positive COVID causing his symptoms, or if this is more of a Crohn's flare. The patient voices a strong desire to stay in the hospital as he is not able to take care of himself at home. He will need steroids, and paxlovid may be considered as well. He likely will need insulin with his illness, corticosteroid need, and diabetes. The case was discussed with the on-call hospitalist team who agreed to evaluate him here in the ER. Please see their dictation for further patient course, plan, and disposition. The chart was completed utilizing [employer] Speech Voice Recognition Software. Grammatical errors, random word insertions, pronoun errors, and incomplete sentences are an occasional consequence of this system due to software limitations, ambient noise, and hardware issues. Any formal questions or concerns about the content, text, or information contained within the body of this dictation should be directly addressed to the provider for clarification. . Impression & Plan Diarrhea, Crohns disease, DULCE MARIA (acute kidney injury), COVID-19, Diabetes Discharge Plan Visit Data Chief Complaint: Diarrhea Stated Complaint: DIARRHEA, DEHYDRATION ED Provider: Sagar Taylor ED Midlevel Provider: Tony Samaniego Discharge Problem: Diarrhea, Crohns disease, DULCE MARIA (acute kidney injury), COVID-19, Diabetes Forms Stand Alone Forms: My [facility] Pediatric[facility] Prescriptions Prescriptions: No Action Stelara 90 mg/mL syringe See Rx Instructions .ROUTE .COMPLEX Qty: 1 8RF Dose Instruction: INJECT 1 SYRINGE (90 MG) UNDER THE SKIN EVERY 8 WEEKS Rx Instructions: INJECT 1 SYRINGE (90 MG) UNDER THE SKIN EVERY 8 WEEKS rosuvastatin 20 mg tablet 20 mg PO QAM Qty: 90 3RF Invokana 100 mg tablet 100 mg PO QAM Qty: 30 6RF telmisartan 80 mg tablet 80 mg PO QAM Qty: 90 3RF diclofenac sodium 1 % gel 2 gm TOP QID PRN (Reason: Pain) cholecalciferol (vitamin D3) [Vitamin D3] 50 mcg (2,000 unit) Capsule 50 mcg PO QAM pantoprazole 20 mg tablet,delayed release (DR/EC) 20 mg PO QAM Rx Instructions: take 1 tablet by mouth every morning Referrals Referrals: Daljit Fernandes DO [Primary Care Provider] -
[2022-07-14] MEDS: SODIUM CHLORIDE 0.9% 1000ML 1,000 ML IV SCH ×2 (17:01→17:51)
[2022-07-14 17:24] LABS: C Reactive Protein 4.33 mg/dl (0-0.5); Magnesium 2.2 mg/dl (1.7-2.4)
--- NOTE | 2022-07-14 17:26 | XRay Report ---
KUB CLINICAL HISTORY: Diarrhea. Crohn's disease. FINDINGS: 2 AP supine abdominal radiographs are compared to study dated 05/28/2020 and correlated with abdominal CT dated 05/26/2020. There is a nonobstructive abdominal bowel gas pattern. Postsurgical ch arcenio is seen in the right mid abdomen and the pelvis. No evidence of intraperitoneal free air is seen on these supine images. Calcified gallstones are noted in the right upper quadrant. The lung bases a re clear as imaged. The bony structures appear intact. IMPRESSION: 1. Postsurgical change as above with no radiographic evidence of high-grade bowel obstruction. 2. Cholelithiasis. Electronically signed by: Sagar Morrissey M.D. 07/14/2022 5:25 PM
[2022-07-14 18:05] LABS: Appearance Urine Clear (Clear); Bacteria Urine Automated Negative (Negative); Bilirubin Urine Negative (Negative); Blood Urine Negative (Negative); Color Urine Dark Yellow; Glucose Urine UA 3+ (Negative); Ketones Urine Trace (Negative); Leukocyte Esterase Urine Negative (Negative); Nitrite Urine Negative (Negative); Protein Urine 1+ (Negative); RBC Urine Automated 0-4 /hpf (0-4); Specific Gravity Urine 1.039 (1.000-1.030); Urobilinogen Urine Negative (Negative)
[2022-07-14 19:37] LABS: Adenovirus F 40/41 PCR Not Detected (NotDetected); Astrovirus PCR Not Detected (NotDetected); Campylobacter PCR Not Detected (NotDetected); Cryptosporidium PCR Not Detected (NotDetected); Cyclospora cayetanensis PCR Not Detected (NotDetected); Entamoeba histolytica PCR Not Detected (NotDetected); Enteroaggregative E.coli(EAEC) Not Detected (NotDetected); Enteropathogenic E.coli (EPEC) Not Detected (NotDetected); Enterotoxigenic E.coli (ETEC) Not Detected (NotDetected); Giardia lamblia PCR Not Detected (NotDetected); Norovirus GI/GII PCR Not Detected (NotDetected); Plesiomonas shigelloides PCR Not Detected (NotDetected); Rotavirus A PCR Not Detected (NotDetected); Salmonella PCR Not Detected (NotDetected); Sapovirus PCR Not Detected (NotDetected); Shiga-like Toxin E.coli (STEC) Not Detected (NotDetected); Shigella/Enteroinvasive E.coli Not Detected (NotDetected); Vibrio cholerae PCR Not Detected (NotDetected); Vibrio species PCR Not Detected (NotDetected); Yersinia enterocolitica PCR Not Detected (NotDetected)
[2022-07-14] MEDS ORDERED: predniSONE 20 MG TAB PO STA (20:01)
--- NOTE | 2022-07-14 22:01 | History & Physical Report ---
Date of Service July 14, 2022 Assessment & Plan (1) Diarrhea: Plan: 4-5 episodes per day since Thursday. Non-bloody and no melena. Unclear whether GI Covid-19 symptoms vs. Crohn's flare vs. some of both. Minimal pain. KUB in ER was normal. Stool BioFire negative. - IV fluids - Start prednisone - Gosper diet - GI consulted for AM - If GI approves, can use Imodium PRN (2) DULCE MARIA (acute kidney injury): Plan: Likely pre-renal from diarrhea. Baseline normal at 0.8; now up to 1.3. - Continue IV fluids - Monitor (3) HTN (hypertension): Plan: BP stable in the ER. - Hold ARB for DULCE MARIA (4) Crohns disease: Plan: Follows with [facility]. - Treat for mild flare as above (5) Type 2 diabetes mellitus: Plan: A1c was 7.4% in 05/2022. Normally in low 100s per patient; more recently > 200, likely due to illness. - Hold home canagliflozin - Sliding scale insulin - Glycemic pharmacy consulted for possible NPH given steroids. (6) DVT prophylaxis: Plan: Heparin 5,000 units SQ BID FULL CODE per patient in ER History of Present Illness Primary Care Provider: Daljit Fernandes, 62yo M w/ hx of Crohn's and HTN who presents with diarrhea and possible Crohn's flare. Reports diarrhea starting on Thursday. No blood or melenic stools, just judith prakash and brown. No real abdominal pain. No known sick contacts. He reports 4-5 episodes of diarrhea each day. Also has Covid positive today. No real respiratory symptoms and does not know where he was exposed. 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 Allergies Allergy/AdvReac Type Severity Reaction Status Date / Time lisinopril AdvReac Mild Dry Verified 06/23/22 08:14 scratchy throat with cough metformin AdvReac Mild STOMACH Verified 06/23/22 08:14 CRAMPS AND DIARRHEA ramipril AdvReac Mild Dry Verified 06/23/22 08:14 scratchy throat with cough aspirin AdvReac Unknown History of Verified 06/23/22 08:14 bleeding Home Medications Medication Instructions Recorded Confirmed Type diclofenac sodium 1 % topical gel 2 gm topical QID PRN Pain 07/01/19 07/14/22 History cholecalciferol (vitamin D3) 50 50 mcg PO QAM 09/07/20 07/14/22 History mcg (2,000 unit) capsule (Vitamin D3) Stelara 90 mg/mL subcutaneous See Rx Instructions .Route 11/12/21 07/14/22 Rx syringe (ustekinumab) .COMPLEX #1 mL rosuvastatin 20 mg tablet 20 mg PO QAM #90 tabs 11/22/21 07/14/22 Rx Invokana 100 mg tablet 100 mg PO QAM #30 tabs 02/13/22 07/14/22 Rx (canagliflozin) telmisartan 80 mg tablet 80 mg PO QAM #90 tabs 06/02/22 07/14/22 Rx pantoprazole 20 mg tablet,delayed 20 mg PO QAM 07/14/22 07/14/22 History release Past Med/Surg History Medical History Dyslipidemia GERD (gastroesophageal reflux disease) History of renal stone Hx of Guillain-Stamford syndrome RESIDUAL EFFECT BALANCE ISSUES AND CANNOT STAND STILL Hypertension Osteoarthritis Prediabetes Surgical History H/O resection of large bowel History of colonoscopy History of esophagogastroduodenoscopy (EGD) Hx of abdominal surgery X3 - CURRENTLY HAS "J POUCH" Hx of appendectomy Hx of tonsillectomy Family History Other No family history of adverse response to anesthesia No family history of bleeding disorder No significant family history Denies family history of Breast cancer Social History Smoking Status: Never smoker Second Hand Exposure: No; Hx Alcohol Use: No Hx Substance Use: No Preferred Language: Greek Communication Ability: Effective Visual Impairment: Limited Hearing Ability: Normal Site Surveyor Required: No Beliefs That Will Affect Care: None marital status: Single Current Living Situation: Alone current occupational status: employed Feels Safe at Home: Yes Childhood Exposure to Second-Hand Smoke: Yes caffeine: Yes Dental Care, Regularly: No Physical Activity Frequency: Daily Physical Activity Frequency Comment: WORK Seatbelt Use: always Sunscreen Use: No Assistive Devices: Glasses Review of Systems Review of Systems: All systems reviewed & are unremarkable except as noted in HPI & below Physical Exam Constitutional: WD/WN, vitals as above Eyes: EOM intact bilaterally; no conjunctival abnormality ENMT: external ear and nose normal, oropharynx normal Neck: trachea midline, no thyromegaly normal visual inspection Respiratory: normal respiratory effort, lungs clear to auscultation no respiratory distress Cardiovascular: RRR, no murmur, no edema Gastrointestinal (Abdomen): Inspection/Auscultation: abdomen normal to inspection; abdomen not distended Percussion/Palpation: abdomen soft; abdomen nontender, no guarding and abdomen not rigid Musculoskeletal: no cyanosis or clubbing, extremities motor strength 5/5 Skin: no rashes, warm and dry Neurologic: moves all extremities and awake Psychiatric: Orientation: alert, oriented to person and cooperative Results & Data Results & Data ([facility]) Vital Signs (Past 12 Hours) Vital Signs Temp Pulse Pulse Resp BP BP Pulse Ox 07/14/22 21:00 82 18 112/73 96 07/14/22 19:00 82 16 112/72 97 07/14/22 17:43 88 18 110/68 97 07/14/22 10:21 37.1 C 106 H 18 102/64 95 O2 Del Method 07/14/22 21:00 Room Air 07/14/22 19:00 Room Air 07/14/22 17:43 07/14/22 10:21 Room Air Code Status & VTE Plan VTE Prophylaxis Plan VTE Prophylaxis will be ordered: Yes PG Care Time/CCT Total # of Minutes Spent Total Time Spent with Patient: Total time spent is greater than 50% in coordination of care (as documented) at patient's floor/unit and/or counseling patient: Coding Level of Care Code 28240 Initial Inpt Care Lvl 3 Diagnoses Diarrhea R19.7 DULCE MARIA (acute kidney injury) N17.9 HTN (hypertension) I10 Crohns disease K50.90 Type 2 diabetes mellitus E11.9 DVT prophylaxis Z29.9
[2022-07-14] MEDS: LACTATED RINGER'S 1,000 ML IV SCH (22:26)
[2022-07-15] MEDS ORDERED: GLUCAGON FOR INJ 1 MG VIAL SQ PRN (00:54)
[2022-07-15] MEDS ORDERED: CARBOHYDRATES FOR HYPOGLYCEMIA PO PRN (00:54)
[2022-07-15] MEDS ORDERED: GLUCOSE 40% GEL 15 GM TUBE PO PRN (00:54)
[2022-07-15] MEDS ORDERED: PHARMACY GLYCEMIC MGMT CONSULT PRN (00:54)
[2022-07-15] MEDS ORDERED: ONDANSETRON INJ 2 MG/ML 2 ML VIAL IV PRN (00:54)
[2022-07-15] MEDS ORDERED: ACETAMINOPHEN 325 MG TAB PO PRN (00:54)
[2022-07-15] MEDS ORDERED: DEXTROSE 50% 50 ML SYRINGE IV PRN (00:54)
[2022-07-15] MEDS ORDERED: GLUCOSE 10 TAB/TUBE PO PRN (00:54)
[2022-07-15] MEDS ORDERED: INSULIN ASPART PER UNIT SC ONE (02:00)
[2022-07-15] MEDS: LACTATED RINGER'S 1,000 ML IV SCH ×3 (05:53→21:23)
[2022-07-15 06:25] LABS: Hematocrit (blood only) 40.3 % (40.1-51.0); Hemoglobin 13.9 g/dl (14.0-18.0); Mean Corpuscular Hemoglobin 31.7 pg (25.0-34.0); Mean Corpuscular Hgb Conc 34.5 g/dL (32.0-36.0); Mean Corpuscular Volume 91.8 fL (80.0-100.0); Mean Platelet Volume 10.5 fL (9.4-12.4); Platelet Count 198 K/uL (130-400); RDW Coefficient of Variation 12.1 % (11.5-14.5); RDW Standard Deviation 40.8 fL (36.4-46.3); Red Blood Count 4.39 M/uL (4.63-6.08); White Blood Count 9.81 K/ul (4.8-10.8)
[2022-07-15 06:51] LABS: BUN Creatinine Ratio 42.5 (10-20); Calcium 8.6 mg/dl (8.5-10.1); Creatinine Clr Calc Pharmacy 96.4 ml/min; Est GFR (Non-African American) 95.7 ml/min; Magnesium 2.2 mg/dl (1.7-2.4); Potassium 4.4 mmol/L (3.5-5.1)
--- NOTE | 2022-07-15 08:35 | Pharmacy Report ---
Pharmacy Glycemic Short Note 2 - Date of Service July 15, 2022 - Glycemic Short BSG Results (Last 24 hours): 07/14/22 07/15/22 07/15/22 11:15 02:08 05:46 Glucose 283 H 189 H POC Glucose 203 H OUTPATIENT ANTIDIABETIC REGIMEN: * Canagliflozin 100mg PO daily * A1c 7.4% 06/02/22 ASSESSMENT: * 62 year old male, admitted for diarrhea/ Crohn's flare, T2DM, pretty well controlled on only orals at home, but reports BSG more recently > 200, likely due to illness. * Started on Prednisone 40mg daily last night, will give NPH to cover steroid effects, and NovoLog CF/CR PLAN FOR INPATIENT GLYCEMIC CONTROL: * Hold outpatient oral diabetes medications * Basal insulin * NPH 25 units SQ daily with Prednisone * Bolus insulin * NovoLog per scale ACHS or Q6hrs while NPO * Goal Range: Low 110 mg/dL - High 140 mg/dL * Correction Factor: 25 mg/dL/unit * Nutritional / Prandial insulin per carb ratio of 1 unit per 8 grams CHO consumed
[2022-07-15] MEDS: HEPARIN SOD 5,000 UNIT/0.5 ML VIAL SQ SCH ×2 (08:57→21:24)
[2022-07-15] MEDS: PANTOprazole 40 MG TAB PO SCH (08:58)
[2022-07-15] MEDS: predniSONE 20 MG TAB PO SCH (08:59)
[2022-07-15] MEDS: ROSUVASTATIN CALCIUM 20 MG TAB PO SCH (08:59)
[2022-07-15] MEDS ORDERED: INSULIN HUMAN NPH SC SCH (09:00)
[2022-07-15] MEDS: INSULIN ASPART PER UNIT SC SCH ×4 (09:07→21:17)
--- NOTE | 2022-07-15 09:19 | Communication Note ---
Date of Service: July 15, 2022 Khoa Hale is an established patient of our office with a history of Crohn's ileitis on Stelara 90 mg injected every 8 weeks. He was last seen in our office by Nani Portillo PA-C on 06/23/22. At that time, he was reporting symptoms of bloody diarrhea and weight loss, concerning for active disease. He was recommended a colonoscopy which he refused citing scheduling difficulties. He was admitted to the hospital with watery diarrhea in the setting of COVID-19 infection. Tony Samaniego PA-C did discuss the case with Dr. Hanson and he was recommended to start Prednisone and Paxlovid. It appears he was initiated on Prednisone 40 mg daily but was not prescribed the antiviral. GI has been consulted for further recommendations. Labs reviewed. Biofire negative. ESR 59 and CRP 4.33. Electrolytes repleted. Hemodynamically stable. Suspect active Crohn's ileitis with worsened sx in the setting of COVID-19 infection. 1)Low residue diet. 2)Continue Prednisone 40 mg daily with titration of dose by 5 mg weekly until complete. 3)Recommend consideration of Paxlovid as per Dr. Hanson. 4)Schedule outpatient colonoscopy. 5)Supportive care per primary team.
--- NOTE | 2022-07-15 14:51 | Hospitalist Progress Note ---
Date of Service July 15, 2022 Assessment & Plan (1) Diarrhea: Plan: Reports 20 stools per day, non-bloody and no melena. Unclear whether GI Covid-19 symptoms vs. Crohn's flare vs. some of both. No abdominal pain. KUB in ER was normal. Stool BioFire negative including for C. difficile. Appreciate GI consultation Diarrhea is slowing down since starting steroids On Stelara injections every 8 weeks -Continue IV fluids -Continue prednisone 40 Mg daily and decrease by 5 Mg each week as per GI -Continue low residue -Plan for outpatient colonoscopy -Follow CBC, BMP, magnesium and replace electrolytes as needed (2) DULCE MARIA (acute kidney injury): Plan: Likely pre-renal from diarrhea. Baseline normal at 0.8; but was up to 1.3 on admission-now resolved - Continue IV fluids - Monitor BMP in the morning (3) HTN (hypertension): Plan: Blood pressures are acceptable -Continue to hold ARB for DULCE MARIA (4) Crohns disease: Plan: Follows with [facility]. On Stelara injections - Treat for flare as above -Continue PPI (5) Type 2 diabetes mellitus: Plan: A1c was 7.4% in 05/2022. Normally in low 100s per patient; more recently > 200, likely due to illness. - Hold home canagliflozin - Sliding scale insulin - Glycemic pharmacy consulted for management On NPH (6) DVT prophylaxis: Plan: Heparin 5,000 units SQ BID FULL CODE Disposition-offered to discharge home but he would like to stay overnight to ensure diarrhea continues to improve. Most likely discharged home tomorrow (7) COVID-19: Plan: Difficult to say when symptoms started. Diarrhea may also be from Crohn's but this started approximately 3 or 4 days prior to admission Not hypoxic and no respiratory symptoms-no steroids needed for this but is on prednisone as above for Crohn's flare Paxlovid is not available from this facility. Could consider Remdesivir but he may be outside the window for therapeutic effect Remain on isolation precautions (8) Dyslipidemia: Plan: Continue statin Admission and Anticipated Discharge Date Admission Date: July 14, 2022 Subjective Patient reports diarrhea is slowing down but still loose. No abdominal pains. No nausea or vomiting. He is eating well. No chest pains or shortness of breath. Review of Systems Review of Systems: All systems reviewed & are unremarkable except as noted in HPI & below Physical Exam Constitutional: WD/WN, vitals as above Eyes: + anicteric sclerae ENMT: external ear and nose normal, oropharynx normal Neck: trachea midline, no thyromegaly Respiratory: normal respiratory effort, lungs clear to auscultation Cardiovascular: RRR, no murmur, no edema Chest (Breasts): Chest: normal inspection of chest Gastrointestinal (Abdomen): normal bowel sounds, soft, nontender, no hepatosplenomegaly Musculoskeletal: Extremities: extremities normal to inspection; no cyanosis and no clubbing Skin: no rashes, warm and dry Neurologic: moves all extremities and awake; no focal motor deficits Psychiatric: A+Ox3, euthymic affect Lymphatic: no lymphedema Results & Data Results & Data ([facility]) Vital Signs (Past 12 Hours) Vital Signs Temp Pulse Resp BP Pulse Ox O2 Del Method 07/15/22 08:46 36.8 C 72 16 132/82 98 Room Air Laboratory Results 07/15/22 05:46 07/15/22 05:46 PG Care Time/CCT Total # of Minutes Spent Total Time Spent with Patient: Total time spent is greater than 50% in coordination of care (as documented) at patient's floor/unit and/or counseling patient: Coding Level of Care Code 58995 Subseq Hosp Care Lvl 2 Diagnoses Diarrhea R19.7 DULCE MARIA (acute kidney injury) N17.9 HTN (hypertension) I10 Crohns disease K50.90 Type 2 diabetes mellitus E11.9 DVT prophylaxis Z29.9 COVID-19 U07.1 Dyslipidemia E78.5
[2022-07-16] MEDS: LACTATED RINGER'S 1,000 ML IV SCH ×2 (06:12→15:13)
[2022-07-16] MEDS: INSULIN ASPART PER UNIT SC SCH ×2 (08:47→12:40)
[2022-07-16] MEDS: PANTOprazole 40 MG TAB PO SCH (08:53)
[2022-07-16] MEDS: HEPARIN SOD 5,000 UNIT/0.5 ML VIAL SQ SCH (08:53)
[2022-07-16] MEDS: predniSONE 20 MG TAB PO SCH (08:53)
[2022-07-16] MEDS: ROSUVASTATIN CALCIUM 20 MG TAB PO SCH (08:54)
[2022-07-16] MEDS ORDERED: INSULIN HUMAN NPH SC SCH (09:00)
[2022-07-16 10:42] LABS: Hematocrit (blood only) 38.3 % (40.1-51.0); Hemoglobin 13.2 g/dl (14.0-18.0); Mean Corpuscular Hemoglobin 31.1 pg (25.0-34.0); Mean Corpuscular Hgb Conc 34.5 g/dL (32.0-36.0); Mean Corpuscular Volume 90.3 fL (80.0-100.0); Mean Platelet Volume 10.3 fL (9.4-12.4); Platelet Count 194 K/uL (130-400); RDW Standard Deviation 39.4 fL (36.4-46.3); Red Blood Count 4.24 M/uL (4.63-6.08); White Blood Count 10.43 K/ul (4.8-10.8)
[2022-07-16 10:56] LABS: Basophils # (auto) 0.02 K/uL (0-0.2); Basophils % (auto) 0.2 %; Echinocytes 1+; Eosinophils # (auto) 0.01 K/uL (0-0.50); Eosinophils % (auto) 0.1 %; Lymphocytes # (auto) 1.84 K/uL (1.2-3.4); Lymphocytes % (auto) 17.6 %; Monocytes % (auto) 8.6 %; Neutrophils # (auto) 7.56 K/uL (1.4-6.5); Neutrophils % (auto) 72.5 %; Toxic Vacuolation 1+
[2022-07-16 11:08] LABS: BUN Creatinine Ratio 33.3 (10-20); Calcium 8.6 mg/dl (8.5-10.1); Creatinine Clr Calc Pharmacy 98.9 ml/min; Est GFR (African American) 112.1 ml/min; Est GFR (Non-African American) 96.7 ml/min; Magnesium 1.8 mg/dl (1.7-2.4); Potassium 3.6 mmol/L (3.5-5.1)
--- NOTE | 2022-07-16 13:54 | Discharge Summary ---
Date of Service July 16, 2022 Admission HPI Per Admitting Provider 62yo M w/ hx of Crohn's and HTN who presents with diarrhea and possible Crohn's flare. Reports diarrhea starting on Thursday. No blood or melenic stools, just watery and brown. No real abdominal pain. No known sick contacts. He reports 4-5 episodes of diarrhea each day. Also has Covid positive today. No real respiratory symptoms and does not know where he was exposed. 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 Principal Diagnosis Crohn's disease flare, diarrhea, COVID-19 Discharge Exam Constitutional WD/WN, vitals as above Eyes + anicteric sclerae Neck trachea midline, no thyromegaly Respiratory normal respiratory effort, lungs clear to auscultation Cardiovascular RRR, no murmur, no edema Chest (Breasts) Chest: normal inspection of chest Gastrointestinal (Abdomen) normal bowel sounds, soft, nontender, no hepatosplenomegaly Musculoskeletal Extremities: extremities normal to inspection; no cyanosis and no clubbing Skin no rashes, warm and dry Neurologic moves all extremities and awake; no focal motor deficits Psychiatric A+Ox3, euthymic affect Lymphatic no lymphedema Discharge Data Allergies Allergy/AdvReac Type Severity Reaction Status Date / Time lisinopril AdvReac Mild Dry Verified 06/23/22 08:14 scratchy throat with cough metformin AdvReac Mild STOMACH Verified 06/23/22 08:14 CRAMPS AND DIARRHEA ramipril AdvReac Mild Dry Verified 06/23/22 08:14 scratchy throat with cough aspirin AdvReac Unknown History of Verified 06/23/22 08:14 bleeding Consultations 07/14/22 21:00 ED Decision to Admit Stat 07/15/22 00:54 Consult Gastroenterology Routine Hospital Course (1) Diarrhea: Reports 20 stools per day, non-bloody and no melena. Unclear whether GI Covid-19 symptoms vs. Crohn's flare vs. some of both. No abdominal pain. KUB in ER was normal. Stool BioFire negative including for C. difficile. Appreciate GI consultation Diarrhea is slowing down since starting steroids, no abdominal pain, labs look good, not anemic On Stelara injections every 8 weeks Received IV fluids and started on prednisone high dose -Continue prednisone 40 Mg daily and decrease by 5 Mg each week as per GI -Continue low residue diet -Plan for outpatient colonoscopy Stable for dc to home (2) DULCE MARIA (acute kidney injury): Likely pre-renal from diarrhea and also on Invokana. Baseline normal at 0.8; but was up to 1.3 on admission-now resolved w/ IV fluids -ok to resume ARB and Invokana on discharge (3) HTN (hypertension): Blood pressures are acceptable continue ARB (4) Crohns disease: Follows with [facility]. On Stelara injections - Treat for flare as above -Continue PPI (5) Type 2 diabetes mellitus: A1c was 7.4% in 05/2022. Normally in low 100s per patient; more recently > 200, likely due to illness. -restart home canagliflozin with hyperglycemia from steroids, may need to adjust outpatient regimen with PCP (6) COVID-19: Difficult to say when symptoms started. Diarrhea may also be from Crohn's but this started approximately 3 or 4 days prior to admission Not hypoxic and no respiratory symptoms-no steroids needed for this but is on prednisone as above for Crohn's flare Paxlovid is not available from this facility. Could consider Remdesivir but he may be outside the window for therapeutic effect Remain on isolation precautions (7) Dyslipidemia: Continue statin (8) DVT prophylaxis: Heparin 5,000 units SQ BID FULL CODE Disposition-dc to home Total Time Total Time Spent Total Time Spent (In Minutes): 35 min Discharge Plan Discharge Items Patient Disposition: Home - Self-Care Reason For Visit: DIARRHEA, [place] Discharge Diagnosis: Crohn's disease flare, COVID-19, Diarrhea Condition on Discharge: Fair Activity: As commented below Bathing: No limitations Exercise/Sports: Gradually increase as tolerated Non-emergency contact: Primary Care Provider and Electrical And Instrument Engineer Call non-emergency contact if: you have any medication questions, your symptoms worsen and you have a fever Follow-up/Referrals: Roly Bird DO [Physician] - (You will be contacted with an appointment date and time for your colonoscopy.) Daljit Fernandes DO [Primary Care Provider] - 07/25/22 11:30 am Diet: Low Fiber Addtl Attending Provider Instructions: Drink plenty of fluids when you go home. Remain on the prednisone for the Crohn's disease flare at 40mg daily and decrease by 5mg daily each week until gone. You will need a colonoscopy and you will be contacted with this appointment date and time. If you have not heard anything in the next few days, please call the GI doctor's office. Pending Studies at Discharge: No Stand-Alone Forms: My [facility], Work/School Release, Smoking Cessation Medications and DC Order Prescriptions: New prednisone 10 mg tablet 40 mg PO DIRECTED Qty: 101 0RF Rx Instructions: daily x 5 days then 35mg daily x 7 days then decrease by 5mg daily each week until gone Continued Stelara 90 mg/mL syringe See Rx Instructions .ROUTE .COMPLEX Qty: 1 8RF Dose Instruction: INJECT 1 SYRINGE (90 MG) UNDER THE SKIN EVERY 8 WEEKS Rx Instructions: INJECT 1 SYRINGE (90 MG) UNDER THE SKIN EVERY 8 WEEKS rosuvastatin 20 mg tablet 20 mg PO QAM Qty: 90 3RF Invokana 100 mg tablet 100 mg PO QAM Qty: 30 6RF telmisartan 80 mg tablet 80 mg PO QAM Qty: 90 3RF diclofenac sodium 1 % gel 2 gm TOP QID PRN (Reason: Pain) cholecalciferol (vitamin D3) [Vitamin D3] 50 mcg (2,000 unit) Capsule 50 mcg PO QAM pantoprazole 20 mg tablet,delayed release (DR/EC) 20 mg PO QAM Rx Instructions: take 1 tablet by mouth every morning Discharge Orders: Discharge Order (Routine); Ordered 07/16/22 Ordered By: Mamta Erickson Admission Data Admit Date/Time: 07/14/22 21:52 Attending Provider: Mamta Erickson Admit Provider: Juno Mac Primary Care Provider: Daljit Fernandes Other Providers: Juno Mac ; Roly Bird Coding Level of Care Code D/C DAY MANAGEMENT >30 MINS Diagnoses Diarrhea R19.7 DULCE MARIA (acute kidney injury) N17.9 HTN (hypertension) I10 Crohns disease K50.90 Type 2 diabetes mellitus E11.9 COVID-19 U07.1 Dyslipidemia E78.5 DVT prophylaxis Z29.9
== END 2022-07-16 16:33 | disposition home or self-care (01) | DRG 385 ==
LOC: ED 09:43 → 3E 21:52 → SUATTDRO 21:52 → 3E 07-15 00:59 → UNDODISIN 07-16 14:19